=== PATIENT | female | born 1980 | race Caucasian/White ===

== ENCOUNTER 2023-05-05 08:56 | Outpatient (OUT) | payer OTHER, SELFPAY ==
[2023-05-05 09:53] LABS: Basophils Percent Auto 0.3 % (0.2-2.0); Eosinophils Absolute Auto 0.1 10^3/uL (0.0-0.7); Eosinophils Percent Auto 1.2 % (0.9-7.0); Hematocrit 36.1 % (36.0-48.0); Hemoglobin 11.2 g/dL (12.0-16.0); Immature Granulocytes Pct Auto 0.8 % (0.0-0.5); Lymphocytes Absolute Auto 2.1 10^3/uL (1.2-3.8); Lymphocytes Percent Auto 17.1 % (20.5-60.0); Mean Corpuscular Hemoglobin 26.3 pg (26.7-34.0); Mean Corpuscular Volume 84.7 fL (81.0-99.0); Mean Platelet Volume 9.4 fL (9.5-13.5); Monocytes Absolute Auto 0.9 10^3/uL (0.3-0.8); Monocytes Percent Auto 7.5 % (1.7-12.0); Neutrophils Absolute Auto 8.9 10^3/uL (1.4-6.5); Neutrophils Percent Auto 73.1 % (43.0-75.0); Platelet Count 412 10^3/uL (150-450); Red Blood Count 4.26 10^6/uL (4.20-5.40); Red Cell Distribution Width 14.3 % (11.0-15.0); White Blood Count 12.1 10^3/uL (4.0-11.0)
[2023-05-05 10:12] LABS: Alanine Aminotransferase 42 U/L (14-59); Albumin Globulin Ratio 0.8; Albumin Level 3.6 g/dL (3.4-5.0); Alkaline Phosphatase 134 U/L (46-116); Anion Gap 14.6; Aspartate Amino Transferase 26 U/L (15-37); BUN Creatinine Ratio 11.2; Bilirubin Total 0.2 mg/dL (0.2-1.0); Calcium 9.1 mg/dL (8.5-10.1); Carbon Dioxide 27.7 mmol/L (21.0-32.0); Chloride 99 mmol/L (98-107); Estimated GFR (African America >60 (>=60); Estimated GFR (Non-African Ame >60 (>=60); Globulin 4.6 g/dL; Glucose 123 mg/dL (74-106); Potassium 4.3 mmol/L (3.5-5.1); Sodium 137 mmol/L (136-145); Total Protein 8.2 g/dL (6.4-8.2)
[2023-05-05 10:14] LABS: Bilirubin Urine NEGATIVE (NEGATIVE); Blood Urine NEGATIVE (NEGATIVE); Clarity Urine CLEAR (CLEAR); Color Urine LT. YELLOW (YELLOW); Glucose Urine UA NEGATIVE (NEGATIVE); Ketones Urine NEGATIVE (NEGATIVE); Leukocyte Esterase Urine NEGATIVE (NEGATIVE); Nitrite Urine NEGATIVE (NEGATIVE); Protein Urine NEGATIVE (NEG/TRACE); Specific Gravity Urine >=1.030 (1.005-1.025); Urobilinogen Urine 0.2 EU/dL (0.2-1.0); pH Urine 5.5 (5.0-9.0)
[2023-05-05 10:22] LABS: Bacteria Urine SMALL #/HPF (NONE SEEN); Crystals Seen? None Seen #/HPF (None Seen); Free T3 2.71 pg/mL (2.18-3.98); Mucus Urine NONE SEEN (NONE SEEN); RBC Urine 0-2 #/HPF (0-2); Squamous Epithelial Cell Urine RARE #/LPF (NONE/RARE); Thyroid Stimulating Hormone 2.679 uIU/mL (0.358-3.740); WBC Urine NONE SEEN #/HPF (NONE SEEN)
[2023-05-05 10:23] LABS: Cast Seen? NONE SEEN #/LPF (NONE SEEN)
[2023-05-05 10:53] LABS: Estimated Average Glucose 131 mg/dL; Glycohemoglobin A1C 6.2 % (4.5-6.2)
[2023-05-06 04:08] LABS: Homocyst(e)ine 6.9 umol/L (0.0-14.5); Progesterone 7.9 ng/mL (.); Prolactin 21.4 ng/mL (4.8-23.3)
[2023-05-06 06:08] LABS: FSH 2.3 mIU/mL (.)
[2023-05-07 07:08] LABS: Mercury, Whole Blood 1.2 ug/L (0.0-14.9)
[2023-05-07 11:09] LABS: Lead, Blood (Adult) <1.0 ug/dL (0.0-3.4)
== END 2023-05-05 08:57 ==
LOC: LAB 09:01
PROVIDERS: PCP Family Medicine; Visit Provider Family Medicine
DX: R73.09 Other abnormal glucose (principal); I10 Essential (primary) hypertension; R31.9 Hematuria, unspecified
CPT/HCPCS: 36415; 80053; 81001; 82670; 83001; 83036; 83090; 83655; 83825; 84144; 84146; 84436; 84443; 84481; 85025; 87086

== ENCOUNTER 2023-10-29 16:45 | Outpatient (OUT) | payer OTHER, SELFPAY ==
[2023-10-29 17:07] LABS: Basophils Absolute Auto 0.1 10^3/uL (0.0-0.1); Basophils Percent Auto 0.3 % (0.2-2.0); Eosinophils Absolute Auto 0.1 10^3/uL (0.0-0.7); Eosinophils Percent Auto 0.7 % (0.9-7.0); Hematocrit 34.8 % (36.0-48.0); Hemoglobin 11.1 g/dL (12.0-16.0); Immature Granulocytes Abs Auto 0.07 10^3/uL (0.00-0.03); Immature Granulocytes Pct Auto 0.5 % (0.0-0.5); Lymphocytes Absolute Auto 2.7 10^3/uL (1.2-3.8); Lymphocytes Percent Auto 18.2 % (20.5-60.0); Mean Corpuscular HGB Conc 31.9 g/dL (29.9-35.2); Mean Corpuscular Hemoglobin 27.3 pg (26.7-34.0); Mean Corpuscular Volume 85.7 fL (81.0-99.0); Mean Platelet Volume 9.4 fL (9.5-13.5); Monocytes Absolute Auto 0.9 10^3/uL (0.3-0.8); Monocytes Percent Auto 6.3 % (1.7-12.0); Neutrophils Absolute Auto 10.9 10^3/uL (1.4-6.5); Platelet Count 463 10^3/uL (150-450); Red Blood Count 4.06 10^6/uL (4.20-5.40); Red Cell Distribution Width 13.8 % (11.0-15.0); White Blood Count 14.8 10^3/uL (4.0-11.0)
== END 2023-10-29 16:46 | disposition home or self-care (01) ==
PROVIDERS: PCP Family Medicine; Visit Provider Obstetrics & Gynecology
DX: N92.0 Excessive and frequent menstruation with regular cycle (principal)
CPT/HCPCS: 36415; 85025

== ENCOUNTER 2023-10-30 16:53 | Outpatient (OUT) | payer OTHER, SELFPAY ==
--- NOTE | 2023-10-30 | US_ITS ---
The [address] [address] Patient Name: LAURA TRUJILLO MRN: [id number] date: 1980 Sex: F Assigned Patient Location: Current Patient Location: Accession/Order Number: [id number] Exam Date: 10/30/2023 17:00 Report Date: 10/31/2023 06:48 At the request of: RENEE HA Procedure: US pelvis w/ transvaginal EXAMINATION: US pelvis w/ transvaginal HISTORY: Menorrhagia with regular cycle, N92.0 COMPARISON: No relevant comparison available. TECHNIQUE: Transabdominal and/or transvaginal sonographic examination was performed as indicated by examination type. FINDINGS: UTERUS: Numerous nabothian cysts within shelley of cervix, largest is 1.7 cm. Normal size, contour, and echotexture of the uterus. Uterus size: 10.2 x 5.5 x 5.2 cm ENDOMETRIUM: Heterogeneous echotexture and approaching upper limits of normal in thickness. Endometrial thickness: 13 mm RIGHT OVARY: Normal size and appearance. Blood flow present within ovary on color Doppler. Ovary size: 3.1 x 1.6 x 3.2 cm LEFT OVARY: Not seen. CUL-DE-SAC: Unremarkable. No significant free fluid. BLADDER: Unremarkable. OTHER: None. US/US pelvis w/ transvaginal IMPRESSION: 1. Heterogeneous endometrium, but no specific findings to account for patient's symptoms. Thickness approaches upper limits of normal; correlate with patient's stage in her menstrual cycle. Electronically authenticated by: BRIDGETTE PICKERING Date: 10/31/2023 06:48
== END 2023-10-30 16:54 | disposition home or self-care (01) ==
LOC: US 16:53
PROVIDERS: Visit Provider Obstetrics & Gynecology
DX: N92.0 Excessive and frequent menstruation with regular cycle (principal)
CPT/HCPCS: 76830; 76856

== ENCOUNTER 2024-01-27 08:49 | Outpatient (OUT) | payer SELFPAY ==
--- OUTSIDE RECORDS SUMMARY | 2024-01-27 08:55 | XMS_ITS | CCD ---
Author Name Unknown Address [address] [facility] [address] [place] [address] Organization [facility] Care Team Providers Care Straight Line Press Setter Name Role Phone Nill, Kyle R Unavailable Unavailable Nill, Kyle R Unavailable Unavailable Nill, Kyle R Unavailable Unavailable Joey, [phone] UNKNOWN Unavailable Unavailable JOEY, DR BRYAN Admitting Unavailable HOY, DR BRYAN Attending Unavailable HOY, DR BRYAN Primary Care Unavailable HOY, DR BRYAN Consulting Unavailable HOY, DR BRYAN Admitting Unavailable HOY, DR BRYAN Attending Unavailable HOY, DR BRYAN Primary Care Unavailable HOY, DR BRYAN Consulting Unavailable WEST, DR RALF Castillo Consulting Unavailable HOY, DR BRYAN Admitting Unavailable HOY, DR BRYAN Attending Unavailable HOY, DR BRYAN Primary Care Unavailable HOY, DR BRYAN Consulting Unavailable HOY, DR BRYAN Admitting Unavailable HOY, DR BRYAN Attending Unavailable HOY, DR BRYAN Primary Care Unavailable MISBAHY, DR BRYAN Consulting Unavailable Allergies Allergy Classification Reported Allergen(s) Allergy Type Date of Onset Reaction(s) Facility (1 source) Latex; Translations: [Latex] Propensity to adverse reactions (disorder) [facility] Active Problems Problem Classification Problem Date Documented Da te Episodic/Chronic Cardiac dysrhythmias (4 sources) Palpitations; Translations: [PALPITATIONS] Onset: 07-17-2022 Episodic Unclassified (3 sources) CONTACT W/AND (SUSP) EXPOS COVID-19; Translations: [CONTACT W/AND (SUSP) EXPOS COVID-19] Onset: 11-15-2021 Viral infection (1 source) COVID-19; Translations: [COVID-19] Onset: 08-11-2022 Past or Other Problems Problem Classification Problem Date Documented Da te Episodic/Chronic Acute bronchitis (1 source) Acute bronchitis, unspecified; Translations: [ACUTE BRONCHITIS UNSPECIFIED] Onset: 11-15-2021 Episodic Other diseases of veins and lymphatics (4 sources) Compression of vein; Translations: [COMPRESSION OF VEIN] Onset: 08-27-2021 Episodic Unclassified (1 source) CONTACT W/AND (SUSP) EXPOS COVID-19; Translations: [CONTACT W/AND (SUSP) EXPOS COVID-19] Onset: 08-08-2022 Results Test Name Value Interpretation Reference Range Facility Covid-19 PCR (CVDTB)on SARS-CoV-2 (COVID-19) RNA ANKITA+probe Ql (Unsp spec) Detected Critically abnormal NOT DETECTED [facility] Comment on above: Result Comment: This test is not yet zoe roved or cleared by the [place] FDA. When there are no FDA-approved or cleared tests available, and other criteria are met, FDA can make tests available under an emergency access mechanism called an Emergency Use Authorization (EUA). The EUA for this test is supported by the [place] of Health and Human Service's declaration that circumstances exist to justify the emergency use of in vitro diagnostics for the detection and/or diagnosis of the virus that causes COVID-19. This EUA will remain in effect for the duration of the COVID-19 declaration justifying emergency of IVDs, unless it is terminated or revoked by the FDA (after which the test may no longer be used). Performed By: #### [facility] #### [facility] [address] [place] [address] Dr. Bessie Pro Covid-19 PCR (CVDTB)on 10-31 SARS-CoV-2 (COVID-19) RNA ANKITA+probe Ql (Unsp spec) Not detected Normal NOT DETECTED [facility] Comment on above: Result Comment: This test is not yet zoe roved or cleared by the [place] FDA. When there are no FDA-approved or cleared tests available, and other criteria are met, FDA can make tests available under an emergency access mechanism called an Emergency Use Authorization (EUA). The EUA for this test is supported by the [place] Worker of Health and Human Service's (HHS's) declaration that circumstances exist to justify the emergency use of in vitro diagnostics for the detection and/or diagnosis of the virus that causes COVID-19. This EUA will remain in effect (meaning this test can be used) for the duration of the COVID-19 declaration justifying emergency of IVDs, unless it is terminated or revoked by FDA (after which the test may no longer be used). When diagnostic testing is negative, the possibility of a false negative should be considered in the context of a patient's recent exposures and the presence of clinical signs and symptoms consistent with SARS-CoV-2. Performed By: #### [facility] #### [facility] [address] ABD/PELVIS WO CONon 08-27 CT ABD/PELVIS WO CON EXAMINATION: CT ABD/PELVIS WO CON, 08/27/2021 8:31 AM EDT HISTORY: Obstruction of vein COMPARISON: None. TECHNIQUE: CT scan of the abdomen and pelvis was performed without IV contrast. CT dose reduction technique was used, including Automated Exposure Control. FINDINGS: LUNG BASES: 3 mm left lower lobe soft tissue density punctate nodule LIVER: No enlargement, atrophy, abnormal density, or significant focal lesion. BILIARY: No dilatation or calcification. PANCREAS: No lesion, fluid collection, ductal dilatation, or atrophy. SPLEEN: No enlargement or focal lesion. ADRENALS: No mass or enlargement. KIDNEYS: No mass, obstruction, or calcification. BOWEL/MESENTERY: No visible mass, obstruction, or bowel wall thickening. AORTA/VASCULAR: No aneurysm or dissection. RETROPERITONEUM: No mass or adenopathy. LYMPH NODES: No adenopathy. URINARY BLADDER: No visible focal wall thickening, lesion, or calculus. PELVIC ORGANS: Heterogeneous appearance of the lower uterine segment and cervix. Tubal ligation clips ABDOMINAL WALL: No mass or hernia. BONES: No bony lesion or fracture. OTHER: Negative. IMPRESSION: No central venous obstruction observed on this noncontrast exam Heterogeneous appearance of the lower uterine segment and cervix. Consider ultrasound for further evaluation Electronically authenticated by: RALF BENNETT Date: 2021-08-27 09:54 Normal [facility] Coding Summary.on 05-28-2018 Coding Summary. 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: Commercial Insurance APC DESCRIPTION 5301 Level 1 Upper GI Procedures 5311 Level 1 Lower GI Procedures ADMIT DX: REASON FOR VISIT DX: R10.10 Upper abdominal pain, unspecified FINAL DX: PRINCIPAL: K29.50 Unspecified chronic gastritis without bleeding SECONDARY: K44.9 Diaphragmatic hernia without obstruction or gangrene R19.4 Change in bowel habit K62.5 Hemorrhage of anus and rectum K21.9 Gastro-esophageal reflux disease without esophagitis I10 Essential (primary) hypertension F41.9 Anxiety disorder, unspecified F17.210 Nicotine dependence, cigarettes, uncomplicated E66.9 Obesity, unspecified Z68.39 Body mass index (BMI) 39.0-39.9, adult PYMT PROC APC STAT DESCRIPTION DOCTOR NAME DATE [id number] Kyle Churchill MD 05/25/2018 phagogastroduodenoscopy, flexible, transoral; with biopsy, single or multiple [id number] T Colonoscopy, flexible; Kyle Churchill MD 05/25/2018 diagnostic, including collection of specimen(s) by brushing or washing, when performed (separate procedure) 75951 Anesthesia for combined Kyle Churchill MD 05/25/2018 upper and lower gastrointestinal endoscopic procedures, endoscope introduced both proximal to and distal to the duodenum NOTE: The code number assigned matches the documented diagnosis and / or procedure in the patient's chart. However, the narrative phrase printed from the coding software may appear abbreviated, or result in slightly different terminology. Coded By: Deisy Robles Date Saved: 05/28/2018 02:11 pm [facility] Main OR Intraoperative Recor sabra 05-26-2018 Main OR Intraoperative Record IntraOp Document Type FT Summary Primary Physician: Kyle Churchill MD Finalized Date/Time: 05/26/18 12:57:13 Pt. Name: LAURA TRUJILLO/Sex: 1980 Female Med Rec #: [id number] Physician: Kyle Churchill MD Financial #: [id number] Pt. Type: O Room/Bed: / Admit/Disch: 05/25/18 06:36:31 - 05/25/18 23:59:59 Institution: Case Times FT Entry 1 Patient Times In Room 05/25/18 08:02:00 Out Room 05/25/18 08:28:00 Procedure Times Start 05/25/18 08:09:00 Stop 05/25/18 08:26:00 Anesthesia Times Start 05/25/18 08:02:00 Stop 05/25/18 08:28:00 Time at [place] 05/25/18 08:20:00 Last Modified By: Petra Cohen CST 05/25/18 08:28:32 General Comments: 0815 Colonoscopy started 05/26/2018 Chart opened to review and send charges [facility] PICKING TECH Case Attendance FT Entry 1 Entry 2 Entry 3 Case Attendee Herbert LOCK, Amira Churchill MD, Kyle Woods RN, Venessa Shabazz Role Performed Anesthesiologist Surgeon - Primary Fleet Dispatch Manager - Primary Seismograph Shooter Time In 05/25/18 08:02:00 05/25/18 08:02:00 05/25/18 08:02:00 Time Out 05/25/18 08:28:00 05/25/18 08:28:00 05/25/18 08:28:00 Procedure EGD AND COLONOSCOPY(.) EGD AND COLONOSCOPY(.) EGD AND COLONOSCOPY(.) Comments Dr. Bae supervising Last Modified By: Peggy RN, Venessa Woods RN, Venessa Woods RN, Venessa Shabazz 05/25/18 10:06:46 05/25/18 08:28:33 05/25/18 08:28:33 Entry 4 Entry 5 Case Attendee Gael PATTERSON, Richa Gonzales CST, Conner Braxton Role Performed Fleet Dispatch Manager - Primary Scrub - Primary Time In 05/25/18 08:02:00 05/25/18 08:02:00 Time Out 05/25/18 08:28:00 05/25/18 08:28:00 Procedure EGD AND COLONOSCOPY(.) EGD AND COLONOSCOPY(.) Comments Last Modified By: Peggy PATTERSON, Venessa Woods RN, Venessa N 05/25/18 08:28:33 05/25/18 08:28:33 General Comments: Dr. Bae supervising Perioperative Protocols FT Pre-Care Text: Implements protective measures prior to operative or invasive procedure, confirms identity before the operative or invasive procedure, verifies operative procedure, surgical site, and laterality Entry 1 Procedure(s) EGD AND COLONOSCOPY(.) Patient Identity Birthday, Blood Band, Verified (select at ID Band Check, Patient least 2): Participation Consents / H and P Anesthesia Consent, Operative Site N/A Verified HandP, Surgery/Procedure Marking Verified Consent Surgical Site Yes Laterality Verified Yes Verified Procedure Verified Yes Correct Patient Yes Position Verified Availability Equipment, Medication Prep Dry Yes Verified (If Applicable) PreOp Antibiotic No Time Out Herbert LOCK, Amira M, Given Participants Zhao ARGUELLO, Kyle Larry, Peggy PATTERSON, Venessa Shabazz, Gael RN, Richa Braxton, Christian HERNÁNDEZ, Conner Braxton Time Out Complete 05/25/18 08:05:00 Outcomes Met? Yes Last Modified By: Venessa Woods RN 05/25/18 08:29:08 Post-Care Text: The patient is free from signs and symptoms of injury caused by extraneous objects Allergy Information FT Pre-Care Text: Verifies allergies Entry 1 Allergies Reviewed? Yes Allergies Reviewed Self/Patient With Outcomes Met? Yes Last Modified By: Venessa Woods RN 05/25/18 07:02:29 Post-Care Text: The patient received appropriate medication(s) safely administered during the perioperative period Surgical Procedures FT Entry 1 Procedure Description Procedure EGD AND COLONOSCOPY Modifiers . Surgeon Description Small hiatia hernia, mild antral gastritis, normal colon Primary Procedure Yes Primary Surgeon Zhao ARGUELLO, Kyle Larry Start 05/25/18 08:09:00 Stop 05/25/18 08:26:00 Anesthesia Type General Surgical Service General Wound Class 2 - Clean-Contaminated Last Modified By: Venessa Woods RN 05/26/18 12:57:11 General Case Data FT Pre-Care Text: Classifies surgical wound, implements aseptic technique, initiates traffic control Entry 1 Case Information OR ENDO 2 FT Case Level Level 2 Wound Class 2 - Clean-Contaminated Specialty General ASA Class 2 Preop Diagnosis BLOOD IN STOOL, Postop Same As Preop No EPIGASTRIC PAIN, GERD Postop Diagnosis small hiatia hernia, Outcomes Met? Yes mild antral gastritis, normal colon Last Modified By: Venessa Woods RN 05/25/18 08:31:18 Post-Care Text: The patient is free from signs and symptoms of infection Skin Assessment (Pre Procedure) FT Pre-Care Text: Implements protective measures to prevent skin/ tissue injury due to thermal or mechanical sources Evaluates for signs and symptoms of physical injury to skin and tissue Entry 1 Skin Integrity Intact, [place], Warm, and Skin Abnormality No Dry Outcomes Met? Yes Last Modified By: Venessa Woods RN 05/25/18 07:03:36 Post-Care Text: The patient is free from signs and symptoms of injury caused by extraneous objects Patient Positioning FT Pre-Care Text: Identifies physical alterations that require additional precautions for procedure-specific positioning, verifies presence of prosthetics or corrective devices, positions the patient, evaluates the patient for signs and symptoms of injury as a result of positioning Entry 1 Procedure EGD AND COLONOSCOPY(.) Body Position Lateral, right side up Feet Uncrossed? Yes Left Arm Position Resting at Side Right Arm Position Resting at Side Left Leg Position Extended Right Leg Position Extended Positioning Device Pillow Under Head Large Press Points Checked Yes By Venessa Woods RN, Amira Bermudez Nill MD, Kyle Larry Outcomes Met? Yes Last Modified By: Venessa Woods RN 05/25/18 07:05:10 Post-Care Text: The patient is free from signs and symptoms of injury related to positioning Patient Care Devices FT Pre-Care Text: Implements protective measures to prevent skin/ tissue injury due to thermal or mechanical sources Entry 1 Entry 2 Equipment Type ENDOSCOPY VIDEO MONITOR CHARGE SURGERY SYSTEM[F] [F] Equipment Number Equipment Setting Outcomes Met? Yes Yes Last Modified By: Venessa Woods RN, RN, Tara N 05/26/18 12:56:47 05/26/18 12:56:47 Post-Care Text: The patient is free from signs and symptoms of injury caused by extraneous objects Transport To OR Pre-Care Text: Transports according to individual needs. Evaluates for signs and symptoms of skin and tissue injury as a result of transfer or transport Entry 1 Via Cart By Venessa Woods RN Safety Precautions Side Rails Up Outcomes Met? Yes Last Modified By: Venessa Woods RN 05/25/18 07:06:00 Post-Care Text: The patient is free from signs and symptoms of injury related to transfer/transport Departure From OR Pre-Care Text: Transports according to individual needs. Evaluates for signs and symptoms of skin and tissue injury as a result of transfer or transport. Entry 1 Via Cart Safety Precautions Side Rails Up PostOp Destination PACU Transported By Venessa Woods RN Patient Status Stable Skin. Condition Intact, [place], Warm, and Dry Airway Maintenance Oxygen in Use? No Outcomes Met? Yes Last Modified By: Venessa Woods RN 05/25/18 07:06:29 Post-Care Text: The patient is free from signs and symptoms of injury related to transfer/transport General Comments: Report given to LAUNDERER HAND - MARGE PATTERSONcutter operator Administration FT Pre-Care Text: Verifies allergies, administers prescribed medications and solutions, administers prescribed antibiotic therapy and immunizing agents as ordered, evaluates response to medications Administers prescribed medications and solutions Entry 1 Route of Admin Field Expiration Date Yes Verified Outcomes Met? Yes Last Modified By: Venessa Woods RN 05/25/18 07:06:41 Post-Care Text: The patient received appropriate medication(s) safely administered during the perioperative period For [facility] please see scanned medication reconcilliation form for medications used at the field during the procedure. Cultures and Specimens FT Pre-Care Text: Manages specimen handling and disposition Manages culture specimen collection Entry 1 Specimens Ordered Yes Specimen Disposition Designated OR Area Frozen Section Times Outcomes Met? Yes Last Modified By: Venessa Woods RN 05/25/18 07:07:22 Post-Care Text: The patient is free from signs and symptoms of injury caused by extraneous objects The patient is free from signs and symptoms of infection Case Comments Finalized By: Venessa Woods RN Document Signatures Signed By: Venessa Woods RN 05/25/18 08:31 Petra Cohen CST 05/26/18 12:15 Venessa Woods RN 05/26/18 12:57 [facility] History and Physicalon 05-25 History and Physical Patient: LAURA TRUJILLO Age: 38 years Sex: Female : 1980 Associated Diagnoses: None Author: Kyle Churchill MD Subjective no changes to H & P [facility] Comment on above: Result Comment: Electronically Signed By : Kyle Churchill MD\.br\Date and Time Signed: 05/25/18 08:33 EDT Inpatient Patient Summaryon 05-25-2018 In[facility] Dis[facility] InstructionsPERSON INFORMATION Name: LAURA TRUJILLO PHYSICIANS Admitting Physician: Kyle Churchill MD Physician: Kyle Churchill MD PCP: Alber Cook MD Diagnosis: Antral gastritis Comment: PATIENT EDUCATION INFORMATIONInstructions:Medicati on Leaflets:Follow up:With: Address: When: Kyle Churchill [address] [place] [phone] Business (1) Within 2 weeks MEDICATION LISTComment: [facility] Main OR PACU I Recordon 05-02 Main OR PACU I Record PACU Phase I Document Type FT Summary Primary Physician: Kyle Churchill MD Finalized Date/Time: 05/25/18 09:10:36 Pt. Name: LAURA TRUJILLO Clay UgaldeB./Sex: 1980 Female Med Rec #: [id number] Physician: Kyle Churchill MD Financial #: [id number] Pt. Type: O Room/Bed: / Admit/Disch: 05/25/18 06:36:31 - Institution: Case Times PACU I FT Pre-Care Text: Identifies barriers to communication and implements measures to provide psychological support Develops individualized plan of care, and ensures continuity of care Maintains patient's dignity and privacy, and maintains patient confidentiality Identifies and reports philosophical, cultural, and spiritual beliefs and values Identifies individual values and wishes concerning care Implements aseptic technique, and administers prescribed antibiotic therapy and immunizing agents as ordered Evaluates postoperative tissue perfusion Implements thermoregulation measures, and monitors body temperature Evaluates postoperative respiratory status Evaluates postoperative cardiac status Evaluates postoperative neurological status Assesses pain control, collaborated in initiating patient-controlled analgesia and implements alternative methods of pain control Verifies allergies, administers prescribed medications and solutions, evaluates response to medications Entry 1 In PACU I 05/25/18 08:29:00 Discharge from PACU 05/25/18 08:59:00 I Outcomes Met? Yes Last Modified By: Mary Rodriguez RN 05/25/18 09:10:26 Post-Care Text: The patient demonstrates knowledge of the expected response to the operative or invasive procedure The patient's care is consistent with the individualized perioperative plan of care The patient's right to privacy is maintained The patient's value system, lifestyle, ethnicity, and culture are considered, respected, and incorporated into the perioperative plan of care The patient participates in decisions affecting his or her perioperative plan of care The patient is free from signs and symptoms of infection The patient has wound/tissue perfusion consistent with or improved from baseline levels established preoperatively The patient is at or returning to normothermia at the conclusion of the immediate postoperative period The patient's respiratory function is consistent with or improved from baseline levels established preoperatively The patient's cardiovascular status is consistent with or improved from baseline levels established preoperatively The patient's cardiovascular status is consistent with or improved from baseline levels established preoperatively The patient demonstrates and/or reports adequate pain control throughout the perioperative period The patient received appropriate medication(s), safely administered during the perioperative period Acuity Level PACU I FT Entry 1 Start Time 05/25/18 08:29:00 Stop Time 05/25/18 08:59:00 Acuity Level Acuity Level I Last Modified By: Mary Rodriguez RN 05/25/18 09:10:35 Finalized By: Mary Rodriguez RN Document Signatures Signed By: Mary Rodriguez RN 05/25/18 09:10 [facility] Main OR Preoperative Recordo n 05-25-2018 Main OR Preoperative Record Holding Area Document Type FT Summary Primary Physician: Kyle Churchill MD Finalized Date/Time: 05/25/18 07:18:47 Pt. Name: CASSANDRALAURA/Sex: 1980 Female Med Rec #: [id number] Physician: Kyle Churchill MD Financial #: [id number] Pt. Type: O Room/Bed: / Admit/Disch: 05/25/18 06:36:31 - Institution: Case Times Holding FT Pre-Care Text: Verifies consent for planned procedure, identifies individual values and wishes concerning care, includes family members in perioperative teaching Secures patient's records' belongings, and valuables, maintains patient's dignity and privacy, and maintains patient confidentiality Entry 1 In Holding 05/25/18 06:46:00 Outcomes Met? Yes Last Modified By: Carla Curyr RN 05/25/18 07:01:53 Post-Care Text: The patient participates in decisions affecting his or her perioperative plan of care The patient's right to privacy is maintained Surgery Checklist FT Entry 1 Patient Birthday, ID Band Procedure History and Physical, Identification: Check, Patient Verification: Surgical Consent, With Participation Patient NPO after Midnight: Yes Results Reviewed None Comments: Personal Items: Jewelry Personal Items Ring Comment: Complaints of Pain: No Pain Comment: Denies Operative Site n/a Availability Equipment Marking: Verified: Does Patient Smoke Yes If Yes to Smoking. 1/2 ppd / vapor Cigars or Cigarettes. How much per day? Patient states Yes Comment - Adult Spouse/daughter postop adult Supervision supervision available Case Cancelled in No Holding Area see comments below for reason Last Modified By: Carla Curry RN 05/25/18 07:18:39 Finalized By: Carla Curry RN Document Signatures Signed By: Carla Curry RN 05/25/18 07:18 [facility] Operative Reporton Operative Report Date of Surgery: 05/25/2018SURGEON: Kyle Churchill M.D.PREOPERATIVE DIAGNOSIS: Upper abdominal pain, bowel changes, globussensation, gastroesophageal reflux diseasePOSTOPERATIVE DIAGNOSIS: Small sliding type hiatal hernia as well as mildantral gastritis, normal colonoscopy to cecumOPERATION: Esophagogastroduodenoscopy with antral biopsy, cold biopsyforceps and colonoscopy to cecumANESTHESIA: GeneralINDICATIONS AND CONSENT: The patient is a 38 year old female with longhistory of abdominal complaints with a globus sensation as well as somereflux symptoms and nonspecific abdominal pain as well as bowel changes.Indications, risks, benefits, alternatives of proceeding withesophagogastroduodenoscopy and colonoscopy were explained extensively tothe patient including risk of bleeding, aspiration, esophagogastric,colonic perforation or anesthetic complications. All of her questions wereanswered. Informed consent was obtained.PROCEDURE: The patient brought to the Operating Room and placed in theleft lateral decubitus position. Monitored anesthesia care was provided.Bite block was placed in the patient's mouth. Scope was inserted into theoropharynx. Under direct visualization it was advanced into the esophagus,past the cricopharyngeus down to the stomach. The stomach was insufflatedwith air. The pylorus was traversed down the descending portion of theduodenum. There was no evidence of duodenitis or ulcerations. No scarringwithin the pyloric channel. The scope was pulled back into the stomach.There was noted to be some mild antral gastritis without ulceration. Biopsywas obtained with cold biopsy forceps with good hemostasis. The scope wasretroflexed. There was noted to be a small sliding type hiatal hernia. Thegastroesophageal junction was noted at 38 cm. There was no distalesophagitis of Tan's changes. The remained of the esophagus wasunremarkable. The scope was then withdrawn. The patient was thenpositioned for colonoscopy. Rectal examination was performed whichrevealed no masses or blood. The scope was then inserted at the anal canal.Under direct visualization it was advanced. It was advanced to the cecumwhere cecal markings were clearly identified. Upon withdrawal of the scopethe mucosal surfaces were carefully examined. There were no mass, lesionsor polyps. No inflammatory changes or ulcerations. No significantdiverticulosis. The scope was retroflexed in the anal canal. There wasnoted to be some prominent rectal veins. No significant hemorrhoidaldisease. The scope was then withdrawn. The patient tolerated the procedurewell and was sent to Recovery Room in good condition.Kyle Churchill M.D.lkrDictated: 05/25/2018 #[id number]: 05/25/2018 #[id number]: Tai Courtney M.D. [facility] Comment on above: Result Comment: Electronically Signed By : Kyle Churchill MD\Date and Time Signed: 05/25/18 09:18 EDT Patient Education - Texton 0 05-25-2018 Patient Education - Text [facility] Progress Note-Physicianon Progress Note-Physician Patient: LAURA TRUJILLO Age: 38 years Sex: Female : 1980 Associated Diagnoses: None Author: Petr Bae JR, DO Postoperative Information Post Operative Note: Post Anesthesia Care Unit. Anesthetic utilized: General, Monitored anesthesia care. Health Status Allergies: Allergic Reactions (Selected)Severity Not DocumentedLatex- Unknown. Current medications: (Selected) Inpatient MedicationsOrderedSodium Chloride 0.9% IV Evelin 1000 mL 1,000 mL: 1,000 mL, IV, 20 mL/hr, Routine, Start date 05/25/18 7:03:00 EDT, 50 hour(s), Total volume (mL): 1,000Documented MedicationsDocumentedCardizem: 240 mg, Oral, Daily, Refills(s) 0, Irregular heartbeatCelexa: 40 mg, Oral, Daily, Refills(s) 0, DepressionProtonix: 40 mg, Oral, Daily, Refills(s) 0, Control of stomach acidlisinopril: 10 mg, Oral, Daily, Refills(s) 0, High blood pressure Problem list: No problem items selected or recorded. Physical Examination Intake and Output Denies significant n/v and is tolerating p.o. Vitals Signs (last 24 hrs) Last Charted Minimum MaximumTemp 36.7 (MAY 25 08:29) 36.7 (MAY 25 07:01) 36.7 (MAY 25 07:01)Heart Rate L 58 (MAY 25 08:50) L 58 (MAY 25 07:01) 92 (MAY 25 08:05)Resp Rate 17 (MAY 25 08:50) 13 (MAY 25 08:35) 17 (MAY 25 08:40)SBP 122 (MAY 25 08:50) 94 (MAY 25 08:25) 148 (MAY 25 08:10)DBP 77 (MAY 25 08:50) 48 (MAY 25 08:20) 115 (MAY 25 08:08)SpO2 99 (MAY 25 08:50) 97 (MAY 25 07:01) 100 (MAY 25 08:05) Pain assessment: Pain Assessment 05/25/2018 08:50 EDT Pain Symptoms Self Report No, able to self report 05/25/2018 08:40 EDT Pain Symptoms Self Report No, able to self report 05/25/2018 08:29 EDT Pain Symptoms Self Report No, able to self report . Respiratory: Adequate air exchange with temple of preoperative function.. Cardiovascular: Cardiovascular function is stable and has returned to preoperative levels.. Neurologic: Pt has returned to preoperative baseline.. Review / Management Condition: Stable. Assessment Anesthetic outcome No anesthetic complications noted. Plan Transfer/ Discharge: Patient can be discharged from PACU when criteria met. Condition good. [facility] Comment on above: Result Comment: Electronically Signed By : Petr Bae JR, DO\.br\Date and Time Signed: 05/25/18 10:34 EDT Progress Note-Physicianon Progress Note-Physician Patient: LAURA TRUJILLO Age: 38 years Sex: Female : 1980 Associated Diagnoses: None Author: Petr Bae JR, DO Preoperative Information Anesthesia history: Patient History: Pt./ family denies any personal or family hx of problems/difficulties with anesthesia.. Re-eval prior to induction: Inital eval reviewed: No significant interval change, NPO 10 hours, except for GI. prep which ( when administered ), was completed at least 4 hours prior to the procedure.. Anesthesia results Review of Systems Constitutional: See nursing assessment.. Cardiovascular: Cardiac risk assessment performed. Pt. denies any significant change in their cv hx.. Respiratory: Pt. denies any signicant change in their respiratory status.. Neurologic: Pt. denies any acute neurological changes.. Health Status Allergies: No active allergies have been recorded., No qualifying data available Current medications: (Selected) Documented MedicationsDocumentedCardizem: 240 mg, Oral, Daily, Refills(s) 0, Irregular heartbeatCelexa: 40 mg, Oral, Daily, Refills(s) 0, DepressionProtonix: 40 mg, Oral, Daily, Refills(s) 0, Control of stomach acidlisinopril: 10 mg, Oral, Daily, Refills(s) 0, High blood pressure, No qualifying data available Problem list: No problem items selected or recorded., No qualifying data available Histories Past Medical History: No active or resolved past medical history items have been selected or recorded. Family History: No family history items have been selected or recorded. Procedure history: No active procedure history items have been selected or recorded. Social History Social & Psychosocial HabitsNo Data Available. Physical Examination No qualifying data available Airway: Normal oral/pharyngeal anatomy.. Respiratory: Adequate air exchange.. Cardiovascular: Adequate perfusion and function. Review / Management Results review: No qualifying data available. Plan [place] Society of Anesthesiologists (ASA) physical status classification: Class II. Anesthetic Preoperative Plan Anesthesia: Monitored anesthesia care and general anesthesia if required.. Anesthetic plan, risks, benefits, and alternatives discussed with the patient and/or family. Pt. and/or family present and agree to proceed as planned.. Discussed the importance of abstaining from tobacco products, and offered counseling if desired.. [facility] Comment on above: Result Comment: Electronically Signed By : Petr Bae JR, DO.joie\Date and Time Signed: 05/24/18 19:59 EDT Encounters Encounter Date Encounter Type Care Provider Facility Start: 08-08-2022 End: 08-08-[address] IRVIN COOK Facility:[facility] Start: 07-17-2022 End: 07-18-[address] IRVIN COOK Facility:[facility] Start: 11-09-2021 End: 11-09-[address] IRVIN COOK Facility:[facility] Start: 08-27-2021 End: 08-28-[address] IRVIN COOK Facility:[facility] Start: 05-25-2018 End: 05-26-2018 Ambulatory Kyle Churchill Facility:[facility] Payers Date Payer Category Payer Private Health Insurance 1980 Unknown [id number] [id number] [id number] 1980 Unknown [id number] [id number] [id number] 1980 Unknown [id number] 2.16.84 [id number] 1980 Unknown [id number] 2.16.84 [id number] 1958 Private Health Insurance [id number] 1958 Private Health Insurance [id number] Summary Purpose Family History No Family History Records FoundNo Family History Records Found Advance Directives No Advanced Directives Records FoundNo Advanced Directives Records Found Additional Source Comments INFORMATION SOURCE (unrecogn ized section and content) DATE CREATED AUTHOR 05/28/2018 [facility] DATE CREATED AUTHOR AUTHOR'S KRISHNA ATIKE 08/11/2022 The [facility] FOR RECORDS PERTAINING TO PATIENTS WHO ARE OR HAVE BEEN ENROLLED IN A CHEMICAL DEPENDENCY/SUBSTANCEABUSE PROGRAM, SOME INFORMATION MAY BE OMITTED. This clinical summary was aggregated from multiple sources. Caution should be exercised in using it in the provision of clinical care. This summary normalizes information from multiple sources, and as a consequence, information in this document may materially change the coding, format and clinical context of patient data. In addition, data may be omitted in some cases. CLINICAL DECISIONS SHOULD BE BASED ON THE PRIMARY CLINICAL RECORDS. [employer] [facility]. provides no warranty or guarantee of the accuracy or completeness of information in this document.
--- NOTE | 2024-01-27 09:02 | ECG_ITS ---
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
--- NOTE | 2024-01-27 09:52 | XR_ITS ---
The [address] [address] Patient Name: LAURA TRUJILLO MRN: [id number] date: 1980 Sex: F Assigned Patient Location: SURGOUT Current Patient Location: [facility] Accession/Order Number: [id number] Exam Date: 01/27/2024 09:45 Report Date: 01/27/2024 10:03 At the request of: RICK KING Procedure: XR chest 2V EXAM: XR chest 2V HISTORY: Preop exam COMPARISON: None. TECHNIQUE: PA and lateral views of the chest. FINDINGS: The cardiomediastinal silhouette is normal. No focal consolidation is identified. There is no pneumothorax. No pleural effusion is noted. The osseous structures are intact. XR/XR chest 2V IMPRESSION: No acute cardiopulmonary process. Electronically authenticated by: SORAYA SANTOS Date: 01/27/2024 10:03
== END 2024-01-27 08:50 | disposition home or self-care (01) ==
LOC: PST 08:52
PROVIDERS: Visit Provider Obstetrics & Gynecology
DX: Z01.810 Encounter for preprocedural cardiovascular examination (principal); R10.2 Pelvic and perineal pain; N92.6 Irregular menstruation, unspecified
CPT/HCPCS: 71046; 93005

== ENCOUNTER 2024-02-16 14:21 | Outpatient (OUT) | payer OTHER, SELFPAY | END 2024-02-16 14:22 | disposition home or self-care (01) | LOC: PST 14:22 | PROVIDERS: Visit Provider Obstetrics & Gynecology | DX: Z01.818 Encounter for other preprocedural examination (principal); Z30.2 Encounter for sterilization; R10.2 Pelvic and perineal pain; N92.6 Irregular menstruation, unspecified ==

== ENCOUNTER 2024-02-19 10:57 | Day surgery (SDC) | payer OTHER, SELFPAY ==
[2024-01-27 09:39] VITALS: BP 129/84; PULSE 74; RESP 16; TEMP 36.3; O2SAT 99; BMI 45.4
[2024-02-19] VITALS (13 sets, daily range): BP systolic 120–177; BP diastolic 64–88; PULSE 75–88; RESP 13–29; TEMP 36.1; O2SAT 89–98; BMI 45.0
--- OUTSIDE RECORDS SUMMARY | 2024-02-19 11:16 | XMS_ITS | CCD ---
Author Organization [facility] Care Team Providers Care Newsroom Intern Name Role Phone Nill, Kyle R Unavailable Unavailable Nill, Kyle R Unavailable Unavailable Nill, Kyle R Unavailable Unavailable Jeoy, Irvin~[phone] UNKNOWN Unavailable Unavailable JOEY, DR BRYAN Admitting Unavailable IMSBAHY, DR BRYAN Attending Unavailable MISBAHY, DR BRYAN Primary Care Unavailable JOEY, DR BRYAN Consulting Unavailable JOEY, DR BRYAN Admitting Unavailable HOY, DR BRYAN Attending Unavailable MISBAHY, DR BRYAN Primary Care Unavailable MISBAHY, DR BRYAN Consulting Unavailable WEST, DR RALF Castillo Consulting Unavailable JOEY, DR BRYAN Admitting Unavailable JOEY, DR BRYAN Attending Unavailable JOEY, DR BRYAN Primary Care Unavailable HOY, DR BRYAN Consulting Unavailable MISBAHY, DR BRYAN Admitting Unavailable HOY, DR BRYAN Attending Unavailable JOEY, DR BRYAN Primary Care Unavailable JOEY, DR BRYAN Consulting Unavailable Allergies Allergy Classification Reported Allergen(s) Allergy Type Date of Onset Reaction(s) Facility (1 source) Latex; Translations: [Latex] Propensity to adverse reactions (disorder) [facility] Repository Problems Active Problems Problem Classification Problem [...] spec) Detected Critically abnormal NOT DETECTED The [facility] Comment on above: Result Comment: This test is not yet zoe roved or cleared by the [place] FDA. When there are no FDA-approved or cleared tests available, and other criteria are met, FDA can make tests available under an emergency access mechanism called an Emergency Use Authorization (EUA). The EUA for this test is supported by the [place] of Health and Human Service's declaration that [...] longer be used). Performed By: #### [facility] #### [facility] [address] [place] [address] Dr. Bessie Pro Covid-19 PCR ([facility])on 10-31 SARS-CoV-2 (COVID-19) RNA ANKITA+probe Ql (Unsp spec) Not detected Normal NOT DETECTED [facility] Comment on above: Result Comment: This test is not yet zoe roved or cleared by the [place] FDA. When there are no FDA-approved or cleared tests available, and other criteria are met, FDA can make tests available under an emergency access mechanism called an Emergency Use Authorization (EUA). The EUA for this test is supported by the [place] Consultant of Health and Human Service's (HHS's) declaration [...] consistent with SARS-CoV-2. Performed By: #### C [facility] #### [facility] [address] ABD/PELVIS WO CONon [...] RALF BENNETT Date: 2021-08-27 09:54 Normal [facility] Coding Summary.on 05-28-2018 Coding Summary. CODING DATE: 018 FINAL [facility] STATUS: Home (Routine DC) PAYOR: Commercial [...] PROC APC STAT DESCRIPTION DOCTOR NAME DATE 87817 2 Kyle Churchill MD 05/25/2018 phagogastroduodenoscopy, flexible, transoral; with biopsy, single or multiple [id number] T Colonoscopy, flexible; Kyle Churchill MD 05/25/2018 diagnostic, including collection of specimen(s) by brushing or washing, when performed (separate procedure) 37818 Anesthesia for combined Kyle Churchill MD 05/25/2018 [...] Deisy Robles Date Saved: 05/28/2018 02:11 pm [facility] Main OR Intraoperative Recor don 05-26-2018 Main OR Intraoperative Record IntraOp Document Type FT Summary Primary Physician: Kyle Churchill MD Finalized Date/Time: 05/26/18 12:57:13 Pt. Name: LAURA TRUJILLO/Sex: 1980 Female Med Rec #: [id number] Physician: Kyle Churchill MD Financial #: [id number] Pt. Type: O Room/Bed: / Admit/Disch: 05/25/18 [...] to review and send charges Edin Lacey STAFF CYTOTECHNOLOGIST Case Attendance FT Entry 1 Entry 2 Entry 3 Case Attendee Herbert LOCK, Amira Churchill MD, Kyle Woods RN, Venessa Shabazz Role Performed Anesthesiologist Surgeon - Primary Melter Helper - Primary Silicator Time In 05/25/18 08:02:00 05/25/18 08:02:00 05/25/18 08:02:00 Time Out 05/25/18 08:28:00 05/25/18 08:28:00 05/25/18 08:28:00 Procedure EGD AND COLONOSCOPY(.) EGD AND COLONOSCOPY(.) EGD AND COLONOSCOPY(.) Comments Dr. Bae supervising Last Modified By: Peggy PATTERSON, Venessa Woods RN, Venessa Woods RN, Venessa Shabazz 05/25/18 10:06:46 05/25/18 08:28:33 05/25/18 08:28:33 Entry 4 Entry 5 Case Attendee Gael PATTERSON, Richa Gonzales CST, Conner Braxton Role Performed Melter Helper - Primary Scrub - Primary Time In [...] Applicable) PreOp Antibiotic No Time Out Herbert CAA, Amira M, Given Participants Zhao ARGUELLO, Kyle Larry, Peggy PATTERSON, Venessa Shabazz, Gael PATTERSON, Richa Braxton, Christian HERNÁNDEZ, Conner Braxton Time [...] and tissue Entry 1 Skin Integrity Intact, [place], Warm, and Skin Abnormality No Dry Outcomes [...] Woods RN, Amira Bermudez Nill MD, Kyle aLrry Outcomes Met? Yes Last Modified By: Venessa oWods RN 05/25/18 07:05:10 Post-Care Text: The patient [...] Outcomes Met? Yes Last Modified By: Venessa Woosd RN 05/25/18 07:06:00 Post-Care Text: The patient [...] RN Patient Status Stable Skin. Condition Intact, [place], Warm, and Dry Airway Maintenance Oxygen in Use? No Outcomes Met? Yes Last Modified By: Venessa Woods RN 05/25/18 07:06:29 Post-Care Text: The patient is free from signs and symptoms of injury related to transfer/transport General Comments: Report given to INSIDE STEWARD/STEWARDESS - MARGE PATTERSONauto phone installer Administration FT Pre-Care Text: Verifies allergies, administers [...] safely administered during the perioperative period For [facility] please see scanned medication reconcilliation form [...] 05/26/18 12:15 Venessa Woods RN 05/26/18 12:57 [facility] History and Physicalon 05-25 History and Physical Patient: LAURA TRUJILLO Age: 38 years Sex: Female : 1980 Associated Diagnoses: None Author: Kyle Churchill MD Subjective no changes to H & P Normal [facility] Comment on above: Result Comment: Electronically Signed By : Kyle Churchill MD\.br\Date and Time Signed: 05/25/18 08:33 EDT Inpatient Patient Summaryon 05-25-2018 In[facility] InstructionsPERSON INFORMATION Name: LAURA TRUJILLO PHYSICIANS Admitting Physician: Kyle Churchill MD Physician: Kyle Churchill MD PCP: Hoy MD, DouglasDischarge Diagnosis: Antral gastritis Comment: PATIENT EDUCATION INFORMATIONInstructions:Medicati on Leaflets:Follow up:With: Address: When: Kyle Churchill [address] [place] [address] Business (1) Within 2 weeks MEDICATION LISTComment: [facility] Main OR PACU I Recordon 05-02 Main OR PACU I Record PACU Phase I Document Type FT Summary Primary Physician: Kyle Churchill MD Finalized Date/Time: 05/25/18 09:10:36 Pt. Name: LAURA TRUJILLO Clay Lambert/Sex: 1980 Female Med Rec #: [id number] Physician: Kyle Churchill MD Financial #: [id number] Pt. Type: O Room/Bed: / Admit/Disch: 05/25/18 [...] I Outcomes Met? Yes Last Modified By: Michael PATTERSON, Mary Alcaraz 05/25/18 09:10:26 Post-Care Text: The patient demonstrates [...] By: Mary Rodriguez RN 05/25/18 09:10 [facility] Main OR Preoperative Recordo n 05-25-2018 Main OR Preoperative Record Holding Area Document Type FT Summary Primary Physician: Kyle Churchill MD Finalized Date/Time: 05/25/18 07:18:47 Pt. Name: LAURA TRUJILLO Clay UgaldeB./Sex: 1980 Female Med Rec #: [id number] Physician: Kyle Churchill MD Financial #: [id number] Pt. Type: O Room/Bed: / Admit/Disch: 05/25/18 06:36:31 - Institution: Case Times Holding FT Pre-Care Text: Verifies consent for planned procedure, identifies individual values and wishes concerning care, includes family members in perioperative teaching Secures patient's records' belongings, and valuables, maintains patient's dignity and privacy, and maintains patient confidentiality Entry 1 In Holding 05/25/18 06:46:00 Outcomes Met? Yes Last Modified By: Carla Curry RN 05/25/18 07:01:53 Post-Care Text: The patient [...] By: Carla Curry RN 05/25/18 07:18 [facility] Operative Reporton 8 Operative Report Date of Surgery: 05/25/2018SURGEON: Kyle [...] Room in good condition.Kyle Churchill M.D.lkrDictated: 05/25/2018 #[id number]: 05/25/2018 #[id number]: Tai Courtney M.D. [facility] Comment on above: Result Comment: Electronically Signed By : Zhao ARGUELLO, Kyle Sandrabr\Date and Time Signed: 05/25/18 09:18 EDT Patient Education - Texton 0 05-25-2018 Patient Education - Text [facility] Progress Note-Physicianon Progress Note-Physician Patient: LAURA TRUJILLO [...] report . Respiratory: Adequate air exchange with zoroastrianism of preoperative function.. Cardiovascular: Cardiovascular function is stable and has returned to preoperative levels.. Neurologic: Pt has returned to preoperative baseline.. Review / Management Condition: Stable. Assessment Anesthetic outcome No anesthetic complications noted. Plan Transfer/ Discharge: Patient can be discharged from PACU when criteria met. Condition good. [facility] Comment on above: Result Comment: Electronically Signed By : Petr Bae JR, DO.joie\Date and Time Signed: 05/25/18 10:34 EDT Progress [...] Results review: No qualifying data available. Plan [place] Society of Anesthesiologists (ASA) physical status classification: Class II. Anesthetic Preoperative Plan Anesthesia: Monitored anesthesia care and general anesthesia if required.. Anesthetic plan, risks, benefits, and alternatives discussed with the patient and/or family. Pt. and/or family present and agree to proceed as planned.. Discussed the importance of abstaining from tobacco products, and offered counseling if desired.. [facility] Comment on above: Result Comment: Electronically Signed By : Petr Bae JR, DO.joie\Date and Time Signed: 05/24/18 19:59 EDT Encounters Encounter Date Encounter Type Care Provider Facility Start: 08-08-2022 End: 08-08-[address] IRVIN MARTINEZ Facility:[facility] Start: 07-17-2022 End: 07-18-[address] IRVIN MARTINEZ Facility:[facility] Start: 11-09-2021 End: 11-09-[address] IRVIN MARTINEZ Facility:[facility] Start: 08-27-2021 End: 08-28-[address] IRVIN MARTINEZ Facility:[facility] Start: 05-25-2018 End: 05-26-2018 Ambulatory Kyle Larry Zhao Facility:[facility] Payers Date Payer Category Payer Private Health Insurance 1980 Unknown [id number] [id number] [id number] 1980 Unknown [id number] 2.16.84 [id number] 1980 Unknown [id number] 2.16.84 [id number] 1980 Unknown [id number] 2.16.84 [id number] 1958 Private Health Insurance [id number] 1958 Private Health Insurance [id number] Summary Purpose Family History No Family History Records FoundNo Family History Records Found Advance Directives No Advanced Directives Records FoundNo Advanced Directives Records Found Additional Source Comments INFORMATION SOURCE (unrecogn ized section and content) DATE CREATED AUTHOR 05/28/2018 [facility] DATE CREATED AUTHOR AUTHOR'S KRISHNA ATIKE 08/11/2022 [facility]ORDS PERTAINING TO PATIENTS WHO ARE [...] BE BASED ON THE PRIMARY CLINICAL RECORDS. [facility]. provides no warranty or guarantee of the accuracy or completeness of information in this document.
[2024-02-19 11:23] LABS: Basophils Absolute Auto 0.1 10^3/uL (0.0-0.1); Basophils Percent Auto 0.5 % (0.2-2.0); Eosinophils Absolute Auto 0.2 10^3/uL (0.0-0.7); Eosinophils Percent Auto 1.3 % (0.9-7.0); Hematocrit 36.3 % (36.0-48.0); Hemoglobin 11.3 g/dL (12.0-16.0); Immature Granulocytes Abs Auto 0.09 10^3/uL (0.00-0.03); Immature Granulocytes Pct Auto 0.7 % (0.0-0.5); Lymphocytes Absolute Auto 2.4 10^3/uL (1.2-3.8); Lymphocytes Percent Auto 19.9 % (20.5-60.0); Mean Corpuscular HGB Conc 31.1 g/dL (29.9-35.2); Mean Corpuscular Hemoglobin 26.9 pg (26.7-34.0); Mean Corpuscular Volume 86.4 fL (81.0-99.0); Mean Platelet Volume 9.3 fL (9.5-13.5); Monocytes Percent Auto 8.2 % (1.7-12.0); Neutrophils Absolute Auto 8.4 10^3/uL (1.4-6.5); Neutrophils Percent Auto 69.4 % (43.0-75.0); Platelet Count 430 10^3/uL (150-450); Red Cell Distribution Width 13.9 % (11.0-15.0); White Blood Count 12.1 10^3/uL (4.0-11.0)
[2024-02-19 11:33] LABS: Glucometer 107 mg/dL (74-106)
[2024-02-19 11:39] LABS: HCG Quantitative <1 mIU/mL
[2024-02-19] MEDS: LACTATED RINGER'S SOLUTION 1,000 ML 50 ML IV ×2 (11:44→13:40)
[2024-02-19] MEDS: METOCLOPRAMIDE HCL 10 MG/2 ML VIAL IVP (12:06)
--- NOTE | 2024-02-19 14:13 | P.ON_ITS ---
Brief Operative Note Date of procedure: 02/19/24 Pre-op diagnosis: pelvic pain, menorrhagia Post-op diagnosis: other (significant abdominal adhesions of uterus to anterior abdominal wall) Procedure: NAME OF PROCEDURE: [ D&c hysteroscopy with myosure, diagnostic laparoscopy due to significant adhesions unable to perform removal of tubes] PROCEDURE: The patient was taken back to the Operating Room where she was prepped and d raped in normal sterile fashion after being placed under general anesthesia without difficulty. She was also placed in the dorsal lithotomy position. A weighted speculum was placed in the patient?s vagina. The anterior lip of the cervix was identified and grasped with a single tooth tenaculum. The patient?s uterus was then sounded roughly to [? 8] cm. The patient was then gently dilated using Hegar dilators. The hysteroscope was passed through the patient?s cervix into the uterus. Both ostia were identified. fluffy appearing endometrium. No gross evidence of malignancy, no gross evidence of polyps or fibroids. The myosure apparatus was placed through the scope, The myosure was engaged and endometrial curretting were removed along with endometrial polyp, The hyster oscope was then removed from the uterus. The endometrial curettings were sent out to pathology. The single tooth tenaculum was then removed from the patient's anterior lip of the cervix where excellent hemostasis was noted. All instruments were removed from the patient?s vagina.. A sponge stick was placed into the patient's vagina. Attention was turned to the patient's abdomen, where a small umbilical incision was made. The fascia was tented using Bhavik clamps and the fascia was entered sharply. Confirmation of intraabdominal placement of the 10 mm port was confirmed under direct visualization using a laparoscope. The patient's abdomen was then insufflated using CO2 gas with approximately 4 liters. A second port was placed left laterally, this was done under direct visualization with a 5 mm port. Survey of the patient's abdomen demonstrated normal liver and gallbladder. Survey of the patient's pelvic anatomy demonstrated normal appearing rt and lt ovary and tubes as well as normal appearing uterus. No endometrial implants could be noted, no evidence of any pelvic disease was seen, normal appearing pelvic cavity. All instruments were removed from the patient's abdomen. The patient's abdomen was deinsufflated of CO2 gas. The patient tolerated the procedure well. Sponge stick was removed from the patient's vagina. The patient's infraumbilical fascia was closed using #0 Vicryl on a GI needle. The patient's skin was closed laterally and infraumbilically using 4-0 Vicryl. The patient tolerated the procedure well. Sponge, lap and needle counts were correct x 2. The patient was taken to Recovery Room in stable condition. Anesthesia: SONIDO Surgeon: Esa Everett Prisoner Classification Interviewer: Charlene Weston Estimated blood loss (mL): 5 Pathology: other (endometrial currettings) Condition: stable Disposition: PACU Urinary Catheter Management Urinary Catheter Management Urethral: Cath placed during this visit: no
[2024-02-19] MEDS: HYDROMORPHONE HCL 0.5 MG/0.5 ML SYRINGE IV (14:38)
[2024-02-19] MEDS: HYDROCODONE/ACET 5-325 MG TABLET 1 TAB PO (15:15)
== END 2024-02-19 15:50 | disposition home or self-care (01) ==
PROVIDERS: Visit Provider Obstetrics & Gynecology
PROC: (CPT 840; 2024-02-19 12:30)
DX: N73.6 Female pelvic peritoneal adhesions (postinfective) (principal); R10.2 Pelvic and perineal pain; N92.6 Irregular menstruation, unspecified; I10 Essential (primary) hypertension; E66.01 Morbid (severe) obesity due to excess calories; Z68.42 Body mass index [BMI] 45.0-49.9, adult; F17.290 Nicotine dependence, other tobacco product, uncomplicated
CPT/HCPCS: 49320; 58558; 36415; 82948; 84702; 85025; 88305; 99999; J1094; J1170; J2704

== ENCOUNTER 2024-02-23 17:21 | Emergency (ER) | payer OTHER, SELFPAY ==
[2024-02-23 17:35] VITALS: BP 139/74; PULSE 77; RESP 16; TEMP 36.7; O2SAT 98; BMI 99.6
--- OUTSIDE RECORDS SUMMARY | 2024-02-23 17:35 | XMS_ITS | CCD ---
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 Name Role Phone Nill, Kyle R Unavailable Unavailable Nill, Kyle R Unavailable Unavailable Nill, Kyle R Unavailable Unavailable Irvin Cook~[phone] UNKNOWN Unavailable Unavailable MICHELLE, DR BRYAN Admitting Unavailable MICHELLE, DR BRYAN Attending Unavailable MICHELLE, DR BRYAN Primary Care Unavailable MICHELLE, DR BRYAN Consulting Unavailable MICHELLE, DR BRYAN Admitting Unavailable MICHELLE, DR BRYAN Attending Unavailable MICHELLE, DR BRYAN Primary Care Unavailable MICHELLE, DR BRYAN Consulting Unavailable WEST, DR RALF Castillo Consulting Unavailable MICHELLE, DR BRYAN Admitting Unavailable MICHELLE, DR BRYAN Attending Unavailable MICHELLE, DR BRYAN Primary Care Unavailable HOAdri, DR BRYAN Consulting Unavailable MICHELLE, DR BRYAN Admitting Unavailable MICHELLE, DR BRYAN Attending Unavailable MICHELLE, DR BRYAN Primary Care Unavailable MICHELLE, DR BRYAN Consulting Unavailable Esa Everett Attending Provider [phone] Esa Everett Admitting Unavailable Esa Everett Attending Unavailable Allergies Allergy Classification Reported Allergen(s) Allergy Type Date of Onset Reaction(s) Facility (1 source) Latex; Translations: [Latex] Propensity to adverse reactions (disorder) [facility] Active Problems Problem Classification [...] spec) Detected Critically abnormal NOT DETECTED [facility] Comment on above: Result Comment: This test is not yet zoe roved or cleared by the [place] FDA. When there are no FDA-approved or cleared tests available, and other criteria are met, FDA can make tests available under an emergency access mechanism called an Emergency Use Authorization (EUA). The EUA for this test is supported by the Wired Sweatband Cutter of Health and Human Service's declaration that [...] longer be used). Performed By: #### [facility] #### [facility] [address] [place] [address] Dr. Bessie Pro Covid-19 PCR (CVDTB)on 10-31 SARS-CoV-2 (COVID-19) RNA ANKITA+probe Ql (Unsp spec) Not detected Normal NOT DETECTED [facility] Comment on above: Result Comment: This test is not yet zoe roved or cleared by the [place] FDA. When there are no FDA-approved or cleared tests available, and other criteria are met, FDA can make tests available under an emergency access mechanism called an Emergency Use Authorization (EUA). The EUA for this test is supported by the Wired Sweatband Cutter of Health and Human Service's (HHS's) declaration [...] consistent with SARS-CoV-2. Performed By: #### [facility] #### [facility] [address] [place] [address] ABD/PELVIS WO CONon [...] RALF BENNETT Date: 2021-08-27 09:54 Normal [facility] Coding Summary.on 05-28-2018 Coding Summary. CODING DATE: 018 FINAL [facility] [place] STATUS: Home (Routine DC) PAYOR: Commercial Insurance [...] PROC APC STAT DESCRIPTION DOCTOR NAME DATE [id number] Kyle Churchill MD 05/25/2018 phagogastroduodenoscopy, flexible, transoral; with biopsy, single or multiple [id number] T Colonoscopy, flexible; Kyle Churchill MD 05/25/2018 diagnostic, including collection of specimen(s) by brushing or washing, when performed (separate procedure) [id number] Anesthesia for combined Kyle Churchill MD 05/25/2018 [...] Deisy Robles Date Saved: 05/28/2018 02:11 pm [facility] Main OR Intraoperative Recor don 05-26-2018 Main OR Intraoperative Record IntraOp Document Type FT Summary Primary Physician: Kyle Churchill MD Finalized Date/Time: 05/26/18 12:57:13 Pt. Name: LAURA TRUJILLO/Sex: 1980 Female Med Rec #: [id number] Physician: Kyle Churchill MD Financial #: [id number] Pt. Type: O Room/Bed: / Admit/Disch: 05/25/18 [...] to review and send charges Edin Lacey CST Case Attendance FT Entry 1 Entry 2 Entry 3 Case Attendee Herbert LOCK, Amira Churchill MD, Kyle Woods RN, Venessa Shabazz Role Performed Anesthesiologist Surgeon - Primary Licensed Esthetician - Primary Senior Java Software Developer Time In 05/25/18 08:02:00 05/25/18 08:02:00 05/25/18 [...] Richa Gonzales CST, Conner Braxton Role Performed Licensed Esthetician - Primary Scrub - Primary Time In 05/25/18 08:02:00 05/25/18 08:02:00 Time Out 05/25/18 08:28:00 05/25/18 08:28:00 Procedure EGD AND COLONOSCOPY(.) EGD AND COLONOSCOPY(.) Comments Last Modified By: Peggy RN, Venessa Woods RN, Venessa Shabazz 05/25/18 08:28:33 05/25/18 08:28:33 General Comments: Dr. [...] Peggy PATTERSON, Venessa Shabazz, Gael RN, Richa M, Christian INSEAM LEVELER, Conner M Time Out Complete 05/25/18 08:05:00 Outcomes Met? [...] and tissue Entry 1 Skin Integrity Intact, [place], Warm, and Skin Abnormality No Dry Outcomes [...] Points Checked Yes By Venessa Woods RN, Herbert LOCK, Zhao Harris MD, Kyle Larry Outcomes Met? Yes Last [...] RN Patient Status Stable Skin. Condition Intact, [place], Warm, and Dry Airway Maintenance Oxygen in Use? No Outcomes Met? Yes Last Modified By: Venessa Woods RN 05/25/18 07:06:29 Post-Care Text: The patient is free from signs and symptoms of injury related to transfer/transport General Comments: Report given to BIOMASS POWER PLANT SUPERINTENDENT - MARGE PATTERSONemail production consultant Administration FT Pre-Care Text: Verifies allergies, administers [...] safely administered during the perioperative period For [facility] please see scanned medication reconcilliation form [...] 05/26/18 12:15 Venessa Woods RN 05/26/18 12:57 Normal [facility] History and Physicalon 05-25 History and Physical Patient: LAURA TRUJILLO MRN: [id number] Age: 38 years Sex: Female : 1980 Associated Diagnoses: None Author: Kyle Churchill MD Subjective no changes to H & P Normal [facility] Comment on above: Result Comment: Electronically Signed By : Kyle Churchill MD\.br\Date and Time Signed: 05/25/18 08:33 EDT Inpatient Patient Summaryon 05-25-2018 [facility] Inst[facility] INFORMATION Name: LAURA TRUJILLO PHYSICIANS Admitting Physician: Kyle Churchill MD Physician: Kyle Churchill MD PCP: Alber Coko MD Diagnosis: Antral gastritis Comment: PATIENT EDUCATION INFORMATIONInstructions:Medicati on Leaflets:Follow up:With: Address: When: Kyle Churchill [address] [place] [id number] Business (1) Within 2 weeks MEDICATION LISTComment: [facility] Main OR PACU I Recordon 05-02 Main OR PACU I Record PACU Phase I Document Type FT Summary Primary Physician: Kyle Churchill MD Finalized Date/Time: 05/25/18 09:10:36 Pt. Name: HUGO Lex Lambert/Sex: 1980 Female Med Rec #: [id number] Physician: Kyle Churchill MD Financial #: [id number] Pt. Type: O Room/Bed: / Admit/Disch: 05/25/18 [...] By: Mary Rodriguez RN 05/25/18 09:10 Normal [facility] Main OR Preoperative Recordo n 05-25-2018 Main OR Preoperative Record Holding Area Document Type FT Summary Primary Physician: Kyle Churchill MD Finalized Date/Time: 05/25/18 07:18:47 Pt. Name: LAURA TRUJILLO Clay Lambert/Sex: 1980 Female Med Rec #: [id number] Physician: Kyle Churchill MD Financial #: [id number] Pt. Type: O Room/Bed: / Admit/Disch: 05/25/18 [...] By: Carla Curry RN 05/25/18 07:18 Normal [facility] Operative Reporton 8 Operative Report [...] Room in good condition.Kyle Churchill M.D.lkrDictated: 05/25/2018 #[id number]: 05/25/2018 #[id number]: Tai Courtney M.D. [facility] Comment on above: Result Comment: Electronically Signed By : Zhao ARGUELLO, Kyle Rice.br\Date and Time Signed: 05/25/18 09:18 EDT Patient Education - Texton 0 05-25-2018 Patient Education - Text [facility] Progress Note-Physicianon Progress Note-Physician Patient: LAURA [...] report . Respiratory: Adequate air exchange with sikh of preoperative function.. Cardiovascular: Cardiovascular function is stable and has returned to preoperative levels.. Neurologic: Pt has returned to preoperative baseline.. Review / Management Condition: Stable. Assessment Anesthetic outcome No anesthetic complications noted. Plan Transfer/ Discharge: Patient can be discharged from PACU when criteria met. Condition good. Normal [facility] Comment on above: Result Comment: [...] Results review: No qualifying data available. Plan [place] [employer] of Anesthesiologists (ASA) physical status classification: Class II. Anesthetic Preoperative Plan Anesthesia: Monitored anesthesia care and general anesthesia if required.. Anesthetic plan, risks, benefits, and alternatives discussed with the patient and/or family. Pt. and/or family present and agree to proceed as planned.. Discussed the importance of abstaining from tobacco products, and offered counseling if desired.. Normal [facility] Comment on above: Result Comment: Electronically Signed By : Petr Bae JR, DO.br\Date and Time Signed: 05/24/18 19:59 EDT Encounters Encounter Date Encounter Type Care Provider Facility Start: 02-20-2024 End: 02-20-2024 ambulatory Esa Everett Facility:[facility] Start: 02-20-2024 End: 02-20-2024 ambulatory Esa Javiero Work Phone: [facility] Work Phone: Start: 02-20-2024 End: 02-20-2024 Departed Referred Esa Everett Work Phone: [facility] Start: 08-08-2022 End: 08-08-[address] IRVIN COOK Facility:[facility] Start: 07-17-2022 End: 07-18-[address] IRVIN COOK Facility:[facility] Start: 11-09-2021 End: 11-09-[address] IRVIN COOK Facility:[facility] Start: 08-27-2021 End: 08-28-[address] IRVIN COOK Facility:[facility] Start: 05-25-2018 End: 05-26-2018 Ambulatory Kyle Churchill Facility:[facility] Payers Date Payer Category Payer Self-pay 2018 Private Health Insurance 1980 Unknown [id number] [id number] [id number] 1980 Unknown [id number] [id number] 1980 Unknown [id number] [id number] [id number] 1980 Unknown [id number] [id number] [id number] 1958 Private Health Insurance [id number] 1958 Private Health Insurance [id number] Unknown [id number] 2.16.8 [id number] Social History Date Type Detail [facility] Work Phone: Start: 1980 Sex Assigned At Female [facility] Evaluation note Note Date & Type Note Facility Evaluation note No assessment information availa ble [facility] Work Phone: Summary Purpose Family History No Family History Records FoundNo Family History Records FoundNo Family History Records Found Advance Directives No Advanced Directives Records Found Advance Directive Response Recorded Date/ Time Advance Directives No February 19 1:14pm Additional Source Comments INFORMATION SOURCE (unrecogn ized section and content) DATE CREATED AUTHOR 05/28/2018 [place] DATE CREATED AUTHOR AUTHOR'S ORGANIZ ATION 08/11/2022 [facility] DATE CREATED AUTHOR AUTHOR'S ORGANIZ ATION 02/22/2024 [facility] Care Teams (unrecognized sec tion and content) Team Status: Inactive Member Role Status Dates Esa Everett Attending Provider Active Start: [facility] 2023 End: February 20, 2024 Goals (unrecognized section and content) Goals may be documented in a n alternate section FOR RECORDS PERTAINING TO PATIENTS WHO ARE [...] BE BASED ON THE PRIMARY CLINICAL RECORDS. [facility] [employer] provides no warranty or guarantee of the accuracy or completeness of information in this document.
--- NOTE | 2024-02-23 17:57 | ED_ITS ---
HPI - General Adult General Chief complaint: Urogenital-Female Stated complaint: Flu Like Symptoms Time Seen by Provider: 02/23/24 17:48 Source: patient Mode of arrival: walk-in Limitations: no limitations History of Present Illness HPI narrative: 43-year-old female presents for nasal congestion and bodyaches. She has not had a cough. The symptoms began yesterday. No vomiting or diarrhea. She is postop day #4 from the laparoscopy. She states her temperature was 100.5 degrees at home. Related Data Home Medications ?Medication ?Instructions ?Recorded ?Confirmed diltiazem HCl 180 mg capsule,24 180 mg PO QPM 01/27/24 02/23/24 hr,extended release lisinopril 20 mg tablet 20 mg PO QPM 01/27/24 02/23/24 metformin 500 mg tablet,extended 500 mg PO DAILY 01/27/24 02/23/24 release 24 hr Previous Rx's ?Medication ?Instructions ?Recorded hydrocodone 5 mg-acetaminophen 325 1 tab PO Q4H PRN pain 4 days #16 02/19/24 mg tablet tabs ibuprofen 800 mg tablet 800 mg PO Q8H PRN pain 14 days #40 02/19/24 tabs Allergies Allergy/AdvReac Type Severity Reaction Status Date / Time adhesive tape Allergy blistering Verified 02/23/24 17:33 latex Allergy Rash Verified 02/23/24 17:33 simvastatin Allergy body aches Verified 02/23/24 17:33 Review of Systems ROS Narrative A ten point review of systems is negative except as noted above. [facility] Medical History (Updated 02/23/24 @ 18:41 by Khris Womack MD) Methylenetetrahydrofolate reductase (MTHFR) deficiency ?E72.12 - Methylenetetrahydrofolate reductase deficiency (ICD-10) Thrombophilia ?D68.59 - Other primary thrombophilia (ICD-10) Hernia ?K46.9 - Unspecified abdominal hernia without obstruction or gangrene (ICD- 10) Irregular periods/menstrual cycles ?N92.6 - Irregular menstruation, unspecified (ICD-10) Request for sterilization ?Z30.2 - Encounter for sterilization (ICD-10) Pelvic pain ?R10.2 - Pelvic and perineal pain (ICD-10) MTHFR gene mutation ?Z15.89 - Genetic susceptibility to other disease (ICD-10) Panic attacks ?F41.0 - Panic disorder [episodic paroxysmal anxiety] (ICD-10) Depression ?F32.A - Depression, unspecified (ICD-10) Anxiety ?F41.9 - Anxiety disorder, unspecified (ICD-10) COVID-19 (11/09/23) ?U07.1 - COVID-19 (ICD-10) Electronic cigarette use ?Z78.9 - Other specified health status (ICD-10) Pneumonia ?J18.9 - Pneumonia, unspecified organism (ICD-10) Migraine ?G43.909 - Migraine, unspecified, not intractable, without status migrainosus (ICD-10) IBS (irritable bowel syndrome) ?K58.9 - Irritable bowel syndrome without diarrhea (ICD-10) Heartburn ?R12 - Heartburn (ICD-10) GERD (gastroesophageal reflux disease) ?K21.9 - Gastro-esophageal reflux disease without esophagitis (ICD-10) Anemia ?D64.9 - Anemia, unspecified (ICD-10) PVC's (premature ventricular contractions) ?I49.3 - Ventricular premature depolarization (ICD-10) High cholesterol ?E78.00 - Pure hypercholesterolemia, unspecified (ICD-10) Hypertension ?I10 - Essential (primary) hypertension (ICD-10) Metabolic syndrome ?E88.810 - Metabolic syndrome (ICD-10) PCOS (polycystic ovarian syndrome) ?E28.2 - Polycystic ovarian syndrome (ICD-10) Elevated hemoglobin A1c ?R73.09 - Other abnormal glucose (ICD-10) Ovarian cyst ?N83.209 - Unspecified ovarian cyst, unspecified side (ICD-10) Surgical History (Updated 02/16/24 @ 11:07 by Dina Guevara) History of esophagogastroduodenoscopy (EGD) ?Z98.890 - Other specified postprocedural states (ICD-10) History of colonoscopy ?Z98.890 - Other specified postprocedural states (ICD-10) History of wisdom tooth extraction ?K08.409 - Partial loss of teeth, unspecified cause, unspecified class (ICD- 10) History of arthroscopy of knee ?Z98.890 - Other specified postprocedural states (ICD-10) History of laparoscopy ?Z98.890 - Other specified postprocedural states (ICD-10) History of dilation and curettage ?Z98.890 - Other specified postprocedural states (ICD-10) History of section ?Z98.891 - History of uterine scar from previous surgery (ICD-10) History of tubal ligation ?Z98.51 - Tubal ligation status (ICD-10) Family History (Updated 01/27/24 @ 09:26 by Josselin Shannon NP) Other Family history of colon cancer Family history of diabetes mellitus Family history of heart disease Family history of hypertension Family history of stroke Heart failure Liver failure Social History (Updated 01/27/24 @ 09:17 by Josselin Shannon NP) Within the past year, how often did you have a drink containing alcohol: monthly or less Do you use any of these nicotine containing products: vaping products Non-prescribed substance use: denies use Previous occupational history: [employer] Highest level of school completed/degree received: high school graduate Exam Narrative Exam Narrative: Nurses note and vital signs reviewed and patient is not hypoxic. General: The patient appears well and in no apparent distress. Patient is resting comfortably on cart. Skin: Warm, dry, no pallor noted. There is no rash noted. Head: Normocephalic, atraumatic Eye: Normal conjunctiva, no drainage Ears, Nose, Mouth, and Throat: oral mucosa is moist. Nasal congestion present Cardiovascular: Regular Rate and Rhythm Respiratory: Patient is in no distress, no accessory muscle use, lungs are clear to auscultation, no wheezing, rales or rhonchi Back: non-tender GI: no tenderness to palpation, no masses appreciated. No rebound, guarding, or rigidity noted. Laparoscopy site healing well. Musculoskeletal: The patient has no evidence of calf tenderness, no pitting edema, symmetrical pulses noted bilaterally Neurological: A&O, normal speech Psychiatric: Cooperative Constitutional Vital Signs, click to edit/add: Last Vital Signs Temp 98.1 F 02/23/24 17:35 Pulse 77 02/23/24 17:35 Resp 16 02/23/24 17:35 BP 139/74 02/23/24 17:35 Pulse Ox 98 02/23/24 17:35 O2 Del Method Room Air 02/23/24 17:35 Course Vital Signs Vital signs: Vital Signs Temperature 98.1 F 02/23/24 17:35 Pulse Rate 77 02/23/24 17:35 Respiratory Rate 16 02/23/24 17:35 Blood Pressure 139/74 02/23/24 17:35 Pulse Oximetry 98 02/23/24 17:35 Oxygen Delivery Method Room Air 02/23/24 17:35 Temperature 98.1 F 02/23/24 17:35 Pulse Rate 77 02/23/24 17:35 Respiratory Rate 16 02/23/24 17:35 Blood Pressure 139/74 02/23/24 17:35 Pulse Oximetry 98 02/23/24 17:35 Oxygen Delivery Method Room Air 02/23/24 17:35 Medical Decision Making MDM Narrative Medical decision making narrative: Test is positive for COVID and she was positive in the middle of January. Other tests are pending and the patient is signed out to Dr. Toussaint at change of shift Differential Diagnosis Differential Diagnosis: COVID, influenza, UTI Lab Data Lab results reviewed: Yes I reviewed the patient's lab results Labs: Lab Results 02/23/24 02/23/24 Range/Units 17:50 18:04 WBC 8.9 (4.0-11.0) 10^3/uL RBC 4.33 (4.20-5.40) 10^6/uL Hgb 11.7 L (12.0-16.0) g/dL Hct 37.1 (36.0-48.0) % MCV 85.7 (81.0-99.0) fL MCH 27.0 (26.7-34.0) pg MCHC 31.5 (29.9-35.2) g/dL RDW 13.9 (11.0-15.0) % Plt Count 400 (150-450) 10^3/uL MPV 9.2 L (9.5-13.5) fL Neut % (Auto) 66.8 (43.0-75.0) % Lymph % (Auto) 16.9 L (20.5-60.0) % Mcculloch % (Auto) 13.0 H (1.7-12.0) % Eos % (Auto) 1.1 (0.9-7.0) % Baso % (Auto) 0.6 (0.2-2.0) % Neut # (Auto) 5.9 (1.4-6.5) 10^3/uL Lymph # (Auto) 1.5 (1.2-3.8) 10^3/uL M[place]ulloch # (Auto) 1.2 H (0.3-0.8) 10^3/uL Eos # (Auto) 0.1 (0.0-0.7) 10^3/uL Baso # (Auto) 0.1 (0.0-0.1) 10^3/uL Abs Immat Gran (auto) 0.14 H (0.00-0.03) 10^3/uL Imm/Tot Granulo (auto) 1.6 H (0.0-0.5) % Sodium 136 (136-145) mmol/L Potassium 3.7 (3.5-5.1) mmol/L Chloride 100 (98-107) mmol/L Carbon Dioxide 27.0 (21.0-32.0) mmol/L Anion Gap 12.7 BUN 11.0 (7.0-18.0) mg/dL Creatinine 0.73 (0.55-1.02) mg/dL Est GFR ( Amer) >60 (>=60) Est GFR (Non-Af Amer) >60 (>=60) BUN/Creatinine Ratio 15.1 Glucose 120 H (74-106) mg/dL Calcium 9.2 (8.5-10.1) mg/dL SARS-CoV-2 Ag (CV2AG) Positive A (NEGATIVE) Discharge Plan Discharge Patient Disposition: Still a Patient
[2024-02-23 18:17] LABS: Basophils Absolute Auto 0.1 10^3/uL (0.0-0.1); Basophils Percent Auto 0.6 % (0.2-2.0); Eosinophils Absolute Auto 0.1 10^3/uL (0.0-0.7); Eosinophils Percent Auto 1.1 % (0.9-7.0); Hematocrit 37.1 % (36.0-48.0); Hemoglobin 11.7 g/dL (12.0-16.0); Immature Granulocytes Abs Auto 0.14 10^3/uL (0.00-0.03); Immature Granulocytes Pct Auto 1.6 % (0.0-0.5); Lymphocytes Absolute Auto 1.5 10^3/uL (1.2-3.8); Lymphocytes Percent Auto 16.9 % (20.5-60.0); Mean Corpuscular HGB Conc 31.5 g/dL (29.9-35.2); Mean Corpuscular Volume 85.7 fL (81.0-99.0); Mean Platelet Volume 9.2 fL (9.5-13.5); Monocytes Absolute Auto 1.2 10^3/uL (0.3-0.8); Neutrophils Absolute Auto 5.9 10^3/uL (1.4-6.5); Neutrophils Percent Auto 66.8 % (43.0-75.0); Platelet Count 400 10^3/uL (150-450); Red Blood Count 4.33 10^6/uL (4.20-5.40); Red Cell Distribution Width 13.9 % (11.0-15.0); White Blood Count 8.9 10^3/uL (4.0-11.0)
[2024-02-23 18:25] LABS: Anion Gap 12.7; BUN Creatinine Ratio 15.1; Calcium 9.2 mg/dL (8.5-10.1); Chloride 100 mmol/L (98-107); Estimated GFR (African America >60 (>=60); Estimated GFR (Non-African Ame >60 (>=60); Glucose 120 mg/dL (74-106); Potassium 3.7 mmol/L (3.5-5.1); Sodium 136 mmol/L (136-145)
[2024-02-23 18:28] LABS: SARS-CoV-2 Ag POSITIVE (NEGATIVE)
[2024-02-23 19:28] LABS: Bilirubin Urine NEGATIVE (NEGATIVE); Blood Urine MODERATE (NEGATIVE); Clarity Urine CLEAR (CLEAR); Color Urine YELLOW (YELLOW); Glucose Urine UA NEGATIVE (NEGATIVE); Ketones Urine NEGATIVE (NEGATIVE); Leukocyte Esterase Urine NEGATIVE (NEGATIVE); Nitrite Urine NEGATIVE (NEGATIVE); Protein Urine NEGATIVE (NEG/TRACE); Specific Gravity Urine 1.025 (1.005-1.025); Urobilinogen Urine 0.2 EU/dL (0.2-1.0)
[2024-02-23 19:34] LABS: Bacteria Urine SMALL #/HPF (NONE SEEN); Mucus Urine TRACE (NONE SEEN); RBC Urine 0-2 #/HPF (0-2)
[2024-02-23 19:35] LABS: Cast Seen? NONE SEEN #/LPF (NONE SEEN); Crystals Seen? None Seen #/HPF (None Seen); Squamous Epithelial Cell Urine MODERATE #/LPF (NONE/RARE); Urine Culture Indicated YES
[2024-02-23 19:36] LABS: Influenza Virus A Antigen Negative; Influenza Virus B Antigen Negative; Internal Control Within Normal Limits
[2024-02-23 20:20] VITALS: BP 138/89; PULSE 88; RESP 20; O2SAT 99
== END 2024-02-23 20:20 | disposition home or self-care (01) ==
PROVIDERS: Emergency Medicine; Emergency Provider Internal Medicine
DX: U07.1 COVID-19 (principal); E72.12 Methylenetetrahydrofolate reductase deficiency; F32.A Depression, unspecified; F41.9 Anxiety disorder, unspecified; D68.59 Other primary thrombophilia; K58.9 Irritable bowel syndrome, unspecified; K21.9 Gastro-esophageal reflux disease without esophagitis; E78.00 Pure hypercholesterolemia, unspecified; I10 Essential (primary) hypertension; E88.810 Metabolic syndrome; E28.2 Polycystic ovarian syndrome; Z98.890 Other specified postprocedural states; Z98.51 Tubal ligation status; F17.290 Nicotine dependence, other tobacco product, uncomplicated; Z87.01 Personal history of pneumonia (recurrent); Z79.899 Other long term (current) drug therapy; Z79.84 Long term (current) use of oral hypoglycemic drugs
CPT/HCPCS: 36415; 80048; 81001; 85025; 87086; 87804; 87811; 99283

== ENCOUNTER 2024-04-08 10:08 | Outpatient (OUT) | payer OTHER, SELFPAY ==
[2024-04-08 10:38] LABS: Basophils Percent Auto 0.5 % (0.2-2.0); Eosinophils Absolute Auto 0.1 10^3/uL (0.0-0.7); Eosinophils Percent Auto 1.3 % (0.9-7.0); Hematocrit 37.8 % (36.0-48.0); Hemoglobin 11.8 g/dL (12.0-16.0); Immature Granulocytes Abs Auto 0.06 10^3/uL (0.00-0.03); Immature Granulocytes Pct Auto 0.7 % (0.0-0.5); Lymphocytes Absolute Auto 2.6 10^3/uL (1.2-3.8); Lymphocytes Percent Auto 31.3 % (20.5-60.0); Mean Corpuscular HGB Conc 31.2 g/dL (29.9-35.2); Mean Corpuscular Hemoglobin 26.5 pg (26.7-34.0); Mean Corpuscular Volume 84.9 fL (81.0-99.0); Mean Platelet Volume 9.3 fL (9.5-13.5); Monocytes Absolute Auto 0.9 10^3/uL (0.3-0.8); Monocytes Percent Auto 10.2 % (1.7-12.0); Neutrophils Absolute Auto 4.7 10^3/uL (1.4-6.5); Platelet Count 418 10^3/uL (150-450); Red Blood Count 4.45 10^6/uL (4.20-5.40); Red Cell Distribution Width 13.6 % (11.0-15.0); White Blood Count 8.4 10^3/uL (4.0-11.0)
[2024-04-08 11:42] LABS: Estimated Average Glucose 131 mg/dL; Glycohemoglobin A1C 6.2 % (4.5-6.2)
[2024-04-08 11:48] LABS: Free T4 1.09 ng/dL (0.76-1.46)
[2024-04-08 11:50] LABS: Alanine Aminotransferase 69 U/L (14-59); Albumin Globulin Ratio 0.8; Albumin Level 3.6 g/dL (3.4-5.0); Alkaline Phosphatase 119 U/L (46-116); Anion Gap 13.5; Aspartate Amino Transferase 42 U/L (15-37); BUN Creatinine Ratio 15.6; Bilirubin Total 0.3 mg/dL (0.2-1.0); Calcium 9.4 mg/dL (8.5-10.1); Carbon Dioxide 27.5 mmol/L (21.0-32.0); Chloride 102 mmol/L (98-107); Estimated GFR (African America >60 (>=60); Estimated GFR (Non-African Ame >60 (>=60); Globulin 4.4 g/dL; Glucose 101 mg/dL (74-106); Sodium 139 mmol/L (136-145); Thyroid Stimulating Hormone 2.099 uIU/mL (0.358-3.740)
--- NOTE | 2024-04-08 18:46 | US_ITS ---
[facility] [place] [id number] Patient Name: LAURA TRUJILLO MRN: [id number] date: 1980 Sex: F Assigned Patient Location: LAB Current Patient Location: Accession/Order Number: [id number] Exam Date: 04/08/2024 19:40 Report Date: 04/09/2024 06:08 At the request of: IRVIN MARTINEZ Procedure: US venous doppler LE BI EXAMINATION: US venous doppler LE BI HISTORY: EDEMA R60.9 ; bilateral lower extremity edema COMPARISON: No relevant comparison available. FINDINGS: REGION: Bilateral extremities THROMBI: None. COMPRESSIBILITY: Normal compressibility. FLOW: Normal waveform and antegrade flow between 5 and 20 cm/s. OTHER: None. US/US venous doppler LE BI IMPRESSION: 1. No deep vein thrombus within the right or left lower extremity. Electronically authenticated by: BRIDGETTE PICKERING Date: 04/09/2024 06:08
== END 2024-04-08 10:09 | disposition home or self-care (01) ==
LOC: LAB 10:11
PROVIDERS: PCP Family Medicine; Visit Provider Family Medicine
DX: R60.9 Edema, unspecified (principal); I50.30 Unspecified diastolic (congestive) heart failure; R73.09 Other abnormal glucose; I11.0 Hypertensive heart disease with heart failure
CPT/HCPCS: 36415; 80053; 83036; 83880; 84439; 84443; 85025; 93970

== ENCOUNTER 2024-04-13 06:40 | Outpatient (OUT) | payer OTHER, SELFPAY ==
--- OUTSIDE RECORDS SUMMARY | 2024-04-13 06:42 | XMS_ITS | CCD ---
Author Organization [facility] Care Team Providers Care Devulcanizer Head Name Role Phone Nill, Kyle R Unavailable Unavailable Nill, Kyle R Unavailable Unavailable Nill, Kyle R Unavailable Unavailable Irvin Cook~[phone] UNKNOWN Unavailable Unavailable MICHELLE, DR BRYAN Admitting [...] Unavailable MICHELLE, DR BRYAN Primary Care Unavailable MICHLELE, DR BRYAN Consulting Unavailable Esa Everett Attending Provider [phone] Esa Everett Attending Unavailable Esa Everett Admitting Unavailable Allergies Allergy Classification Reported Allergen(s) Allergy Type Date of Onset Reaction(s) Facility (1 source) Latex; Translations: [Latex] Propensity to adverse reactions [facility]dis[facility] Active Problems Problem Classification [...] Test Name Value Interpretation Reference Range Facility [facility] 02-19-2024 L Specimen: [id number] eceived: 02/20/24 Status: SASHA Frairekeara Num: [id number] Spec Type: Surgical Subm Dr: Esa Everett Tissues: A Endometrium - Curettings (EMC) Procedures: HE/2, Gross/Micro L4 Age/ Patient Sex Location Account Attending Physician Laura Arias 43/F LABELL [id number] Esa Everett SPEC NUM: [id number] RECD: 02/20/24 STATUS: SASHA FRAIREKeara NUM: [id number] FELIPE: 02/19/[address]: Esa Everett ENTERED: 02/20/241340 OT DR: Bianca,Lab SPEC TYPE: Surgical DEPT: HERNANDEZ HINDS ORDERED: HE/2, Gross/Micro L4 ORDERED: HE/2, Gross/Micro L4 Pathological Diagnosis Endometrium, Curettage:?Proliferative Endometrium. Clinical Information Request for sterilization, pelvic pain, irregular periods Gross Description Received in formalin labeled with the patient's name, date of and endometrial curettings is a 2.7 x 2.0 x 0.4 cm aggregate of johnson-red tissue. Entirely submitted in one cassette labeled A1. CPT Codes 13504 Specimen: [id number] Received: 02/20/24-133 Status: SASHA Baker Num: [id number] Spec Type: Surgical Subm Dr: Esa Everett Tissues: A Endometrium - Curettings (EMC) Procedures: HE/2, Gross/Micro L4 Patient: Laura Arias [id number] (Continued) Signed (signature on file) Mary Michaels MD 02/23/24 1330 [facility] Covid-19 PCR ([facility])on SARS-CoV-2 (COVID-19) RNA ANKITA+probe Ql (Unsp spec) Detected Critically abnormal NOT DETECTED [facility] Comment on above: Result Comment: This test is not yet zoe roved or cleared by the [place] FDA. When there are no FDA-approved or cleared tests available, and other criteria are met, FDA can make tests available under an emergency access mechanism called an Emergency Use Authorization (EUA). The EUA for this test is supported by the [place] of Health and Human Service's declaration that [...] longer be used). Performed By: #### C VDTB #### [facility] [address] [place] [address] Dr. Bessie Pro Covid-19 PCR ([facility])on 10-31 SARS-CoV-2 (COVID-19) RNA ANKITA+probe Ql (Unsp spec) Not detected Normal NOT DETECTED [facility] Comment on above: Result Comment: This test is not yet zoe roved or cleared by the [place] FDA. When there are no FDA-approved or cleared tests available, and other criteria are met, FDA can make tests available under an emergency access mechanism called an Emergency Use Authorization (EUA). The EUA for this test is supported by the [place] of Health and Human Service's (HHS's) declaration [...] consistent with SARS-CoV-2. Performed By: #### C VDTB #### [facility] [address] [place] [id number] ABD/PELVIS WO CONon [...] by: RALF BENNETT Date: 2021-08-27 09:[address] [facility] Coding Summary.on 05-28-2018 Coding Summary. CODING DATE: 018 FINAL [facility] STATUS: Home (Routine DC) PAYOR: [...] PROC APC STAT DESCRIPTION DOCTOR NAME DATE [id number] Kyle Churchill MD 05/25/2018 phagogastroduodenoscopy, flexible, transoral; with biopsy, single or multiple [id number] T Colonoscopy, flexible; Kyle Churchill MD 05/25/2018 diagnostic, including collection of specimen(s) by brushing or washing, when performed (separate procedure) 92124 Anesthesia for combined Kyle Churchill MD 05/25/2018 [...] Robles Date Saved: 05/28/2018 02:11 pm Normal [facility] Main OR Intraoperative Recor don 05-26-2018 Main OR Intraoperative Record IntraOp Document Type FT Summary Primary Physician: Kyle Churchill MD Finalized Date/Time: 05/26/18 12:57:13 Pt. Name: HUGO L /Sex: 1980 Female Med Rec #: [id number] Physician: Kyle Churchill MD Financial #: [id number] Pt. Type: O Room/Bed: / Admit/Disch: 05/25/18 [...] to review and send charges Edin Lacey SENIOR EDITOR Case Attendance FT Entry 1 Entry 2 Entry 3 Case Attendee Amira Bermudez MD, Kyle Woods RN, Venessa Shabazz Role Performed Anesthesiologist Surgeon - Primary College And Career Counselor - Primary Interpretative Dancer Time In 05/25/18 08:02:00 05/25/18 08:02:00 05/25/18 [...] Richa Gonzales CST, Conner Braxton Role Performed College And Career Counselor - Primary Scrub - Primary Time In 05/25/18 08:02:00 05/25/18 08:02:00 Time Out 05/25/18 08:28:00 05/25/18 08:28:00 Procedure EGD AND COLONOSCOPY(.) EGD AND COLONOSCOPY(.) Comments Last Modified By: Peggy PATTERSON, Venessa Woods RN, Venessa Shabazz 05/25/18 08:28:33 [...] (If Applicable) PreOp Antibiotic No Time Out Amira Bermudez, Given Jared Churchill MD, Peggy Spencer RN, Gael Crystal RN, Christian Pearson CST, Conner Braxton Time Out Complete 05/25/18 08:05:00 [...] and tissue Entry 1 Skin Integrity Intact, [place], Warm, and Skin Abnormality No Dry Outcomes [...] Points Checked Yes By Venessa Woods RN, Moses CAA, Nicole M, Nill MD, Michael R Outcomes Met? Yes Last Modified By: Venessa [...] caused by extraneous objects Transport To OR FT Pre-Care Text: Transports according to individual needs. [...] injury related to transfer/transport Departure From OR FT Pre-Care Text: Transports according to individual needs. Evaluates for signs and symptoms of skin and tissue injury as a result of transfer or transport. Entry 1 Via Cart Safety Precautions Side Rails Up PostOp Destination PACU Transported By Venessa Woods RN Patient Status Stable Skin. Condition Intact, [place], Warm, and Dry Airway Maintenance Oxygen in Use? No Outcomes Met? Yes Last Modified By: Venessa Woods RN 05/25/18 07:06:29 Post-Care Text: The patient is free from signs and symptoms of injury related to transfer/transport General Comments: Report given to COTTON INSPECTOR Mason BIRD RNoptometry doctor Administration FT Pre-Care Text: Verifies allergies, administers [...] safely administered during the perioperative period For [place] please see scanned medication reconcilliation form for [...] Signed By: Venessa Woods RN 05/25/18 08:31 Vicki BETTYNormaPetra 05/26/18 12:15 Venessa Woods RN 05/26/18 12:57 [facility] History and Physicalon 05-25 History and Physical Patient: LAURA ARIAS Age: 38 years Sex: Female : 1980 Associated Diagnoses: None Author: Kyle Churchill MD Subjective no changes to [facility] & P [facility] Comment on above: Result Comment: Electronically Signed By : Kyle Churchill MD\.br\Date and Time Signed: 05/25/18 08:33 EDT Inpatient Patient Summaryon 05-25-2018 Inpatient [facility] InstructionsPERSON INFORMATION Name: LAURA ARIAS PHYSICIANS Admitting Physician: Kyle Churchill MD Physician: Kyle Churchill MD PCP: Alber Cook MD Diagnosis: Antral gastritis Comment: PATIENT EDUCATION INFORMATIONInstructions:Medicati on Leaflets:Follow up:With: Address: When: [place] [address] [facility] (1) Within 2 weeks MEDICATION LISTComment: [facility] Main OR PACU I Recordon 05-02 Main OR PACU I Record PACU Phase I Document Type FT Summary Primary Physician: Kyle Churchill MD Finalized Date/Time: 05/25/18 09:10:36 Pt. Name: LAURA ARIAS /Sex: 1980 Female Med Rec #: [id number] Physician: Kyle Churchill MD Financial #: [id number] Pt. Type: O Room/Bed: / Admit/Disch: 05/25/18 [...] By: Mary Rodriguez RN 05/25/18 09:10 Normal [facility] Main OR Preoperative Recordo n 05-25-2018 Main OR Preoperative Record Holding Area Document Type FT Summary Primary Physician: Kyle Churchill MD Finalized Date/Time: 05/25/18 07:18:47 Pt. Name: LAURA ARIAS /Sex: 1980 Female Med Rec #: [id number] Physician: Kyle Churchill MD Financial #: [id number] Pt. Type: O Room/Bed: / Admit/Disch: 05/25/18 [...] Signed By: Carla Curry RN 05/25/18 07:18 [facility] Operative Reporton 8 Operative Report [...] Room in good condition.Kyle Churchill M.D.lkrDictated: 05/25/2018 #[id number]: 05/25/2018 #[id number]: Tai Courtney M.D. [facility] Comment on above: Result Comment: Electronically Signed By : Zhao ARGUELLO, Kyle Dimas\Date and Time Signed: 05/25/18 09:18 EDT Patient Education - Texton 0 05-25-2018 Patient Education - Text [facility] Progress Note-Physicianon Progress Note-Physician Patient: LAURA ARIAS Age: 38 years Sex: Female : 1980 [...] report . Respiratory: Adequate air exchange with restorationist of preoperative function.. Cardiovascular: Cardiovascular function is stable and has returned to preoperative levels.. Neurologic: Pt has returned to preoperative baseline.. Review / Management Condition: Stable. Assessment Anesthetic outcome No anesthetic complications noted. Plan Transfer/ Discharge: Patient can be discharged from PACU when criteria met. Condition good. Normal [facility] Comment on above: Result Comment: Electronically Signed By : Petr Bae JR, DO\.br\Date and Time Signed: 05/25/18 10:34 EDT Progress Note-Physicianon Progress Note-Physician Patient: LAURA ARIAS Age: 38 years Sex: Female : 1980 [...] Results review: No qualifying data available. Plan [place] [employer] Anesthesiologists (ASA) physical status classification: Class II. Anesthetic Preoperative Plan Anesthesia: Monitored anesthesia care and general anesthesia if required.. Anesthetic plan, risks, benefits, and alternatives discussed with the patient and/or family. Pt. and/or family present and agree to proceed as planned.. Discussed the importance of abstaining from tobacco products, and offered counseling if desired.. Normal [facility] Comment on above: Result Comment: Electronically Signed By : Petr Bae JR, DO.joie\Date and Time Signed: 05/24/18 19:59 EDT Encounters Encounter Date Encounter Type Care Provider Facility Start: 02-20-2024 End: 02-20-2024 ambulatory Esa Marguerite Facility:[facility] Start: 02-20-2024 End: 02-20-2024 ambulatory Esa Marguerite Work Phone: [facility] Work Phone: Start: 02-20-2024 End: 02-20-2024 Departed Referred Esa Javiero Work Phone: [facility] Start: 08-08-2022 End: 08-08-[address] IRVIN COOK Facility:[facility] Start: 07-17-2022 End: 07-18-[address] IRVIN COOK Facility:[facility] Start: 11-09-2021 End: 11-09-[address] IRVIN COOK Facility:[facility] Start: 08-27-2021 End: 08-28-[address] IRVIN COOK Facility:[facility] Start: 05-25-2018 End: 05-26-2018 Ambulatory Kyle Larry Erincristopher Facility:[facility] Payers Date Payer Category Payer Self-pay 2018 Private Health Insurance 1980 Unknown [id number] 1980 Unknown [id number] [id number] 1980 Unknown [id number] [id number] [id number] 1980 Unknown [id number] [id number] [id number] 1958 Private Health Insurance [id number] 1958 Private Health Insurance [id number] Unknown [id number] Social History Date Type Detail Facility Tobacco smoking stat [facility] Unknown if ever smoked [facility] Work Phone: Start: 1980 Sex Assigned At Female F [facility] Evaluation note Note Date & Type Note Facility Evaluation note No assessment information availa ble [facility] Work Phone: Summary Purpose Family History No Family History Records FoundNo Family History Records FoundNo Family History Records Found Advance Directives No Advanced Directives Records Found Advance Directive Response Recorded Date/ Time Advance Directives No February 19 024 1:14pm Additional Source Comments INFORMATION SOURCE (unrecogn ized section and content) DATE CREATED AUTHOR 05/28/2018 [facility] DATE CREATED AUTHOR AUTHOR'S ORGANIZ ATION 08/11/2022 [facility] DATE CREATED AUTHOR AUTHOR'S ORGANIZ ATION 02/24/2024 [facility] Care Teams (unrecognized sec tion and content) Team Status: Inactive Member Role Status Dates Esa Everett Attending Provider Active Start: [facility] 2023 End: February 20, 2024 Goals [...] BE BASED ON THE PRIMARY CLINICAL RECORDS. [facility] [employer] provides no warranty or guarantee of the accuracy or completeness of information in this document.
--- NOTE | 2024-04-13 06:44 | US_ITS ---
The [address] [address] Patient Name: LAURA TRUJILLO MRN: [id number] date: 1980 Sex: F Assigned Patient Location: US Current Patient Location: US Accession/Order Number: [id number] Exam Date: 04/13/2024 06:45 Report Date: 04/13/2024 07:54 At the request of: IRVIN MARTINEZ Procedure: US right upper quadrant EXAM: US right upper quadrant HISTORY: Liver Function Test Elevated R94.5 COMPARISON: None. TECHNIQUE: Real-time Limited abdomen ultrasound. Findings: Evaluation of pancreas is limited due to overlying bowel gas. The visualized portions are unremarkable. The liver measures 22.4 cm. Echogenic and coarsened parenchymal echotexture. No focal intrahepatic mass. The main portal vein is patent and demonstrates hepatopedal flow. The gallbladder is fluid-filled. There are stones within the lumen. No gallbladder wall thickening or pericholecystic fluid. The technologist reports a negative sonographic Dorsey's sign. No biliary ductal dilatation. The common bile duct measures 0.6 cm. The right kidney measures 11.6 cm. There is good corticomedullary differentiation. No renal stones or collecting system dilatation. No focal mass or perinephric fluid collection. US/US right upper quadrant IMPRESSION: 1. Echogenic and coarsened hepatic parenchymal echotexture as can be seen with diffuse hepatocellular disease such as fatty infiltration. 2. Cholelithiasis. Electronically authenticated by: GIOVANA FERGUSON Date: 04/13/2024 07:54
--- NOTE | 2024-04-13 06:44 | US_ITS ---
The [address] [address] Patient Name: LAURA TRUJILLO MRN: [id number] date: 1980 Sex: F Assigned Patient Location: US Current Patient Location: US Accession/Order Number: [id number] Exam Date: 04/13/2024 06:45 Report Date: 04/13/2024 08:22 At the request of: IRVIN MARTINEZ Procedure: US pelvis w/ transvaginal EXAMINATION: US pelvis w/ transvaginal HISTORY: Liver Function Test Elevated R94.5 ; follow-up after dilation and curettage 6 COMPARISON: Ultrasound pelvis 10/30/2023 TECHNIQUE: Transabdominal and/or transvaginal sonographic examination was performed as indicated by examination type. FINDINGS: UTERUS: scar within lower anterior uterine wall, 2 mm in thickness with adjacent anechoic fluid collection versus cyst; not significantly changed. Uterus size: 10.7 x 4.6 x 5.8 cm ENDOMETRIUM: Homogeneous echotexture, at upper limits of normal in thickness. Endometrial thickness: 14 mm. RIGHT OVARY: Not seen. LEFT OVARY: Not seen. CUL-DE-SAC: Unremarkable. No significant free fluid. BLADDER: Unremarkable. OTHER: None. US/US pelvis w/ transvaginal IMPRESSION: 1. Endometrium is at upper limits of normal in thickness; correlate with patient's stage in her menstrual cycle. 2. Thin lower anterior uterine wall scar. Electronically authenticated by: BRIDGETTE PICKERING Date: 04/13/2024 08:22
== END 2024-04-13 06:41 | disposition home or self-care (01) ==
LOC: US 06:40
PROVIDERS: PCP Family Medicine; Visit Provider Family Medicine
DX: R94.5 Abnormal results of liver function studies (principal); R79.89 Other specified abnormal findings of blood chemistry; R10.2 Pelvic and perineal pain; K80.20 Calculus of gallbladder without cholecystitis without obstruction
CPT/HCPCS: 76705; 76830; 76856

== ENCOUNTER 2024-04-14 20:38 | Outpatient (OUT) | payer OTHER, SELFPAY ==
--- OUTSIDE RECORDS SUMMARY | 2024-04-14 20:41 | XMS_ITS | CCD ---
Author Organization [facility] Care Team Providers Care Sorority Mother Name Role Phone Nill, Kyle R Unavailable Unavailable Nill, Kyle R Unavailable Unavailable Nill, Kyle R Unavailable Unavailable Irvin Cook~[phone] UNKNOWN Unavailable Unavailable MICHELLE, DR BRYAN Admitting [...] BRYAN Consulting Unavailable Esa Everett Attending Provider [phone] Esa Everett Attending Unavailable Esa Everett Admitting Unavailable Allergies Allergy Classification Reported Allergen(s) Allergy Type Date of Onset Reaction(s) Facility (1 source) Latex; Translations: [Latex] Propensity to adverse reactions (disorder) [facility] Problems Active Problems Problem Classification Problem [...] Test Name Value Interpretation Reference Range Facility [facility] 02-19-2024 L Specimen: [id number] R eceived: 02/20/24 Status: ASSHA Frairekeara Num: [id number] Spec Type: Surgical Subm Dr: Esa Everett Tissues: A Endometrium - Curettings (EMC) Procedures: HE/2, Gross/Micro L4 Age/ Patient Sex Location Account Attending Physician Laura Arias 43/F LABELL [id number] Esa Everett SPEC NUM: [id number] RECD: 02/20/24 STATUS: SASHA FRAIREKeara NUM: [id number] FELIPE: 02/19/[address]: Esa Everett ENTERED: [...] in one cassette labeled A1. CPT Codes 14372 Specimen: [id number] Received: 02/20/24-133 Status: SASHA Baker Num: [id number] Spec Type: Surgical Subm Dr: Esa Everett Tissues: A Endometrium - Curettings (EMC) Procedures: HE/2, Gross/Micro L4 Patient: Laura Arias [id number] (Continued) Signed (signature on file) Mary Michaels MD 02/23/24 1330 [facility] Covid-19 PCR (CVDTBH)on SARS-CoV-2 (COVID-19) RNA ANKITA+probe Ql (Unsp spec) Detected Critically abnormal NOT DETECTED [facility] Comment on above: Result Comment: This test is not yet zoe roved or cleared by the [place] FDA. When there are no FDA-approved or cleared tests available, and other criteria are met, FDA can make tests available under an emergency access mechanism called an Emergency Use Authorization (EUA). The EUA for this test is supported by the [place] of Health and Human Service's declaration that [...] used). Performed By: #### C VDTB #### [facility] [address] [place] [address] Dr. Bessie Pro Covid-19 PCR ([facility])on 10-31 SARS-CoV-2 (COVID-19) RNA ANKITA+probe Ql (Unsp spec) Not detected Normal NOT DETECTED [facility] Comment on above: Result Comment: This test is not yet zoe roved or cleared by the [place] FDA. When there are no FDA-approved or cleared tests available, and other criteria are met, FDA can make tests available under an emergency access mechanism called an Emergency Use Authorization (EUA). The EUA for this test is supported by the [place] of Health and Human Service's (HHS's) declaration [...] SARS-CoV-2. Performed By: #### C VDTB #### [facility] [address] [place] [address] ABD/PELVIS WO CONon [...] by: RALF BENNETT Date: 2021-08-27 09:54 Normal [facility] Coding Summary.on 05-28-2018 Coding Summary. CODING DATE: 018 FINAL [facility] STATUS: Home (Routine DC) PAYOR: Commercial [...] PROC APC STAT DESCRIPTION DOCTOR NAME DATE [id number] Kyle Churchill MD 05/25/2018 phagogastroduodenoscopy, flexible, transoral; with biopsy, single or multiple 69580 5311 T Colonoscopy, flexible; Kyle Churchill MD 05/25/2018 diagnostic, including collection of specimen(s) by brushing or washing, when performed (separate procedure) 50546 Anesthesia for combined Kyle Churchill MD 05/25/2018 [...] Robles Date Saved: 05/28/2018 02:11 pm Normal [facility] Main OR Intraoperative Recor don 05-26-2018 Main OR Intraoperative Record IntraOp Document Type FT Summary Primary Physician: Kyle Churchill MD Finalized Date/Time: 05/26/18 12:57:13 Pt. Name: HUGO L /Sex: 1980 Female Med Rec #: [id number] Physician: Kyle Churchill MD Financial #: [id number] Pt. Type: O Room/Bed: / Admit/Disch: 05/25/18 [...] to review and send charges Edin Lacey APPLE SORTER Case Attendance FT Entry 1 Entry 2 Entry 3 Case Attendee Amira Bermudez MD, Kyle Woods RN, Venessa Shabazz Role Performed Anesthesiologist Surgeon - Primary Nursing Resident - Primary Shelf Filler Time In 05/25/18 08:02:00 05/25/18 08:02:00 05/25/18 [...] Richa Gonzales CST, Conner Braxton Role Performed Nursing Resident - Primary Scrub - Primary Time In [...] and tissue Entry 1 Skin Integrity Intact, [place], Warm, and Skin Abnormality No Dry Outcomes [...] RN Patient Status Stable Skin. Condition Intact, [place], Warm, and Dry Airway Maintenance Oxygen in Use? No Outcomes Met? Yes Last Modified By: Venessa Woods RN 05/25/18 07:06:29 Post-Care Text: The patient is free from signs and symptoms of injury related to transfer/transport General Comments: Report given to FOREIGN LANGUAGE INSTRUCTOR Mason BIRD RNstore consultant Administration FT Pre-Care Text: Verifies allergies, [...] safely administered during the perioperative period For [place] please see scanned medication reconcilliation form for [...] 05/26/18 12:15 Venessa Woods RN 05/26/18 12:57 [facility] History and Physicalon 05-25 History and Physical Patient: LAURA ARIAS Age: 38 years Sex: Female : 1980 Associated Diagnoses: None Author: Kyle Churchill MD Subjective no changes to [facility] Comment on above: Result Comment: Electronically Signed By : Kyle Churchill MD\.br\Date and Time Signed: 05/25/18 08:33 EDT Inpatient Patient Summaryon 05-25-2018 Inpatient [facility] InstructionsPERSON INFORMATION Name: LAURA ARIAS PHYSICIANS Admitting Physician: Kyle Churchill MD Physician: Kyle Churchill MD PCP: Alber Cook MD Diagnosis: Antral gastritis Comment: PATIENT EDUCATION INFORMATIONInstructions:Medicati on Leaflets:Follow up:With: Address: When: [place] [address] [facility] (1) Within 2 weeks MEDICATION LISTComment: [facility] Main OR PACU I Recordon 05-02 Main OR PACU I Record PACU Phase I Document Type FT Summary Primary Physician: Kyle Churchill MD Finalized Date/Time: 05/25/18 09:10:36 Pt. Name: LAURA ARIAS /Sex: 1980 Female Med Rec #: [id number] Physician: Kyle Churchill MD Financial #: [id number] Pt. Type: O Room/Bed: / Admit/Disch: 05/25/18 [...] By: Mary Rodriguez RN 05/25/18 09:10 Normal [facility] Main OR Preoperative Recordo n 05-25-2018 Main OR Preoperative Record Holding Area Document Type FT Summary Primary Physician: Kyle Churchill MD Finalized Date/Time: 05/25/18 07:18:47 Pt. Name: LAURA ARIAS /Sex: 1980 Female Med Rec #: [id number] Physician: Kyle Churchill MD Financial #: [id number] Pt. Type: O Room/Bed: / Admit/Disch: 05/25/18 [...] Signed By: Carla Curry RN 05/25/18 07:18 [facility] Operative Reporton 8 Operative Report Date of [...] Room in good condition.Kyle Churchill M.D.lkrDictated: 05/25/2018 #[id number]: 05/25/2018 #[id number]: Tai Courtney M.D. [facility] Comment on above: Result Comment: Electronically Signed By : Zhao ARGUELLO, Kyle Dimas\Date and Time Signed: 05/25/18 09:18 EDT Patient Education - Texton 0 05-25-2018 Patient Education - Text [facility] Progress Note-Physicianon Progress Note-Physician Patient: LAURA ARIAS [...] report . Respiratory: Adequate air exchange with moravian of preoperative function.. Cardiovascular: Cardiovascular function is stable and has returned to preoperative levels.. Neurologic: Pt has returned to preoperative baseline.. Review / Management Condition: Stable. Assessment Anesthetic outcome No anesthetic complications noted. Plan Transfer/ Discharge: Patient can be discharged from PACU when criteria met. Condition good. Normal [facility] Comment on above: Result Comment: Electronically Signed [...] Results review: No qualifying data available. Plan [place] Society of Anesthesiologists (ASA) physical status classification: Class II. Anesthetic Preoperative Plan Anesthesia: Monitored anesthesia care and general anesthesia if required.. Anesthetic plan, risks, benefits, and alternatives discussed with the patient and/or family. Pt. and/or family present and agree to proceed as planned.. Discussed the importance of abstaining from tobacco products, and offered counseling if desired.. Normal [facility] Comment on above: Result Comment: Electronically Signed By : Petr Bae JR, DO.joie\Date and Time Signed: 05/24/18 19:59 EDT Encounters Encounter Date Encounter Type Care Provider Facility Start: 02-20-2024 End: 02-20-2024 ambulatory Esa Marguerite Facility:[facility] Start: 02-20-2024 End: 02-20-2024 ambulatory Esa Marguerite Work Phone: [facility] Work Phone: Start: 02-20-2024 End: 02-20-2024 Departed Referred Esa Javiero Work Phone: [facility] Start: 08-08-2022 End: 08-08-[address] IRVIN COOK Facility:[facility] Start: 07-17-2022 End: 07-18-[address] IRVIN COOK Facility:[facility] Start: 11-09-2021 End: 11-09-[address] IRVIN COOK Facility:[facility] Start: 08-27-2021 End: 08-28-[address] IRVIN COOK Facility:[facility] Start: 05-25-2018 End: 05-26-2018 Ambulatory Kyle Larry Erincristopher [place] Payers Date Payer Category Payer Self-pay 2018 Private Health Insurance 1980 Unknown [id number] [id number] [id number] 1980 Unknown [id number] [id number] [id number] 1980 Unknown [id number] 2.16.84 [id number] 1980 Unknown [id number] 2.16.84 [id number] 1958 Private Health Insurance [id number] 1958 Private Health Insurance [id number] Unknown [id number] 2.16.8 [id number] Social History Date Type Detail Facility Tobacco smoking stat [facility] Unknown if ever smoked [facility] Work Phone: Start: 1980 Sex Assigned At Female F [facility] Evaluation note Note Date & Type Note Facility Evaluation note No assessment information availa ble [facility] Work Phone: Summary Purpose Family History No Family History Records FoundNo Family History Records FoundNo Family History Records Found Advance Directives No Advanced Directives Records Found Advance Directive Response Recorded Date/ Time Advance Directives No February 19 024 1:14pm Additional Source Comments INFORMATION SOURCE (unrecogn ized section and content) DATE CREATED AUTHOR 05/28/2018 [employer] [facility] DATE CREATED AUTHOR AUTHOR'S ORGANIZ ATION 08/11/2022 [facility] DATE CREATED AUTHOR AUTHOR'S ORGANIZ ATION 02/24/2024 [facility] Care Teams (unrecognized sec tion and content) Team Status: Inactive Member Role Status Dates Esa Everett Attending Provider Active Start: [facility] 2023 End: February 20, 2024 Goals (unrecognized [...] BE BASED ON THE PRIMARY CLINICAL RECORDS. [facility] [employer] provides no warranty or guarantee of the accuracy or completeness of information in this document.
== END 2024-04-14 20:39 | disposition home or self-care (01) ==
LOC: SLEEP 20:38
PROVIDERS: PCP Family Medicine; Visit Provider Family Medicine
DX: G47.33 Obstructive sleep apnea (adult) (pediatric) (principal); G47.30 Sleep apnea, unspecified
CPT/HCPCS: 95810

== ENCOUNTER 2024-04-28 19:42 | Outpatient (OUT) | payer OTHER, SELFPAY ==
--- OUTSIDE RECORDS SUMMARY | 2024-04-28 19:46 | XMS_ITS | CCD ---
Author Organization [facility] Care Team Providers Care Cartoonist Special Effects Name Role Phone Erinl, Kyle R Unavailable Unavailable Nill, Kyle R Unavailable Unavailable Nill, Kyle R Unavailable Unavailable Irvin Cook~[phone] UNKNOWN Unavailable Unavailable MICHELLE, DR BRYAN Admitting Unavailable MISBAHY, DR BRYAN Attending Unavailable MICHELLE, DR BRYAN Primary Care Unavailable MICHELLE, DR BRYAN Consulting Unavailable MICHELLE, DR BRYAN Admitting Unavailable MISBAHY, DR BRYAN Attending Unavailable MICHELLE, DR BRYAN [...] BRYAN Consulting Unavailable Esa Everett Attending Provider Esa Everett Attending Unavailable Esa Everett Admitting Unavailable Allergies Allergy Classification Reported Allergen(s) Allergy Type Date of Onset Reaction(s) Facility (1 source) Latex; Translations: [Latex] Propensity to adverse reactions (disorder) [facility] Problems Active Problems Problem [...] Test Name Value Interpretation Reference Range Facility [facility] 02-19-2024 L Specimen: [id number] eceived: 02/20/24 Status: SASHA Olivia Num: [id number] Spec Type: Surgical Subm Dr: Esa Everett Tissues: A Endometrium - Curettings (EMC) Procedures: HE/2, Gross/Micro L4 Age/ Patient Sex Location Account Attending Physician Laura Arias 43/F LABELL [id number] Esa Everett SPEC NUM: [id number] RECD: 02/20/24 STATUS: SASHA FRAIREHermelinda NUM: [id number] FELIPE: 02/19/[address]: Esa Everett ENTERED: [...] in one cassette labeled A1. CPT Codes 90506 Specimen: [id number] Received: 02/20/24-1338 Status: SASHA Baker Num: [id number] Spec Type: Surgical Subm Dr: Esa Everett Tissues: A Endometrium - Curettings (EMC) Procedures: HE/2, Gross/Micro L4 Patient: Laura Arias [id number] (Continued) Signed (signature on file) Mary Michaels MD 02/23/24 1330 [facility] Covid-19 PCR (CVDTBH)on SARS-CoV-2 (COVID-19) RNA ANKITA+probe Ql (Unsp spec) Detected Critically abnormal NOT DETECTED [facility] Comment on above: Result Comment: This test is not yet zoe roved or cleared by the [place] FDA. When there are no FDA-approved or cleared tests available, and other criteria are met, FDA can make tests available under an emergency access mechanism called an Emergency Use Authorization (EUA). The EUA for this test is supported by the [place] of Health and Human Service's declaration that [...] used). Performed By: #### C VDTB #### [facility] [address] [place], [place] [address] Dr. Bessie Pro Covid-19 PCR ([facility])on 10-31 SARS-CoV-2 (COVID-19) RNA ANKITA+probe Ql (Unsp spec) Not detected Normal NOT DETECTED [facility] Comment on above: Result Comment: This test is not yet zoe roved or cleared by the [place] FDA. When there are no FDA-approved or cleared tests available, and other criteria are met, FDA can make tests available under an emergency access mechanism called an Emergency Use Authorization (EUA). The EUA for this test is supported by the Environmental Field Team Member of Health and Human Service's (HHS's) declaration [...] SARS-CoV-2. Performed By: #### C VDTB #### [facility] [address] [place] [address] ABD/PELVIS WO CONon [...] RALF BENNETT Date: 2021-08-27 09:54 Normal [facility] Coding Summary.on 05-28-2018 Coding Summary. CODING DATE: 018 FINAL [facility] STATUS: Home (Routine DC) PAYOR: Commercial Insurance [...] PROC APC STAT DESCRIPTION DOCTOR NAME DATE [id number] Kyle Churchill MD 05/25/2018 phagogastroduodenoscopy, flexible, transoral; with biopsy, single or multiple 19500 5311 T Colonoscopy, flexible; Kyle Churchill MD 05/25/2018 diagnostic, including collection of specimen(s) by brushing or washing, when performed (separate procedure) 60451 Anesthesia for combined Kyle Churchill MD 05/25/2018 [...] Robles Date Saved: 05/28/2018 02:11 pm Normal [facility] Main OR Intraoperative Recor don 05-26-2018 Main OR Intraoperative Record IntraOp Document Type FT Summary Primary Physician: Kyle Churchill MD Finalized Date/Time: 05/26/18 12:57:13 Pt. Name: LAURA ARIAS Clay Mackenzie/Sex: 1980 Female Med Rec #: [id number] Physician: Kyle Churchill MD Financial #: [id number] Pt. Type: O Room/Bed: / Admit/Disch: 05/25/18 [...] Shabazz Role Performed Anesthesiologist Surgeon - Primary Business Office Director - Primary School Standards Coach Time In 05/25/18 08:02:00 05/25/18 08:02:00 05/25/18 [...] Richa Gonzales CST, Conner Braxton Role Performed Business Office Director - Primary Scrub - Primary Time In [...] LOCK, Amira M, Given Participants Zhao ARGUELLO, Peggy Spencer RN, Venessa Shabazz, Gael PATTERSON, Christian Pearson CST, Conner Braxton Time Out [...] normal colon Primary Procedure Yes Primary Surgeon Kyle Churchill MD Start 05/25/18 08:09:00 Stop 05/25/18 08:26:00 Anesthesia [...] and tissue Entry 1 Skin Integrity Intact, [place], Warm, and Skin Abnormality No Dry Outcomes [...] RN Patient Status Stable Skin. Condition Intact, [place], Warm, and Dry Airway Maintenance Oxygen in Use? No Outcomes Met? Yes Last Modified By: Venessa Woods RN 05/25/18 07:06:29 Post-Care Text: The patient is free from signs and symptoms of injury related to transfer/transport General Comments: Report given to LEVELMAN - MARGE PATTERSONdrivematic machine operator Administration FT Pre-Care Text: Verifies allergies, [...] safely administered during the perioperative period For [place] please see scanned medication reconcilliation form for [...] 05/26/18 12:15 Venessa Woods RN 05/26/18 12:57 [facility] History and Physicalon 05-25 History and Physical Patient: LAURA ARIAS Age: 38 years Sex: Female : 1980 Associated Diagnoses: None Author: Kyle Churchill MD Subjective no changes to [facility] & [facility] Comment on above: Result Comment: Electronically Signed By : Kyle Churchill MD\.br\Date and Time Signed: 05/25/18 08:33 EDT Inpatient Patient Summaryon 05-25-[address] [facility] Inst[facility] INFORMATION Name: LAURA ARIAS PHYSICIANS Admitting Physician: Kyle Churchill MD Physician: Kyle Churchill MD PCP: Alber Cook MD Diagnosis: Antral gastritis Comment: PATIENT EDUCATION INFORMATIONInstructions:Medicati on Leaflets:Follow up:With: Address: When: [place] [address] Business (1) Within 2 weeks MEDICATION LISTComment: [facility] Main OR PACU I Recordon 05-02 Main OR PACU I Record PACU Phase I Document Type FT Summary Primary Physician: Kyle Churchill MD Finalized Date/Time: 05/25/18 09:10:36 Pt. Name: LAURA ARIAS Clay UgaldeB./Sex: 1980 Female Med Rec #: [id number] Physician: Kyle Churchill MD Financial #: [id number] Pt. Type: O Room/Bed: / Admit/Disch: 05/25/18 [...] By: Mary Rodriguez RN 05/25/18 09:10 Normal [facility] Main OR Preoperative Recordo n 05-25-2018 Main OR Preoperative Record Holding Area Document Type FT Summary Primary Physician: Kyle Churchill MD Finalized Date/Time: 05/25/18 07:18:47 Pt. Name: LAURA ARIAS Clay /Sex: 1980 Female Med Rec #: [id number] Physician: Kyle Churchill MD Financial #: [id number] Pt. Type: O Room/Bed: / Admit/Disch: 05/25/18 [...] Signed By: Carla Curry RN 05/25/18 07:18 [facility] Operative Reporton 8 Operative Report Date [...] Room in good condition.Kyle Churchill M.D.lkrDictated: 05/25/2018 #[id number]: 05/25/2018 #[id number]: Tai Courtney M.D. [facility] Comment on above: Result Comment: Electronically Signed By : Zhao ARGUELLO, Kyle Sandrabr\Date and Time Signed: 05/25/18 09:18 EDT Patient Education - Texton 0 05-25-2018 Patient Education - Text [facility] Progress Note-Physicianon Progress Note-Physician Patient: LAURA ARIAS Age: 38 years Sex: Female : 1980 Associated Diagnoses: None Author: Petr aBe JR, DO Postoperative Information Post Operative Note: [...] report . Respiratory: Adequate air exchange with bahai of preoperative function.. Cardiovascular: Cardiovascular function is stable and has returned to preoperative levels.. Neurologic: Pt has returned to preoperative baseline.. Review / Management Condition: Stable. Assessment Anesthetic outcome No anesthetic complications noted. Plan Transfer/ Discharge: Patient can be discharged from PACU when criteria met. Condition good. Normal [facility] Comment on above: Result Comment: Electronically Signed [...] Results review: No qualifying data available. Plan [place] Society of Anesthesiologists (ASA) physical status classification: Class II. Anesthetic Preoperative Plan Anesthesia: Monitored anesthesia care and general anesthesia if required.. Anesthetic plan, risks, benefits, and alternatives discussed with the patient and/or family. Pt. and/or family present and agree to proceed as planned.. Discussed the importance of abstaining from tobacco products, and offered counseling if desired.. Normal [facility] Comment on above: Result Comment: Electronically Signed By : Petr Bae JR, DO.joie\Date and Time Signed: 05/24/18 19:59 EDT Encounters Encounter Date Encounter Type Care Provider Facility Start: 02-20-2024 End: 02-20-2024 ambulatory Esa Everett Facility:[facility] Start: 02-20-2024 End: 02-20-2024 ambulatory Esa Everett Work Phone: [facility] Work Phone: Start: 02-20-2024 End: 02-20-2024 Departed Referred Esa Everett Work Phone: [facility] Start: 08-08-2022 End: 08-08-[address] IRVIN COOK Facility:[facility] Start: 07-17-2022 End: 07-18-[address] IRVIN COOK Facility:[facility] Start: 11-09-2021 End: 11-09-[address] IRVIN COOK Facility:[facility] Start: 08-27-2021 End: 08-28-[address] IRVIN COOK Facility:[facility] Start: 05-25-2018 End: 05-26-2018 Ambulatory Kyle Churchill Facility:[facility] Payers Date Payer Category Payer Self-pay 2018 Private Health Insurance 1980 Unknown [id number] 2.16.84 [id number] 1980 Unknown [id number] 2.16.84 [id number] 1980 Unknown [id number] 2.16.84 [id number] 1980 Unknown [id number] 2.16.84 [id number] 1958 Private Health Insurance [id number] 1958 Private Health Insurance [id number] Unknown [id number] 2.16.8 [id number] Social History Date Type Detail Facility Tobacco smoking stat [facility] Unknown if ever smoked [facility] Work Phone: Start: 1980 Sex Assigned At Female F [facility] Evaluation note Note Date & Type Note Facility Evaluation note No assessment information availa ble [facility] Work Phone: Summary Purpose Family History No Family History Records FoundNo Family History Records FoundNo Family History Records Found Advance Directives No Advanced Directives Records Found Advance Directive Response Recorded Date/ Time Advance Directives No February 19 024 1:14pm Additional Source Comments INFORMATION SOURCE (unrecogn ized section and content) DATE CREATED AUTHOR 05/28/2018 [facility] DATE CREATED AUTHOR AUTHOR'S ORGANIZ ATION 08/11/2022 [facility] DATE CREATED AUTHOR AUTHOR'S ORGANIZ ATION 02/24/2024 [facility] Care Teams (unrecognized sec tion and content) Team Status: Inactive Member Role Status Dates Esa Everett Attending Provider Active Start: [facility] 2023 End: February 20, 2024 Goals (unrecognized [...] BE BASED ON THE PRIMARY CLINICAL RECORDS. [employer] provides no warranty or guarantee of the accuracy or completeness of information in this document.
== END 2024-04-28 19:43 | disposition home or self-care (01) ==
LOC: SLEEP 19:42
PROVIDERS: PCP Family Medicine; Visit Provider Family Medicine
DX: G47.33 Obstructive sleep apnea (adult) (pediatric) (principal)
CPT/HCPCS: 95811

== ENCOUNTER 2024-05-25 13:35 | Outpatient (OUT) | payer OTHER, SELFPAY ==
--- OUTSIDE RECORDS SUMMARY | 2024-05-25 13:44 | XMS_ITS | CCD ---
Author Organization [facility] Care Team Providers Care Virtual Classroom Manager Name Role Phone Erinl, Kyle R Unavailable Unavailable Nill, Kyle R Unavailable Unavailable Nill, Kyle R Unavailable Unavailable Irvin Cook~[phone] UNKNOWN Unavailable Unavailable MICHELLE, DR BRYAN Admitting Unavailable HOY, DR BRYAN Attending Unavailable MICHELLE, DR BRYAN Primary Care Unavailable MISBAHY, DR BRYAN Consulting Unavailable MICHELLE, DR BRYAN [...] Translations: [Latex] Propensity to adverse reactions [facility]disorder) [facility] Active Problems Problem Classification [...] Test Name Value Interpretation Reference Range Facility [facility] 02-19-2024 L Specimen: [id number] eceived: 02/20/24 Status: SASHA Olivia Num: [id number] Spec Type: Surgical Subm Dr: Esa Everett Tissues: A Endometrium - Curettings (EMC) Procedures: HE/2, Gross/Micro L4 Age/ Patient Sex Location Account Attending Physician Laura Arias 43/F LABELL [id number] Esa Everett SPEC NUM: [id number] RECD: 02/20/24 STATUS: SASHA FRAIREHermelinda NUM: [id number] FELIPE: 02/19/[address]: Esa Everett ENTERED: 02/20/241340 OT DR: iBanca,Lab SPEC TYPE: Surgical DEPT: HERNANDEZ HINDS ORDERED: [...] in one cassette labeled A1. CPT Codes 54795 Specimen: [id number] Received: 02/20/24-1338 Status: SASHA Baker Num: [id number] Spec Type: Surgical Subm Dr: Esa Everett Tissues: A Endometrium - Curettings (EMC) Procedures: HE/2, Gross/Micro L4 Patient: Laura Arias [id number] (Continued) Signed (signature on file) Mary Michaels MD 02/23/24 1330 [facility] Covid-19 PCR ([facility])on SARS-CoV-2 (COVID-19) RNA ANKITA+probe Ql (Unsp spec) Detected Critically abnormal NOT DETECTED [facility] Comment on above: Result Comment: This test is not yet zoe roved or cleared by the [place] FDA. When there are no FDA-approved or cleared tests available, and other criteria are met, FDA can make tests available under an emergency access mechanism called an Emergency Use Authorization (EUA). The EUA for this test is supported by the [place] of Health and Human Service's declaration that [...] used). Performed By: #### C VDTB #### [facility] [address] [place], [place] [address] Dr. Bessie Pro Covid-19 PCR ([facility])on 10-31 SARS-CoV-2 (COVID-19) RNA ANKITA+probe Ql (Unsp spec) Not detected Normal NOT DETECTED [facility] Comment on above: Result Comment: This test is not yet zoe roved or cleared by the [place] FDA. When there are no FDA-approved or cleared tests available, and other criteria are met, FDA can make tests available under an emergency access mechanism called an Emergency Use Authorization (EUA). The EUA for this test is supported by the [employer] of Health and Human Service's (HHS's) declaration [...] SARS-CoV-2. Performed By: #### C VDTB #### [facility] [address] [place] [id number] ABD/PELVIS WO CONon [...] RALF BENNETT Date: 2021-08-27 09:54 Normal [facility] Coding Summary.on 05-28-2018 Coding Summary. [...] PROC APC STAT DESCRIPTION DOCTOR NAME DATE [id number] Kyle Churchill MD 05/25/2018 phagogastroduodenoscopy, flexible, transoral; with biopsy, single or multiple 62063 5311 T Colonoscopy, flexible; Kyle Churchill MD 05/25/2018 diagnostic, including collection of specimen(s) by brushing or washing, when performed (separate procedure) 62261 Anesthesia for combined Kyle Churchill MD 05/25/2018 [...] Robles Date Saved: 05/28/2018 02:11 pm Normal [place] [facility] Main OR Intraoperative Recor don 05-26-2018 Main OR Intraoperative Record IntraOp Document Type FT Summary Primary Physician: Kyle Churchill MD Finalized Date/Time: 05/26/18 12:57:13 Pt. Name: LAURA ARIAS Clay Mackenzie/Sex: 1980 Female Med Rec #: [id number] Physician: Kyle Churchill MD Financial #: [id number] Pt. Type: O Room/Bed: / Admit/Disch: 05/25/18 [...] Shabazz Role Performed Anesthesiologist Surgeon - Primary Riveter - Primary Senior Sas Developer Time In 05/25/18 08:02:00 05/25/18 08:02:00 [...] Richa Gonzales CST, Conner Braxton Role Performed Riveter - Primary Scrub - Primary Time In [...] Applicable) PreOp Antibiotic No Time Out Amira Bermudez M, Given Participants Zhao ARGUELLO, Kyle Larry, Peggy PATTERSON, Venessa Shabazz, Gael PATTERSON, Christian Pearson CST, [...] and tissue Entry 1 Skin Integrity Intact, [place], Warm, and Skin Abnormality No Dry Outcomes [...] RN Patient Status Stable Skin. Condition Intact, [place], Warm, and Dry Airway Maintenance Oxygen in Use? No Outcomes Met? Yes Last Modified By: Venessa Woods RN 05/25/18 07:06:29 Post-Care Text: The patient is free from signs and symptoms of injury related to transfer/transport General Comments: Report given to TRAINING INSTRUCTOR - MARGE PATTERSONtransfer knitter Administration FT Pre-Care Text: Verifies allergies, administers [...] 05/26/18 12:15 Venessa Woods RN 05/26/18 12:57 [facility] History and Physicalon 05-25 History and Physical Patient: LAURA ARIAS Age: 38 years Sex: Female : 1980 Associated Diagnoses: None Author: Kyle Churchill MD Subjective no changes to H & P [facility] Comment on above: Result Comment: Electronically Signed By : Kyle Churchill MD\.br\Date and Time Signed: 05/25/18 08:33 EDT Inpatient Patient Summaryon 05-25-2018 [facility] Instructions[facility] INFORMATION Name: LAURA ARIAS PHYSICIANS Admitting Physician: Kyle Churchill MD Physician: Kyle Churchill MD PCP: Alber Cook MD Diagnosis: Antral gastritis Comment: PATIENT EDUCATION INFORMATIONInstructions:Medicati on Leaflets:Follow up:With: Address: When: [place] [address] [facility] (1) Within 2 weeks MEDICATION LISTComment: [facility] Main OR PACU I Recordon 05-02 Main OR PACU I Record PACU Phase I Document Type FT Summary Primary Physician: Kyle Churchill MD Finalized Date/Time: 05/25/18 09:10:36 Pt. Name: LAURA ARIAS /Sex: 1980 Female Med Rec #: [id number] Physician: Kyle Churchill MD Financial #: [id number] Pt. Type: O Room/Bed: / Admit/Disch: 05/25/18 [...] By: Mary Rodriguez RN 05/25/18 09:10 Normal [place] [facility] Main OR Preoperative Recordo n 05-25-2018 Main OR Preoperative Record Holding Area Document Type FT Summary Primary Physician: Kyle Churchill MD Finalized Date/Time: 05/25/18 07:18:47 Pt. Name: LAURA ARIAS Clay /Sex: 1980 Female Med Rec #: [id number] Physician: Kyle Churchill MD Financial #: [id number] Pt. Type: O Room/Bed: / Admit/Disch: 05/25/18 [...] By: Carla Curry RN 05/25/18 07:18 Normal [facility] Operative Reporton 8 Operative Report Date [...] Room in good condition.Kyle Churchill M.D.lkrDictated: 05/25/2018 #[id number]: 05/25/2018 #[id number]: Tai Courtney M.D. [facility] Comment on above: Result Comment: Electronically Signed By : Zhao ARGUELLO, Kyle Sandrabr\Date and Time Signed: 05/25/18 09:18 EDT Patient Education - Texton 0 05-25-2018 Patient Education - Text [facility] Progress Note-Physicianon Progress Note-Physician Patient: LAURA ARIAS [...] report . Respiratory: Adequate air exchange with judaism of preoperative function.. Cardiovascular: Cardiovascular function is stable and has returned to preoperative levels.. Neurologic: Pt has returned to preoperative baseline.. Review / Management Condition: Stable. Assessment Anesthetic outcome No anesthetic complications noted. Plan Transfer/ Discharge: Patient can be discharged from PACU when criteria met. Condition good. Normal [facility] Comment on above: Result Comment: Electronically [...] Results review: No qualifying data available. Plan [place] [employer] Anesthesiologists (ASA) physical status classification: Class II. Anesthetic Preoperative Plan Anesthesia: Monitored anesthesia care and general anesthesia if required.. Anesthetic plan, risks, benefits, and alternatives discussed with the patient and/or family. Pt. and/or family present and agree to proceed as planned.. Discussed the importance of abstaining from tobacco products, and offered counseling if desired.. Normal [facility] Comment on above: Result Comment: Electronically Signed By : Petr Bae JR, DO\Date and Time Signed: 05/24/18 19:59 EDT Encounters Encounter Date Encounter Type Care Provider Facility Start: 02-20-2024 End: 02-20-2024 ambulatory Esa Everett Facility:[facility] Start: 02-20-2024 End: 02-20-2024 ambulatory Esa Everett Work Phone: [facility] Work Phone: Start: 02-20-2024 End: 02-20-2024 Departed Referred Esa Everett Work Phone: [facility] Start: 08-08-2022 End: 08-08-[address] IRVIN COOK Facility:[facility] Start: 07-17-2022 End: 07-18-[address] IRVIN COOK Facility:[facility] Start: 11-09-2021 End: 11-09-[address] IRVIN COOK Facility:[facility] Start: 08-27-2021 End: 08-28-[address] IRVIN COOK Facility:[facility] Start: 05-25-2018 End: 05-26-2018 Ambulatory Kyle Churchill Facility:[facility] Payers Date Payer Category Payer Self-pay 2018 Private Health Insurance 1980 Unknown [id number] [id number] 1980 Unknown [id number] [id number] 1980 Unknown [id number] [id number] [id number] 1980 Unknown [id number] [id number] [id number] 1958 Private Health Insurance [id number] 1958 Private Health Insurance [id number] Unknown [id number] [id number] [id number] Social History Date Type Detail Facility Tobacco smoking stat [facility] Unknown if ever smoked [facility] Work Phone: Start: 1980 Sex Assigned At Female [facility] Evaluation note Note Date & Type Note Facility Evaluation note No assessment information availa ble [facility] Work Phone: Summary Purpose Family History No Family History Records FoundNo Family History Records FoundNo Family History Records Found Advance Directives No Advanced Directives Records Found Advance Directive Response Recorded Date/ Time Advance Directives No February 19 024 1:14pm Additional Source Comments INFORMATION SOURCE (unrecogn ized section and content) DATE CREATED AUTHOR 05/28/2018 Robert Cisneros [facility] DATE CREATED AUTHOR AUTHOR'S ORGANIZ ATION 08/11/2022 [facility] DATE CREATED AUTHOR AUTHOR'S ORGANIZ ATION 02/24/2024 [facility] Care Teams (unrecognized sec tion and content) Team Status: Inactive Member Role Status Dates Esa Everett Attending Provider Active Start: [facility] 2023 End: February 20, 2024 [...] BE BASED ON THE PRIMARY CLINICAL RECORDS. [employer] provides no warranty or guarantee of the accuracy or completeness of information in this document.
== END 2024-05-25 13:36 | disposition home or self-care (01) ==
PROVIDERS: PCP Family Medicine
DX: Z71.3 Dietary counseling and surveillance (principal); Z68.42 Body mass index [BMI] 45.0-49.9, adult
CPT/HCPCS: 97802

== ENCOUNTER 2024-12-13 09:45 | Outpatient (OUT) | payer OTHER, SELFPAY ==
--- NOTE | 2024-12-13 09:53 | US_ITS ---
[address] [address] Patient Name: LAURA TRUJILLO MRN: [id number] date: 1980 Sex: F Assigned Patient Location: [place] Current Patient Location: [place] Accession/Order Number: [id number] Exam Date: 12/13/2024 09:55 Report Date: 12/13/2024 10:24 At the request of: IRVIN MARTINEZ Procedure: US renal bladder EXAMINATION: US renal bladder HISTORY: Hematuria COMPARISON: No relevant comparison available. TECHNIQUE: Ultrasound examination was performed of the bladder. FINDINGS: Right Kidney: Normal in size, contour and echotexture. No solid cortical mass, hydronephrosis or obstructing nephrolithiasis. Height: 5.62 cm Length: 12.50 cm Width: 4.81 cm Left Kidney: Normal in size, contour and echotexture. No solid cortical mass, hydronephrosis or obstructing nephrolithiasis Height: 6.94 cm Length: 13.06 cm Width: 5.41 cm Urinary bladder: Prevoid volume 246 mL. Post void volume 5 mL Ureteral jets: Visualized bilaterally US/US renal bladder IMPRESSION: Normal examination. Electronically authenticated by: RALF BENNETT Date: 12/13/2024 10:24
== END 2024-12-13 09:46 | disposition home or self-care (01) ==
LOC: US 09:47
PROVIDERS: PCP Family Medicine; Visit Provider Family Medicine
DX: R31.9 Hematuria, unspecified (principal)
CPT/HCPCS: 76770

== ENCOUNTER 2025-01-09 23:10 | Emergency (ER) | payer OTHER, SELFPAY ==
[2025-01-09 23:21] VITALS: BP 150/77; PULSE 76; TEMP 36.6; O2SAT 97; BMI 47.6
--- OUTSIDE RECORDS SUMMARY | 2025-01-09 23:31 | XMS_ITS | CCD ---
Author Organization [facility] Care Team Providers Care Professional Organizer Name Role Phone Nill, Kyle R Unavailable Unavailable Nill, Kyle R Unavailable Unavailable Nill, Kyle R Unavailable Unavailable Irvin [phone] UNKNOWN Unavailable Unavailable MICHELLE, DR BRYAN Admitting [...] Translations: [Latex] Propensity to adverse reactions (disorder) AOF [facility] Repository Medications Current Medications Medication Drug Class(es) Dates Sig (Normalized) Sig (Original) [id number] 200 actuat albuterol 0.09 mg/actuat metered dose inhaler (1 source) beta2-Adrenergic Agonist Start: 12-19-2024 take 1 puff(s) by inhalation every four to six hours as needed for wheezing Albuterol Sulfate 90 mcg/actuation HFA aerosol inhaler Active 2 PUFF INHALATION EVERY 4-6 HOURS as needed for shortness of breath or wheezing 8.5 December 19, 2024 12:00am azithromycin 250 mg oral tablet (1 source) Macrolide Antimicrobial Start: 12-19-2024 Azithromycin 250 mg tablet Active 0 PO .COMPLEX December 19, 2024 12:00am For 250 mg dose pack: take 500 mg today (day 1), then 250 mg for 4 days (days 2-5) PO lisinopril 40 mg oral tablet (1 source) Angiotensin Converting Enzyme Inhibitor Start: 12-19-2024 Lisinopril 40 mg tablet Active MG PO December 19, 2024 12:00am predniSONE 20 mg oral tablet (1 source) Start: 12-19-2024 take 2 tablets by mouth once daily Prednisone 20 mg tablet Active 20 MG PO .COMPLEX December 19, 2024 12:00am Take 2 tabs po daily x 5 days Completed/Discontinued Medications Medication Drug Class(es) Dates Sig (Normalized) Sig (Original) 24 hr dilTIAZem hydrochloride 180 mg extended release oral tablet (1 source) Calcium Channel Karol Start: 12-19-2024 End: 12-19-2024 take 1 tablet by mouth every twenty-four hours Diltiazem Hcl 180 mg tablet extended release 24 hr Discontinued MG PO December 19, 2024 12:00am December 19, 2024 2:42pm doxepin hydrochloride 10 mg oral capsule (1 source) Tricyclic Antidepressant Start: 12-19-2024 End: 12-19-2024 Doxepin 10 mg capsule Discontinued MG PO December 19, 2024 12:00am December 19, 2024 2:43pm 24 hr metFORMIN hydrochloride 500 mg extended release oral tablet (1 source) Biguanide Start: 12-19-2024 End: 12-19-2024 take 1 tablet by mouth every twenty-four hours Metformin 500 mg tablet extended release 24 hr Discontinued MG PO December 19, 2024 12:00am December 19, 2024 2:43pm Problems Active Problems Problem Classification Problem Date [...] Test Name Value Interpretation Reference Range Facility [facility] 02-19-2024 L Specimen: [id number] eceived: 02/20/24 Status: SASHA Baker Num: [id number] Spec Type: Surgical Subm Dr: Esa Everett Tissues: A Endometrium - Curettings (EMC) Procedures: HE/2, Gross/Micro L4 Age/ Patient Sex Location Account Attending Physician Laura Arias 43/F LABELL [id number] Esa Everett SPEC NUM: [id number] RECD: 02/20/24 STATUS: SASHA FRAIRE NUM: [id number] FELIPE: 02/19/[address]: Esa Everett ENTERED: 02/20/[address] [facility] [address]: Bianca,Lab SPEC TYPE: Surgical DEPT: HERNANDEZ [...] in one cassette labeled A1. CPT Codes 25165 Specimen: [id number] Received: 02/20/24-1338 Status: SASHA Baker Num: [id number] Spec Type: Surgical Subm Dr: Esa Everett Tissues: A Endometrium - Curettings (EMC) Procedures: HE/2, Gross/Micro L4 Patient: Laura Arias [id number] (Continued) Signed (signature on file) Mary Michaels MD 02/23/24 1330 [facility] Covid-19 PCR ([facility])on SARS-CoV-2 (COVID-19) RNA ANKITA+probe Ql (Unsp spec) Detected Critically abnormal NOT DETECTED [facility] Comment on above: Result Comment: This test is not yet zoe roved or cleared by the [place] FDA. When there are no FDA-approved or cleared tests available, and other criteria are met, FDA can make tests available under an emergency access mechanism called an Emergency Use Authorization (EUA). The EUA for this test is supported by the [place] of Health and Human Service's declaration that [...] Performed By: #### C VDTB #### [facility] [address] [place] [address] Dr. Bessie Pro Covid-19 PCR ([facility])on 10-31 SARS-CoV-2 (COVID-19) RNA ANKITA+probe Ql (Unsp spec) Not detected Normal NOT DETECTED [facility] Comment on above: Result Comment: This test is not yet zoe roved or cleared by the [place] FDA. When there are no FDA-approved or cleared tests available, and other criteria are met, FDA can make tests available under an emergency access mechanism called an Emergency Use Authorization (EUA). The EUA for this test is supported by the [place] [employer] of Health and Human Service's (HHS's) declaration [...] Performed By: #### C VDTB #### [facility] [address] [place], [place] [id number] Dr. Bessie Pro CT ABD/PELVIS WO CONon [...] by: RALF BENNETT Date: 2021-08-27 09:54 Normal [facility] Coding Summary.on 05-28-2018 Coding Summary. CODING DATE: 018 FINAL [facility] STATUS: Home (Routine DC) PAYOR: Commercial [...] PROC APC STAT DESCRIPTION DOCTOR NAME DATE 16034 [id number] Kyle Churchill MD 05/25/2018 phagogastroduodenoscopy, flexible, transoral; with biopsy, single or multiple 99530 5311 T Colonoscopy, flexible; Kyle Churchill MD 05/25/2018 diagnostic, including collection of specimen(s) by brushing or washing, when performed (separate procedure) 74313 Anesthesia for combined Kyle Churchill MD 05/25/2018 [...] Deisy Robles Date Saved: 05/28/2018 02:11 pm [facility] Main OR Intraoperative Recor don 05-26-2018 Main OR Intraoperative Record IntraOp Document Type FT Summary Primary Physician: Kyle Churchill MD Finalized Date/Time: 05/26/18 12:57:13 Pt. Name: LAURA ARIAS Clay UgadleB./Sex: 1980 Female Med Rec #: [id number] Physician: Kyle Churchill MD Financial #: [id number] Pt. Type: O Room/Bed: / Admit/Disch: 05/25/18 [...] Shabazz Role Performed Anesthesiologist Surgeon - Primary Mounter Automatic - Primary Trace Clerk Time In 05/25/18 08:02:00 05/25/18 08:02:00 05/25/18 [...] Richa Gonzales CST, Conner Braxton Role Performed Mounter Automatic - Primary Scrub - Primary Time In [...] Antibiotic No Time Out Amira Bermudez, Given Participants Zhao ARGUELLO, Peggy Spencer RN, Gael Crystal RN, Christian [...] Procedure Yes Primary Surgeon Kyle Churchill MD 05/25/18 08:09:00 Stop 05/25/18 08:26:00 Anesthesia Type [...] and tissue Entry 1 Skin Integrity Intact, [place], Warm, and Skin Abnormality No Dry Outcomes [...] RN Patient Status Stable Skin. Condition Intact, [place], Warm, and Dry Airway Maintenance Oxygen in Use? No Outcomes Met? Yes Last Modified By: Venessa Woods RN 05/25/18 07:06:29 Post-Care Text: The patient is free from signs and symptoms of injury related to transfer/transport General Comments: Report given to CLUBHOUSE ATTENDANTYESENIA BIRD RN Medication Administration FT Pre-Care Text: Verifies allergies, administers [...] 05/26/18 12:15 Venessa Woods RN 05/26/18 12:57 [facility] History and Physicalon 05-25 History and Physical Patient: LAURA ARIAS Age: 38 years Sex: Female : 1980 Associated Diagnoses: None Author: Kyle Churchill MD Subjective no changes to H & P [facility] Comment on above: Result Comment: Electronically Signed By : Kyle Churchill MD\.br\Date and Time Signed: 05/25/18 08:33 EDT Inpatient Patient Summaryon 05-25-2018 [facility] Inst[facility] INFORMATION Name: LAURA ARIAS PHYSICIANS Admitting Physician: Kyle Churchill MD Physician: Kyle Churchill MD PCP: Alber Cook MD Diagnosis: Antral gastritis Comment: PATIENT EDUCATION INFORMATIONInstructions:Medicati on Leaflets:Follow up:With: Address: When: Kyle Churchill [employer] [address] [facility] (1) Within 2 weeks MEDICATION LISTComment: [facility] Main OR PACU I Recordon 05-02 Main OR PACU I Record PACU Phase I Document Type FT Summary Primary Physician: Kyle Churchill MD Finalized Date/Time: 05/25/18 09:10:36 Pt. Name: LAURA ARIAS /Sex: 1980 Female Med Rec #: [id number] Physician: Kyle Churchill MD Financial #: [id number] Pt. Type: O Room/Bed: / Admit/Disch: 05/25/18 [...] Signed By: Mary Rodriguez RN 05/25/18 09:10 [facility] Main OR Preoperative Recordo n 05-25-2018 Main OR Preoperative Record Holding Area Document Type FT Summary Primary Physician: Kyle Churchill MD Finalized Date/Time: 05/25/18 07:18:47 Pt. Name: LAURA ARIAS Clay UgaldeB./Sex: 1980 Female Med Rec #: [id number] Physician: Kyle Churchill MD Financial #: [id number] Pt. Type: O Room/Bed: / Admit/Disch: 05/25/18 [...] Signed By: Carla Curry RN 05/25/18 07:18 [facility] Operative Reporton 8 Operative Report Date of [...] Room in good condition.Kyle Churchill M.D.lkrDictated: 05/25/2018 #[id number]: 05/25/2018 #[id number]: Tai Courtney M.D. [facility] Comment on above: Result Comment: Electronically Signed By : Kyle Churchill MDbr\Date and Time Signed: 05/25/18 09:18 EDT Patient Education - Texton 0 05-25-2018 Patient Education - Text [facility] Progress Note-Physicianon Progress Note-Physician Patient: LAURA ARIAS [...] PACU when criteria met. Condition good. Normal [facility] Comment on above: Result Comment: Electronically [...] Results review: No qualifying data available. Plan [place] [employer] Anesthesiologists (ASA) physical status classification: Class II. Anesthetic Preoperative Plan Anesthesia: Monitored anesthesia care and general anesthesia if required.. Anesthetic plan, risks, benefits, and alternatives discussed with the patient and/or family. Pt. and/or family present and agree to proceed as planned.. Discussed the importance of abstaining from tobacco products, and offered counseling if desired.. Normal [facility] Comment on above: Result Comment: Electronically Signed By : Petr Bae JR, DO\Date and Time Signed: 05/24/18 19:59 EDT Vital Signs Date Time Vital Sign Value Performing Clinician Ivan tabor 12-19-2024 14:43-0500 Body height 167.64 cm [facility] 12-19-2024 14:43-0500 Body mass index (BMI) [Ratio] 47.7 kg/m2 [facility] 12-19-2024 14:43-0500 Body temperature 97.9 [degF] [facility] 12-19-2024 14:43-0500 Body weight 133.97 kg [facility] 12-19-2024 14:43-0500 Diastolic blood pressure 76 mm[Hg] [facility] 12-19-2024 14:43-0500 Heart rate 69 /min [facility] 12-19-2024 14:43-0500 Respiratory rate 18 /min [facility] 12-19-2024 14:43-0500 SaO2% (BldA) [Mass fraction] 98 % [facility] 12-19-2024 14:43-0500 Systolic blood pressure 135 mm[Hg] [facility] Encounters Encounter Date Encounter Type Care Provider Facility Start: 12-19-2024 End: 12-19-2024 ambulatory [facility] Work Phone: Start: 12-19-2024 End: 12-19-2024 Patient encounter procedure [facility]onis Work Phone: Start: 02-20-2024 End: 02-20-2024 ambulatory Esa Marguerite Facility:[facility] Start: 02-20-2024 End: 02-20-2024 ambulatory Esa Marguerite Work Phone: [facility] Work Phone: Start: 02-20-2024 End: 02-20-2024 Departed Referred Esa Javiero Work Phone: [facility] Start: 08-08-2022 End: 08-08-[address] IRVIN COOK Facility:[facility] Start: 07-17-2022 End: 07-18-[address] IRVIN COOK Facility:[facility] Start: 11-09-2021 End: 11-09-[address] IRVIN COOK Facility:[facility] Start: 08-27-2021 End: 08-28-[address] IRVIN COOK Facility:[facility] Start: 05-25-2018 End: 05-26-2018 Ambulatory Kyle Churchill [place] P[place] Date Payer Category Payer Self-pay 2018 Private Health Insurance 1980 Unknown [id number] 1980 Unknown [id number] 1980 Unknown [id number] 1980 Unknown [id number] 1958 Private Health Insurance [id number] 1958 Private Health Insurance [id number] Private Health Insurance [facility] Insurance Co [id number] Unknown [id number] Social History Date Type Detail [facility] Work Phone: Start: 1980 Sex Assigned At Female F [facility] Tobacco smoking stat [facility] Unknown if ever smoked [facility] Work Phone: Start: 12-19-2024 Sex Female (finding) [facility] Evaluation note Note Date & Type Note Facility Evaluation note No assessment information availa ble [facility] Work Phone: Summary Purpose Family History No Family History Records FoundNo Family History Records FoundNo Family History Records Found Advance Directives Advance Directive Response Recorded Date/ Time Advance Directives No February 19 1:14pm Advance Directive Response Recorded Date/ Time Advance Directives No February 19 12:14pm Chief Complaint and Reason for Visit Chief Complaint Admit Date cough, congestion December 19, 2024 2 :29pm Additional Source Comments INFORMATION SOURCE (unrecogn ized section and content) DATE CREATED AUTHOR 05/28/2018 [facility] DATE CREATED AUTHOR AUTHOR'S ORGANIZ ATION 08/11/2022 [facility] DATE CREATED AUTHOR AUTHOR'S ORGANIZ ATION 02/24/2024 [facility] Care Teams (unrecognized sec tion and content) Team Status: Inactive Member Role Status Dates Esa Everett Attending Provider Active Start: Rita [facility] 2023 End: February 20, 2024 Team Status: Active Member Role Status Dates NON STAFF Primary Care Provider Active Team Status: Inactive Member Role Status Dates Tashia Sullivan APRN Attending Provider Active Start: December 19, 2024 End: December 19, 2024 NON STAFF Primary Care Provider Active Start: December 19, 2024 End: December 19, 2024 Goals (unrecognized section and content) Goals may be documented in a n alternate sectionGoals may be documented in an alternate section FOR RECORDS PERTAINING TO PATIENTS [...] BE BASED ON THE PRIMARY CLINICAL RECORDS. [employer] provides no warranty or guarantee of the accuracy or completeness of information in this document.
--- NOTE | 2025-01-09 23:34 | ECG_ITS ---
The [facility] Test Date: 2025-01-09 Pat Name: LAURA TRUJILLO Department: Room: - Gender: Female [employer]: : 1980 Requested By: IRVIN MARTINEZ Order Number: [id number] Reading MD: IRVIN MARTINEZ Measurements Intervals [place] Rate: 68 P: 34 [place]: 152 QRS: 69 QRSD: 72 T: 40 QT: 386 QTc: 404 Interpretive Statements 1100 Sinus rhythm 9110 normal ECG Compared to ECG 01/27/2024 09:42:24 No significant changes Electronically Signed On 01-10-2025 7:02:01 EST by IRVIN MARTINEZ
--- NOTE | 2025-01-09 23:34 | CT_ITS ---
The [address] [address] Patient Name: LAURA TRUJILLO MRN: [id number] date: 1980 Sex: F Assigned Patient Location: ER Current Patient Location: ER Accession/Order Number: [id number] Exam Date: 01/09/2025 23:59 Report Date: 01/10/2025 01:19 At the request of: EREN MAGANA Procedure: CT abdomen pelvis w con CT OF THE ABDOMEN AND PELVIS WITH CONTRAST: 01/09/2025 11:59 PM EST CLINICAL HISTORY: Right upper quadrant pain. History of gallstones. COMPARISONS: Right upper quadrant ultrasound 04/13/[address] abdomen and pelvis without 07/18/2019. TECHNIQUE: Thin section axial CT images were obtained from the lung bases to the pubis symphysis. This CT exam was performed using one or more of the following dose reduction techniques: Automated exposure control, adjustment of the mA and/or kV according to patient size, or use of iterative reconstruction technique. Thin section coronal and sagittal images were reconstructed from the axial data set. All images were reviewed and interpreted. CONTRAST: Intravenous contrast was administered. Type and amount is documented at the local institution. FINDINGS: LUNG BASES: No consolidation or pleural fluid. LIVER: There is a severe hepatic steatosis with secondary hepatic enlargement. Craniocaudal length of spleen approximately almost 24 cm. No hepatic mass or cyst. Normal portal vein enhancement. GALLBLADDER: Small dependent calcified gallstone measures 4 [address] evidence of cholecystitis. BILIARY TREE: No ductal dilatation. PANCREAS: Normal. SPLEEN: Normal. ADRENALS: Normal. KIDNEYS: Normal, without urolithiasis or hydronephrosis. URINARY BLADDER: Grossly unremarkable. PELVIC STRUCTURES: Bilateral tubal ligation clips. Incidental simple right ovarian follicular cyst measuring 2.5 cm maximum. Physiologic. No follow-up needed. Pelvic structures otherwise negative. No mass or fluid collection. BOWEL: No evidence of obstruction, gross mass, or inflammatory change. There is no significant diverticulosis. There is no evidence of diverticulitis. APPENDIX: No active disease with normal appendix. LYMPH NODES: No pathologically enlarged lymph nodes identified. PERITONEUM: No intraperitoneal free air. No free intraperitoneal fluid. MESENTERY: Unremarkable. RETROPERITONEUM: The retroperitoneum is unremarkable. AORTO ILIAC ARTERIES: Normal in caliber. No dissection. BODY WALL: No body wall mass. OSSEOUS STRUCTURES: Unremarkable. CT/CT abdomen pelvis w con IMPRESSION: 1. No acute abdominal or pelvic pathology. 2. Severe hepatic steatosis with associated hepatomegaly. 3. Tubal ligation clips. Electronically authenticated by: PILAR CALLE Date: 01/10/2025 01:19
--- NOTE | 2025-01-09 23:40 | ED.ABDPAIN1 ---
HPI - Abdominal Pain General Chief Complaint: Abdominal Pain Stated Complaint: ABDOMINAL PAIN Time Seen by Provider: 01/09/25 23:15 Source: patient Mode of arrival: walk-in History of Present Illness HPI narrative: 44-year-old female presents for right upper quadrant abdominal pain. It started last night and seems to come and go. It is now severe. No trauma or fever. Last year she was told she had gallstones on an ultrasound. No fever or injury. Related Data Home Medications ?Medication ?Instructions ?Recorded ?Confirmed diltiazem HCl 180 mg capsule,24 180 mg PO QPM 01/27/24 02/23/24 hr,extended release lisinopril 20 mg tablet 20 mg PO QPM 01/27/24 01/09/25 metformin 500 mg tablet,extended 500 mg PO DAILY 01/27/24 02/23/24 release 24 hr Previous Rx's ?Medication ?Instructions ?Recorded hydrocodone 5 mg-acetaminophen 325 1 tab PO Q4H PRN pain 4 days #16 02/19/24 mg tablet tabs ibuprofen 800 mg tablet 800 mg PO Q8H PRN pain 14 days #40 02/19/24 tabs hydrocodone 5 mg-acetaminophen 325 1 tab PO Q6H PRN pain 7 days #30 01/10/25 mg tablet tabs ondansetron 4 mg disintegrating 4 mg PO Q6H PRN nausea and 01/10/25 tablet vomiting #20 tabs Allergies Allergy/AdvReac Type Severity Reaction Status Date / Time adhesive tape Allergy blistering Verified 01/09/25 23:25 latex Allergy Rash Verified 01/09/25 23:25 simvastatin Allergy body aches Verified 01/09/25 23:25 Review of Systems ROS Narrative A ten point review of systems is negative except as noted above. [facility] Medical History (Updated 01/10/25 @ 01:35 by Khris Womack MD) Methylenetetrahydrofolate reductase (MTHFR) deficiency ?E72.12 - Methylenetetrahydrofolate reductase deficiency (ICD-10) Thrombophilia ?D68.59 - Other primary thrombophilia (ICD-10) Hernia ?K46.9 - Unspecified abdominal hernia without obstruction or gangrene (ICD-10) Irregular periods/menstrual cycles ?N92.6 - Irregular menstruation, unspecified (ICD-10) Request for sterilization ?Z30.2 - Encounter for sterilization (ICD-10) Pelvic pain ?R10.2 - Pelvic and perineal pain (ICD-10) MTHFR gene mutation ?Z15.89 - Genetic susceptibility to other disease (ICD-10) Panic attacks ?F41.0 - Panic disorder [episodic paroxysmal anxiety] (ICD-10) Depression ?F32.A - Depression, unspecified (ICD-10) Anxiety ?F41.9 - Anxiety disorder, unspecified (ICD-10) COVID-19 (11/09/23) ?U07.1 - COVID-19 (ICD-10) Electronic cigarette use ?Z78.9 - Other specified health status (ICD-10) Pneumonia ?J18.9 - Pneumonia, unspecified organism (ICD-10) Migraine ?G43.909 - Migraine, unspecified, not intractable, without status migrainosus (ICD-10) IBS (irritable bowel syndrome) ?K58.9 - Irritable bowel syndrome without diarrhea (ICD-10) Heartburn ?R12 - Heartburn (ICD-10) GERD (gastroesophageal reflux disease) ?K21.9 - Gastro-esophageal reflux disease without esophagitis (ICD-10) Anemia ?D64.9 - Anemia, unspecified (ICD-10) PVC's (premature ventricular contractions) ?I49.3 - Ventricular premature depolarization (ICD-10) High cholesterol ?E78.00 - Pure hypercholesterolemia, unspecified (ICD-10) Hypertension ?I10 - Essential (primary) hypertension (ICD-10) Metabolic syndrome ?E88.810 - Metabolic syndrome (ICD-10) PCOS (polycystic ovarian syndrome) ?E28.2 - Polycystic ovarian syndrome (ICD-10) Elevated hemoglobin A1c ?R73.09 - Other abnormal glucose (ICD-10) Ovarian cyst ?N83.209 - Unspecified ovarian cyst, unspecified side (ICD-10) Surgical History (Updated 02/16/24 @ 11:07 by Dina Guevara) History of esophagogastroduodenoscopy (EGD) ?Z98.890 - Other specified postprocedural states (ICD-10) History of colonoscopy ?Z98.890 - Other specified postprocedural states (ICD-10) History of wisdom tooth extraction ?K08.409 - Partial loss of teeth, unspecified cause, unspecified class (ICD-10) History of arthroscopy of knee ?Z98.890 - Other specified postprocedural states (ICD-10) History of laparoscopy ?Z98.890 - Other specified postprocedural states (ICD-10) History of dilation and curettage ?Z98.890 - Other specified postprocedural states (ICD-10) History of section ?Z98.891 - History of uterine scar from previous surgery (ICD-10) History of tubal ligation ?Z98.51 - Tubal ligation status (ICD-10) Family History (Updated 01/27/24 @ 09:26 by Josselin Shannon NP) Other Family history of colon cancer Family history of diabetes mellitus Family history of heart disease Family history of hypertension Family history of stroke Heart failure Liver failure Social History (Updated 01/27/24 @ 09:17 by Josselin Shannon NP) Within the past year, how often did you have a drink containing alcohol: monthly or less Do you use any of these nicotine containing products: vaping products Non-prescribed substance use: denies use 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 General: The patient appears uncomfortable and in no acute respiratory distress Skin: Warm, dry, no pallor noted. There is no rash noted. Head: Normocephalic, atraumatic Eye: Normal conjunctiva, no drainage Ears, Nose, Mouth, and Throat: oral mucosa is moist. Nares patent. Cardiovascular: Regular Rate and Rhythm, not tachycardic Respiratory: Patient is in no distress, no accessory muscle use, lungs are clear to auscultation, no wheezing, rales or rhonchi Back: non-tender GI: Obese and nondistended. She has tenderness in the right upper quadrant, no tenderness elsewhere. Musculoskeletal: The patient has no evidence of calf tenderness, no pitting edema, symmetrical pulses noted bilaterally Neurological: A&O, normal speech Psychiatric: Cooperative Constitutional Vital Signs, click to edit/add: Last Vital Signs Temp 98 F 01/09/25 23:21 Pulse 76 01/09/25 23:21 Resp 20 01/09/25 23:21 BP 150/77 H 01/09/25 23:21 Pulse Ox 97 01/09/25 23:21 O2 Del Method Room Air 01/09/25 23:21 Course Vital Signs Vital signs: Vital Signs Temperature 98 F 01/09/25 23:21 Pulse Rate 76 01/09/25 23:21 Respiratory Rate 20 01/09/25 23:21 Blood Pressure 150/77 H 01/09/25 23:21 Pulse Oximetry 97 01/09/25 23:21 Oxygen Delivery Method Room Air 01/09/25 23:21 Temperature 98 F 01/09/25 23:21 Pulse Rate 76 01/09/25 23:21 Respiratory Rate 20 01/09/25 23:21 Blood Pressure 150/77 H 01/09/25 23:21 Pulse Oximetry 97 01/09/25 23:21 Oxygen Delivery Method Room Air 01/09/25 23:21 MDM - Abdominal Pain MDM Narrative Medical decision making narrative: Gallstone is identified on the CAT scan, no evidence of acute cholecystitis. Blood work also normal, no evidence of hepatitis or pancreatitis. Her pain is under control now and she is discharged home with a prescription for [place] and Zofran and referral to general surgery. Treatment diagnosis and follow-up were discussed with the patient. Differential Diagnosis Differential diagnosis: Likely abdominal pain, acute appendicitis, calculus of kidney, constipation, diverticulitis, gastroenteritis and pancreatitis Lab Data Attestation: I reviewed the patient's lab results. Labs: Lab Results 01/09/25 Range/Units 23:37 WBC 15.8 H (4.0-11.0) 10^3/uL RBC 4.23 (4.20-5.40) 10^6/uL Hgb 11.4 L (12.0-16.0) g/dL Hct 36.5 (36.0-48.0) % MCV 86.3 (81.0-99.0) fL MCH 27.0 (26.7-34.0) pg MCHC 31.2 (29.9-35.2) g/dL RDW 14.4 (11.0-15.0) % Plt Count 386 (150-450) 10^3/uL MPV 9.1 L (9.5-13.5) fL Neut % (Auto) 68.5 (43.0-75.0) % Lymph % (Auto) 19.4 L (20.5-60.0) % Rock % (Auto) 8.7 (1.7-12.0) % Eos % (Auto) 2.6 (0.9-7.0) % Baso % (Auto) 0.2 (0.2-2.0) % Neut # (Auto) 10.8 H (1.4-6.5) 10^3/uL Lymph # (Auto) 3.1 (1.2-3.8) 10^3/uL Rock # (Auto) 1.4 H (0.3-0.8) 10^3/uL Eos # (Auto) 0.4 (0.0-0.7) 10^3/uL Baso # (Auto) 0.0 (0.0-0.1) 10^3/uL Abs Immat Gran (auto) 0.10 H (0.00-0.03) 10^3/uL Imm/Tot Granulo (auto) 0.6 H (0.0-0.5) % Sodium 140 (136-145) mmol/L Potassium 3.7 (3.5-5.1) mmol/L Chloride 102 (98-107) mmol/L Carbon Dioxide 26.0 (21.0-32.0) mmol/L Anion Gap 15.7 BUN 8.0 (7.0-18.0) mg/dL Creatinine 0.86 (0.55-1.02) mg/dL Est GFR ( Amer) >60 (>=60 mL/min/1.73m^2) Est GFR (Non-Af Amer) >60 (>=60 mL/min/1.73m^2) BUN/Creatinine Ratio 9.3 Glucose 128 H (74-106) mg/dL Calcium 8.9 (8.5-10.1) mg/dL Total Bilirubin 0.3 (0.2-1.0) mg/dL Direct Bilirubin 0.1 (0.0-0.2) mg/dL AST 42 H (15-37) U/L ALT 72 H (14-59) U/L Alkaline Phosphatase 104 (46-116) U/L Total Protein 7.2 (6.4-8.2) g/dL Albumin 3.2 L (3.4-5.0) g/dL Globulin 4.0 g/dL Albumin/Globulin Ratio 0.8 Amylase 30 (25-115) U/L Lipase 30.0 (16.0-77.0) U/L Serum HCG, Qual Negative (NEGATIVE) Imaging Data CT scan - abdomen: Radiologist's impression: ITS Impressions Abdomen/Pelvis CT 01/09/25 23:34 IMPRESSION: 1. No acute abdominal or pelvic pathology. 2. Severe hepatic steatosis with associated hepatomegaly. 3. Tubal ligation clips. Electronically authenticated by: PILAR CALLE Date: 01/10/2025 01:19 ECG Data Attestation: I personally reviewed and interpreted this ECG as follows: (EKG on my interpretation shows normal sinus rhythm with rate of 68 and no acute change.) Discharge Plan Discharge Chief Complaint: Abdominal Pain Clinical Impression: Cholelithiasis, Biliary colic Patient Disposition: Home, Self-Care Time of Disposition Decision: 01:35 Condition: Good Mode of Transportation: Private Vehicle Prescriptions / Home Meds: New hydrocodone-acetaminophen 5-325 mg tablet 1 tab PO Q6H PRN (Reason: pain) 7 Days Qty: 30 0RF ondansetron 4 mg tablet,disintegrating 4 mg PO Q6H PRN (Reason: nausea and vomiting) Qty: 20 0RF No Action diltiazem HCl 180 mg capsule,extended release 24 hr 180 mg PO QPM lisinopril 20 mg tablet 20 mg PO QPM metformin 500 mg tablet extended release 24 hr 500 mg PO DAILY ibuprofen 800 mg tablet 800 mg PO Q8H PRN (Reason: pain) 14 Days Qty: 40 0RF hydrocodone-acetaminophen 5-325 mg tablet 1 tab PO Q4H PRN (Reason: pain) 4 Days Qty: 16 0RF Print Language: Turkish Instructions: Biliary Colic (ED), Gallstones (ED) Referrals: Isac Cook MD [Primary Care Provider] - 1 week Kyle Valdez MD [Physician] - 1 week Kyle Churchill MD [Physician] - 1 week
[2025-01-09 23:46] LABS: Basophils Percent Auto 0.2 % (0.2-2.0); Eosinophils Absolute Auto 0.4 10^3/uL (0.0-0.7); Eosinophils Percent Auto 2.6 % (0.9-7.0); Hematocrit 36.5 % (36.0-48.0); Hemoglobin 11.4 g/dL (12.0-16.0); Immature Granulocytes Pct Auto 0.6 % (0.0-0.5); Lymphocytes Absolute Auto 3.1 10^3/uL (1.2-3.8); Lymphocytes Percent Auto 19.4 % (20.5-60.0); Mean Corpuscular HGB Conc 31.2 g/dL (29.9-35.2); Mean Corpuscular Volume 86.3 fL (81.0-99.0); Mean Platelet Volume 9.1 fL (9.5-13.5); Monocytes Absolute Auto 1.4 10^3/uL (0.3-0.8); Monocytes Percent Auto 8.7 % (1.7-12.0); Neutrophils Absolute Auto 10.8 10^3/uL (1.4-6.5); Neutrophils Percent Auto 68.5 % (43.0-75.0); Platelet Count 386 10^3/uL (150-450); Red Blood Count 4.23 10^6/uL (4.20-5.40); Red Cell Distribution Width 14.4 % (11.0-15.0); White Blood Count 15.8 10^3/uL (4.0-11.0)
[2025-01-09] MEDS: ONDANSETRON PF 4 MG/2 ML VIAL IV (23:46)
[2025-01-09] MEDS: MORPHINE SULFATE 4 MG/ML VIAL IV (23:46)
[2025-01-10 00:03] LABS: Alanine Aminotransferase 72 U/L (14-59); Albumin Globulin Ratio 0.8; Albumin Level 3.2 g/dL (3.4-5.0); Alkaline Phosphatase 104 U/L (46-116); Amylase 30 U/L (25-115); Anion Gap 15.7; Aspartate Amino Transferase 42 U/L (15-37); BUN Creatinine Ratio 9.3; Bilirubin Direct 0.1 mg/dL (0.0-0.2); Bilirubin Total 0.3 mg/dL (0.2-1.0); Calcium 8.9 mg/dL (8.5-10.1); Chloride 102 mmol/L (98-107); Estimated GFR (African America >60 (>=60 mL/min/1.73m^2); Estimated GFR (Non-African Ame >60 (>=60 mL/min/1.73m^2); Glucose 128 mg/dL (74-106); Potassium 3.7 mmol/L (3.5-5.1); Sodium 140 mmol/L (136-145); Total Protein 7.2 g/dL (6.4-8.2)
[2025-01-10 00:09] LABS: HCG Qualitative NEGATIVE (NEGATIVE); Internal Control Within Normal Limits
== END 2025-01-10 01:57 | disposition home or self-care (01) ==
PROVIDERS: Emergency Provider Emergency Medicine; PCP Family Medicine
DX: K80.70 Calculus of gallbladder and bile duct without cholecystitis without obstruction (principal); Z98.51 Tubal ligation status; F17.290 Nicotine dependence, other tobacco product, uncomplicated
CPT/HCPCS: 36415; 74177; 80048; 80076; 82150; 83690; 84703; 85025; 93005; 96374; 96375; 99285; J2270; J2405; Q9967

== ENCOUNTER 2025-01-15 12:09 | Outpatient (OUT) | payer OTHER, SELFPAY ==
--- OUTSIDE RECORDS SUMMARY | 2025-01-15 12:12 | XMS_ITS | CCD ---
Author Organization [facility] Care Team Providers Care [employer] Name Role Phone MICHELLE, DR BRYAN Admitting Unavailable MICHELLE, DR [...] Everett Attending Unavailable Esa Everett Admitting Unavailable Kyle SIERRA Attending Unavailable Allergies Allergy Classification Reported Allergen(s) Allergy Type Date of Onset Reaction(s) Facility (1 source) Adhesive bandage; Translations: [Adhesive Bandage] Propensity to adverse reactions (disorder) [facility] (1 source) Latex; Translations: [Latex] Propensity to adverse reactions (disorder) [facility] (1 source) Simvastatin; Translations: [simvastatin] Drug Allergy [facility] Medications Current Medications Medication Drug Class(es) Dates Sig (Normalized) Sig (Original) [id number] 200 actuat albuterol 0.09 mg/actuat metered dose [...] 250 mg tablet Active 0 PO .COMPLEX 6 December 19, 2024 12:00am For 250 mg [...] mg tablet Active 20 MG PO .COMPLEX 10 December 19, 2024 12:00am Take 2 tabs [...] Translations: [CONTACT W/AND (SUSP) EXPOS COVID-19] Onset: 12-16-2021 Viral infection (1 source) COVID-19; Translations: [COVID-19] [...] Test Name Value Interpretation Reference Range Facility Ambulatory Visit Summaryon 0 01-14-2025 Ambulatory Visit Summary Ambulatory Visit Summary LAURA ARIAS :1980 Visit Date:01/14/2025 Ambulatory Visit Instructions Your Diagnosis Diarrhea Abdominal pain, bilateral upper quadrant Epigastric pain Nausea Left upper quadrant pain Your Care Team Attending Physician - MARIELA ARGUELLO, Kyle Larry Primary Care Physician - Irvin Cook MD This Is Your Medications List Contact prescribing physician if questions or concerns hyoscyamine (hyoscyamine 0.125 mg sublingual Tab) lisinopril (lisinopril 20 mg Tab) ondansetron (ondansetron 4 mg Dis Tab) Procedures Performed Colonoscopy (05/2018), EGD - esophagogastroduodenoscopy (05/2018), section, section, section, Dilation and curettage, Dilation and curettage, Extraction of wisdom tooth, Laparoscopy, Meniscal repair, Tubal ligation. Discharge Vitals Heart Rate (Peripheral) 73 Respiratory Rate 16 Blood Pressure 145/87 Height 167 cm Height 66 in Weight 131.8 kg Weight 290.569 lb BMI 47.26 Medications What How Much When Instructions Unchanged hyoscyamine (hyoscyamine 0.125 mg sublingual Tab) 1 Tablets Sublingual Every 6 hours as needed for Pain Contact prescribing physician if questions or concerns Unchanged lisinopril (lisinopril 20 mg Tab) 1 Tablets By Mouth Every day Contact prescribing physician if questions or concerns Unchanged ondansetron (ondansetron 4 mg Dis Tab) 1 Tablets By Mouth Every 6 hours as needed for Nausea/Vomiting Contact prescribing physician if questions or concerns Allergies Adhesive Bandage (Blister) Latex (Rash) simvastatin (Myalgia) Problems Ongoing - Any problem that you are currently receiving treatment for. Abdominal pain, bilateral upper quadrant Anxiety BMI 45.0-49.9, adult Cholelithiasis Class 3 obesity Depressive disorder Diarrhea Epigastric pain Gastroesophageal reflux disease Hepatic steatosis Hepatomegaly Hiatal hernia Hypercholesterolemia Hypertension Metabolic syndrome X Migraine MTHFR mutation Nausea Polycystic ovary syndrome PVC's (premature ventricular contractions) Thrombophilia Patient Survey You may receive a survey via text or e-mail asking about your office visit. Please share your experience with us by completing your survey. We appreciate your feedback and thank you for choosing us for your care. Normal [facility] 02-19-2024 L Specimen: [id number] eceived: 02/20/24 Status: SASHA Baker Num: [id number] Spec Type: Surgical Subm Dr: Esa Everett Tissues: A Endometrium - Curettings (EMC) Procedures: HE/2, Gross/Micro L4 Age/ Patient Sex Location Account Attending Physician Laura Arias 43/F LABELL [id number] Esa Everett SPEC NUM: [id number] RECD: 02/20/24 STATUS: SASHA BAKER NUM: [id number] FELIPE: 02/19/[address]: Esa Everett ENTERED: 02/20/24-[address] [facility] [address]: Bianca,Lab SPEC TYPE: Surgical DEPT: [...] in one cassette labeled A1. CPT Codes 89606 -- -- Specimen: [id number] Received: 02/20/24-1338 Status: SASHA Baker Num: [id number] Spec Type: Surgical Subm Dr: Esa Everett Tissues: A Endometrium - Curettings (EMC) Procedures: HE/2, Gross/Micro L4 -- Patient: Laura Arias [id number] (Continued) -- Signed (signature on file) aMry Michaels MD 02/23/24 1330 [facility] Covid-19 PCR ([facility])on SARS-CoV-2 (COVID-19) RNA ANKITA+probe Ql (Unsp spec) Detected Critically abnormal NOT DETECTED [facility] Comment on above: Result Comment: This test is not yet zoe roved or cleared by the [place] FDA. When there are no FDA-approved or cleared tests available, and other criteria are met, FDA can make tests available under an emergency access mechanism called an Emergency Use Authorization (EUA). The EUA for this test is supported by the [place] of Health and Human Service's declaration that [...] used). Performed By: #### C VDTB #### [facility] [address] [place] [address] Dr. Bessie Pro Covid-19 PCR ([facility])on 10-31 SARS-CoV-2 (COVID-19) RNA ANKITA+probe Ql (Unsp spec) Not detected Normal NOT DETECTED [facility] Comment on above: Result Comment: This test is not yet zoe roved or cleared by the [place] FDA. When there are no FDA-approved or cleared tests available, and other criteria are met, FDA can make tests available under an emergency access mechanism called an Emergency Use Authorization (EUA). The EUA for this test is supported by the [place] of Health and Human Service's (HHS's) declaration [...] consistent with SARS-CoV-2. Performed By: #### C VDTBH #### [facility] [address] [place] [address] ABD/PELVIS WO CONon [...] by: RALF BENNETT Date: 2021-08-27 09:54 Normal [facility] Vital Signs Date Time Vital Sign Value Performing Clinician Ivan tabor 12-19-2024 14:43-0500 Body height 167.64 cm [facility] 12-19-2024 14:43-0500 Body mass index (BMI) [Ratio] 47.7 kg/m2 [facility] 12-19-2024 14:43-0500 Body temperature 97.9 [degF] [facility] 12-19-2024 14:43-0500 Body weight 133.97 kg [facility] 12-19-2024 14:43-0500 Diastolic blood pressure 76 mm[Hg] [facility] 12-19-2024 14:43-0500 Heart rate 69 /min [facility] 12-19-2024 14:43-0500 Respiratory rate 18 /min [facility] 12-19-2024 14:43-0500 SaO2% (BldA) [Mass fraction] 98 % [facility] 12-19-2024 14:43-0500 Systolic blood pressure 135 mm[Hg] [facility] Encounters Encounter Date Encounter Type Care Provider Facility Start: 01-14-2025 ambulatory Kyle SIERRA Facility :[facility] Start: 01-10-2025 ambulatory Kyle SIERRA Facility:[facility] Start: 12-19-2024 End: 12-19-2024 ambulatory [facility] Work Phone: Start: 12-19-2024 End: 12-19-2024 Patient encounter procedure [facility] Work Phone: Start: 02-20-2024 End: 02-20-2024 ambulatory Esa Marguerite Facility:[facility] Start: 02-20-2024 End: 02-20-2024 ambulatory Esa Cotozio Work Phone: [facility] Work Phone: Start: 02-20-2024 End: 02-20-2024 Departed Referred Esa Javiero Work Phone: [facility] Start: 08-08-2022 End: 08-08-[address] IRVIN COOK Facility:[facility] Start: 07-17-2022 End: 07-18-[address] IRVIN COOK Facility:[facility] Start: 11-09-2021 End: 11-09-[address] IRVIN COOK Facility:[facility] Start: 08-27-2021 End: 08-28-[address] IRVIN COOK Facility:[facility] Payers Date Payer Category Payer Private Health Insurance [id number] 2024 Self-pay 2018 Private Health Insurance 1980 Unknown [id number] [id number] [id number] 1980 Unknown [id number] 2.16.84 [id number] 1980 Unknown [id number] 2.16.84 [id number] 1980 Unknown [id number] 2.16.84 [id number] 1980 Unknown [id number] 2.16.8 [id number] 1980 Unknown [id number] 2.16.8 [id number] 1958 Private Health Insurance [id number] 1958 Private Health Insurance [id number] Unknown [id number] 2.16.8 [id number] Social History Date Type Detail Facility [facility] if [facility] smoked [facility] Work Phone: Start: 1980 Sex Assigned At Female F [facility] Tobacco smoking stat [facility] Unknown if ever smoked [facility] Work Phone: Start: 12-19-2024 Sex Female (finding) [facility] Clinical Note 01-14-2025 Note Date & Type Note Facility 01-14-2025 Note General Surgery Offi ce/Clinic Note Chief Complaint consultation for abdominal pain HPI Staff 44 year old female presents on consultation from [facility] for abdominal pain. Presented to ED 01/09 with complaint of RUQ pain that started the night prior. CT abdomen/pelvis completed at this time with 1 small gallbladder stone, hepatic steatosis and hepatomegaly. Reports pain has resolved. She is currently following a bland diet. Reports intermittent nausea for which is taking Zofran. Denies vomiting. Verbalized she has been experiencing diarrhea since start of abdominal pain. Reports several watery stools per day. Denies rectal pain or bleeding. ABD US completed 03/2024 with cholelithiasis. Lats EGD and colonoscopy completed 05/2018 with hiatal hernia, chronic gastritis and normal colonoscopy. Father with history of colon cancer, diagnosed age 70's. History of Present Illness 44 yo female with h/o htn, hypercholesterolemia, thrombophilia, GERD, migraines, PCOS, PVCs, hepatic steatosis, referred for abd pain/cholelithiasis; patient was in [facility] ED 5 days ago for upper abd pain; patient reports that she developed upper abd pain 1 week prior to presentation to ED, it improved, but was intermittent, also developed severe watery diarrhea, no blood, worse with eating; frequent nausea, worse if she doesn't eat; no emesis, no fevers or chills; no jaundice or pancreatitis; patient had pneumonia in October, requiring 3 different courses of antibiotics, just finished 1 week prior to these symptoms; work up in ED revealed leukocytosis, normal lfts; abd/pelvic ct scan with severe hepatic steatosis, small gallstone in infundibulum, no obstruction or inflammation of gallbladder, no ductal dilation. patient now denies pain, still sore, and with frequent watery diarrhea; eating low fat diet; PCP ordered labs and GB US for tomorrow. abd operations significant for x 3; tubal ligation; laparoscopy. EGD & colonoscopy in 2018 with hiatal hernia and gastritis; normal colonoscopy. Review of Systems PHQ Score Initial Depression Screen Score: 0 SCORE ROS - Provider Constitutional: no fever, no sweats, no weight loss. Eyes: no glasses, no blurred vision, no visual loss. ENMT: no dentures, no hoarseness, no swallowing difficulties, no hearing loss, no ear infection(s), no nose bleeds. Cardiovascular: normal blood pressure, no chest pain, regular heartbeat, no heart murmur. Respiratory: no shortness of breath, no cough, no asthma, no wheezing. Gastrointestinal: no nausea, no vomiting, no diarrhea, no constipation, no blood in stool, no change in bowel habits, no abdominal pain, no hepatitis. Genitourinary: no kidney stones, no urine infection, no dysuria. Musculoskeletal: no pain, no weakness. Skin: no changing moles, no rash, no skin lumps. Neurologic: no seizures, no epilepsy, no headache. Psychiatric: no emotional or psychiatric problem. Heme/Lymph: no bleeding problems, no anemia, no blood clots, no transfusions. Allergy/Immunologic: no swollen lymph nodes/glands, no IV drug abuse. Other: Additional ROS info: Except as noted in the above Review of Systems and in the History of Present Illness, all other systems have been reviewed and are negative or noncontributory. Physical Exam Vitals & Measurements HR: 73(Peripheral) RR: 16 BP: 145/87 HT: 66 in HT: 167 cm WT: 131.8 kg WT: 290.569 lb BMI: 47.26 HEENT: normal conjunctiva, sclera clear, no scleral icterus, EOM intact, PERRLA, oral mucosa moist without lesions. Neck: trachea midline, no mass, symmetric, no thyromegaly or nodules, no adenopathy Respiratory: lungs CTA, respirations non labored. Cardiovascular: regular rate and rhythm, no murmur, no pedal edema or varicosities. Gastrointestinal: obese, soft, non distended, mild tenderness, epigastrium and bilateral upper abd, no peritoneal signs no masses, no palpable hernias, diastasis recti no, no hepatosplenomegaly; normal bs Lymphatic: no cervical adenopathy, no surpraclavicular adenopathy. Musculoskeletal: normal gait, digits and nails without infection, nodes, cyanosis, clubbing. Skin: no rashes, no lesions, no ulcers, no subcutaneous nodules, induration. Psychiatric/Neuro: oriented to time, place, person, judgement normal, affect appropriate for age, insight intact, no focal deficits. Tests: labs reviewed, x-rays reviewed, review of old records completed , _ surgical options, risks, and possible complications with patient. Assessment/Plan 1. Diarrhea (R19.7: Diarrhea, unspecified) possible gastroenteritis, verses antibiotic-associated diarrhea, or C diff; check stool studies; patient has repeat labs and RUQ US scheduled for tomorrow at [facility]; await results; continue low fat diet; no evidence of cholecystitis on abd/pelvic ct scan. call with problems/questions. Ordered: Clostridium Difficile PCR Enteric Panel by PCR O & P Exam, Routine 2. Abdominal pain, bilateral upper quadrant (R10.11: Right upper quadrant pain) see # 1 O (more content not included)... [facility] Comment on above: Result Comment: Elec tronically Signed By: MARIELA ARGUELLO, Kyle Dimas\Date and Time Signed: 01/14/25 11:24 EST Evaluation note Note Date & Type Note Facility Evaluation note No assessment information availa [facility] Work Phone: Summary Purpose Family History No Family History Records FoundNo Family History Records FoundNo Family History Records Found Advance Directives No Advanced Directives Records Found Advance Directive Response Recorded Date/ Time Advance Directives No February 19 024 1:14pm Advance Directive Response Recorded Date/ Time Advance Directives No February 19 024 12:14pm Chief Complaint and Reason for Visit Chief Complaint Admit Date cough, congestion December 19, 2024 2 :29pm Additional Source Comments INFORMATION SOURCE (unrecogn ized section and content) DATE CREATED AUTHOR 08/11/2022 [facility] DATE CREATED AUTHOR AUTHOR'S ORGANIZ ATION 02/24/2024 [facility] DATE CREATED AUTHOR AUTHOR'S ORGANIZ ATION 01/14/2025 [facility] Care Teams (unrecognized sec tion and content) Team Status: Inactive Member Role Status Dates Esa Everett Attending Provider Active Start: [facility] 2023 End: February 20, 2024 Team Status: [...] BE BASED ON THE PRIMARY CLINICAL RECORDS. [facility] [employer] provides no warranty or guarantee of the accuracy or completeness of information in this document.
[2025-01-15 12:49] LABS: Chol HDL Ratio 6.9; Cholesterol 233 mg/dL (<=200); HDL Cholesterol 34 mg/dL (40-60); Triglycerides 215 mg/dL (<=150)
--- NOTE | 2025-01-15 14:47 | US_ITS ---
The [address] [address] Patient Name: LAURA TRUJILLO MRN: [id number] date: 1980 Sex: F Assigned Patient Location: [place] Current Patient Location: Accession/Order Number: [id number] Exam Date: 01/15/2025 14:49 Report Date: 01/17/2025 15:33 At the request of: IRVIN MARTINEZ Procedure: US right upper quadrant EXAM: US right upper quadrant HISTORY: Right upper quadrant pain COMPARISON: CT abdomen and pelvis 01/10/2025 TECHNIQUE: Ultrasound of the right upper quadrant abdomen. FINDINGS: Liver: Diffusely echogenic and enlarged measuring 24 centimeters. No intrahepatic biliary ductal dilatation. Main portal vein appears patent with appropriate directional flow. Gallbladder: Echogenic foci suggesting gallstones. No pericholecystic fluid or wall thickening Common bile duct: Normal in diameter, measuring 0.25cm. Right kidney: Normal in size and echogenicity measuring 12 cm. In length No hydronephrosis or renal calculus. Miscellaneous:Sonographic Dorsey sign is noted to be positive. US/US right upper quadrant IMPRESSION: Gallstones without pericholecystic fluid or wall thickening. Sonographic Dorsey's sign is noted to be positive. Equivocal for acute cholecystitis. Correlate with LFTs and consider hepatobiliary scintigraphy as clinically warranted. Hepatomegaly with steatosis. Electronically authenticated by: LUKAS ACEVEDO Date: 01/17/2025 15:33
[2025-01-16 14:42] LABS: C. Difficile PCR NEGATIVE
[2025-01-18 15:09] LABS: Ova + Parasite Exam Final report (.)
== END 2025-01-15 12:10 | disposition home or self-care (01) ==
LOC: US 12:09
PROVIDERS: PCP Family Medicine; Visit Provider Family Medicine
DX: R10.11 Right upper quadrant pain (principal); K80.20 Calculus of gallbladder without cholecystitis without obstruction; R16.0 Hepatomegaly, not elsewhere classified
CPT/HCPCS: 36415; 76705; 80061; 87045; 87046; 87177; 87209; 87427; 87493

== ENCOUNTER 2025-04-02 08:28 | Outpatient (OUT) | payer OTHER, SELFPAY ==
[2025-04-02 08:50] LABS: Basophils Absolute Auto 0.1 10^3/uL (0.0-0.1); Basophils Percent Auto 0.6 % (0.2-2.0); Eosinophils Absolute Auto 0.1 10^3/uL (0.0-0.7); Eosinophils Percent Auto 1.4 % (0.9-7.0); Hematocrit 34.9 % (36.0-48.0); Hemoglobin 11.1 g/dL (12.0-16.0); Immature Granulocytes Abs Auto 0.04 10^3/uL (0.00-0.03); Immature Granulocytes Pct Auto 0.4 % (0.0-0.5); Lymphocytes Absolute Auto 1.9 10^3/uL (1.2-3.8); Lymphocytes Percent Auto 20.4 % (20.5-60.0); Mean Corpuscular HGB Conc 31.8 g/dL (29.9-35.2); Mean Corpuscular Hemoglobin 27.5 pg (26.7-34.0); Mean Corpuscular Volume 86.6 fL (81.0-99.0); Mean Platelet Volume 9.1 fL (9.5-13.5); Monocytes Absolute Auto 0.7 10^3/uL (0.3-0.8); Monocytes Percent Auto 7.5 % (1.7-12.0); Neutrophils Absolute Auto 6.3 10^3/uL (1.4-6.5); Neutrophils Percent Auto 69.7 % (43.0-75.0); Platelet Count 402 10^3/uL (150-450); Red Blood Count 4.03 10^6/uL (4.20-5.40); Red Cell Distribution Width 13.4 % (11.0-15.0); White Blood Count 9.1 10^3/uL (4.0-11.0)
[2025-04-02 08:59] LABS: Ammonia 18 umol/L (11-32)
[2025-04-02 09:05] LABS: Partial Thromboplastin Time 30.2 sec (22.3-36.2); Prothrombin Time 10.6 sec (9.0-11.6)
[2025-04-02 09:08] LABS: Estimated Average Glucose 131 mg/dL; Glycohemoglobin A1C 6.2 % (4.5-6.2)
[2025-04-02 09:19] LABS: Alanine Aminotransferase 46 U/L (14-59); Albumin Level 3.3 g/dL (3.4-5.0); Alkaline Phosphatase 104 U/L (46-116); Anion Gap 14.5; Aspartate Amino Transferase 26 U/L (15-37); BUN Creatinine Ratio 12.8; Bilirubin Direct 0.1 mg/dL (0.0-0.2); Bilirubin Total 0.2 mg/dL (0.2-1.0); Calcium 9.2 mg/dL (8.5-10.1); Carbon Dioxide 28.9 mmol/L (21.0-32.0); Chloride 101 mmol/L (98-107); Estimated GFR (African America >60 (>=60 mL/min/1.73m^2); Estimated GFR (Non-African Ame >60 (>=60 mL/min/1.73m^2); Glucose 109 mg/dL (74-106); Potassium 4.4 mmol/L (3.5-5.1); Sodium 140 mmol/L (136-145); Total Protein 7.1 g/dL (6.4-8.2)
[2025-04-02 09:20] LABS: Albumin Globulin Ratio 0.9; Cholesterol 200 mg/dL (<=200); Globulin 3.8 g/dL; HDL Cholesterol 40 mg/dL (40-60); LDL Cholesterol Calculated 133.2 mg/dL; Thyroid Stimulating Hormone 1.458 uIU/mL (0.358-3.740); Triglycerides 134 mg/dL (<=150); VLDL CHOLESTEROL 26.8 mg/dL
[2025-04-03 12:08] LABS: Insulin 22.6 uIU/mL (2.6-24.9)
== END 2025-04-02 08:29 | disposition home or self-care (01) ==
PROVIDERS: PCP Family Medicine; Visit Provider Family Medicine
DX: Z00.00 Encounter for general adult medical examination without abnormal findings (principal); K76.0 Fatty (change of) liver, not elsewhere classified
CPT/HCPCS: 36415; 80053; 80061; 82140; 82248; 83036; 83525; 83540; 84436; 84443; 84481; 85025; 85610; 85730

== ENCOUNTER 2025-04-04 17:05 | Outpatient (REF) | payer OTHER, SELFPAY ==
[2025-04-04 18:55] LABS: Internal Control Within Normal Limits; Occult Blood Negative
== END 2025-04-04 17:06 | disposition home or self-care (01) ==
LOC: LAB 17:05
PROVIDERS: PCP Family Medicine; Visit Provider Family Medicine
DX: Z00.00 Encounter for general adult medical examination without abnormal findings (principal)
CPT/HCPCS: G0328

== ENCOUNTER 2025-08-08 06:51 | Emergency (ER) | payer OTHER, SELFPAY ==
--- OUTSIDE RECORDS SUMMARY | 2025-04-28 11:45 | XMS_ITS ---
Author Organization [facility] in [place] Address [address] [place] [address] Care Team Providers Care Strategy Analyst Name Role Phone Mark Cook Primary Care Provider Allergies No Known Allergies Results Component Value Reference Range Notes UA DIP NONAUTO WO MICRO (810 02) - IN OFFICE (Not yet reviewed by provider) Interpretation: Performing Lab: Notes/Report: COLOR straw CLARITY cloudy GLUCOSE n BILIRUBIN n KETONE n SPECIFIC GRAVITY 1.025 BLOOD 250 PH 5 PROTEIN trace UROBILINOGEN n NITRITE n LEUKOCYTE ESTERASE n REASON FOR VISIT fever for the past 3 1/2 days - went to urgent care and they did urine and sent her home, was told no infection and no blood, Body aches, this AM had low back pain and when urinated the pain went away, No cough, no sinus issues, no vomiting/diarrhea, Has been taking Motrin Medications Medication SIG (Take, Route, Frequency, Duration) Notes Start Date End Date Status Ferrous Sulfate 325 (65 Fe) MG 1 tablet Orally bid for 30 days 04/04/2025 Active Lisinopril 10 MG 1 tablet Orally Once a day Active Glimepiride 2 MG 1 tablet with breakf ast or the first main meal of the day Orally Once a day for 30 days 04/28/2025 Active Cefdinir 300 MG 2 capsule Orally onc e a day for 10 days 04/28/2025 Active Social History Tobacco Use: Social History Observation Description Date Details (start date - stop date) Former Smoker 12/01/2005 - 03/01/2024 Tobacco Control (Standard) Question Answer Notes Tobacco use: Former smoker When did you start smoking? 12/01/2005 When did you stop smoking? 03/01/2024 How long has it been since you last smoked? 1-3 months Vital Signs Temperature 98.4 degrees Fahrenheit 04/28/20 25 Blood pressure systolic 124 mm Hg 04/28/20 25 Blood pressure diastolic 72 mm Hg 025 Height 66 in 04/28/2025 Weight 277.0 lbs 04/28/2025 BMI 44.7 kg/m2 04/28/2025 Encounters Encounter Location Date Provider Diagnosis [facility] [address] [place] [address] 04/28/2025 Mark Hoy Fever R50.9 and Low back pain, unspecified M54.50 Assessments Encounter Date Diagnosis (ICD Code) Assessment Notes Treatment Notes Treatment Clinical Notes Section Notes 04/28/2025 Fever (ICD-10 - R50.9) 04/28/2025 Low back pain, unspecified (ICD-10 - M54.50) Plan Of Treatment Medication Medication Name Sig Start Date Stop Date Notes Glimepiride 2 MG 1 tablet with breakf ast or the first main meal of the day Orally Once a day for 30 days 04/28/2025 Cefdinir 300 MG 2 capsule Orally once a day for 10 days Pending Test Test Name Order Date UA DIP NONAUTO WO MICRO (75977) - IN OFF ICE 04/28/2025 Progress Notes * CASSANDRAMei LDOB:1980 (45 yo F)Acc No.[id number]:04/28/2025 Progress Note Patient: Mei KING Provider: Benedicto Cook (TTC)MD :1980 A ge:45 Y S ex:Female Date:04/28/2025 Address:[address] [place] [address] [id number] Check In:03:20 PM ESTCheck O ut:04:46 PM EST Subjective: * Chief Complaints: * F ever for the past 3 1/2 days - went to urgent care and they did urine and sent her home, was told no infection and no bloodBody aches, this AM had low back pain and when urinated the pain went awayNo cough, no sinus issues, no vomiting/diarrheaHas been taking Motrin * HPI: G eneral: some back pain and beter after urination gen body aches 4 cays maybe sl better today. * ROS: E ENT: hearing changes d enies. v isual changes d enies.?non-healing mouth sores d enies. s wollen glands or neck lumps d enies. h oarseness d enies. s ore throat d enies. d ifficulty swallowing d enies. n ose bleeds d enies. n clovis congestion d enies. e ar ache d enies. e ar discharge?denies. r inging in ears d enies. l ight sensitivity d enies. e ye pain d enies. b lurring d enies. e ye irritation d enies. d ouble vision d enies.?vision loss d enies. G eneral/Constitutional: Sweats: D enies. F atigue d enies. S leep problems d enies. A norexia d enies. M alaise d enies. W eight loss d enies.?Fatigue or Weakness d enies. F ever or Chills d enies. C ardiovascular: Shortness of Breath w/lying flat d enies. L ightheadedness/dizziness d enies. C hest tightness/ heavy pressure d enies. S welling of legs, ankles, or feet d enies. W aking up with shortness of breath d enies. C hest pain denies. P alpitations d enies. W eight gain d enies. R espiratory: Chronic or frequent cough d enies. C oughing up blood?denies. D ifficulty breathing d enies. P roductive cough d enies. S noring?denies. S hortness of breath that awakens from sleep (PND) d enies. C hest pain d enies. S putum production d enies. W heezing d enies. M usculoskeletal: Joint pain d enies. J oint Fluid d enies. B ack pain d enies. K nee pain d enies. N aletha pain d enies. J oint Stiffness d enies. M uscle cramps d enies. W eakness of muscles d enies. A rthritis d enies. M uscle aches d enies. P ain in shoulder(s) d enies. S wollen joints d enies. * Active Problem List R00.2 Palpitations Modified On:04/29/2023 Status:confirmed R07.9 Chest pain Modified On:04/29/2023 Status:confirmed L40.9 Psoriasis Modified On:04/29/2023 Status:confirmed I10 Hypertension Modified On:07/09/2023 Status:confirmed M19.90 Osteoarthritis Modified On:04/29/2023 Status:confirmed F41.9 Anxiety Modified On:04/29/2023 Status:confirmed M54.16 Lumbar radiculopathy Modified On:04/29/2023 Status:confirmed J32.9 Sinusitis Modified On:04/29/2023 Status:confirmed J20.9 Acute bronchitis Modified On:02/25/2024 Status:confirmed K57.32 Diverticulitis large intestine Modified On:04/29/2023 Status:confirmed K52.9 Gastroenteritis Modified On:04/29/2023 Status:confirmed E66.3 Over weight Modified On:04/29/2023 Status:confirmed D50.9 Anemia, iron deficie ncy Modified On:04/29/2023 Status:confirmed G43.109 Ocular migraine Modified On:04/29/2023 Status:confirmed R61 Night sweats Modified On:04/29/2023 Status:confirmed K29.50 Chronic gastritis Modified On:04/29/2023 Status:confirmed R60.0 Ankle edema Modified On:04/29/2023 Status:confirmed H60.90 Otitis external Modified On:04/29/2023 Status:confirmed K44.9 Hernia, hiatal Modified On:04/29/2023U Status:confirmed H81.399 Vertigo, peripheral Modified On:04/29/2023 Status:confirmed R60.0 Edema of leg Modified On:04/29/2023 Status:confirmed U07.1 COVID-19 virus infec tion Modified On:04/29/2023 Status:confirmed G47.00 Insomnia Modified On:04/30/2023 Status:confirmed Z00.00 Well adult Modified On:04/29/2023 Status:confirmed R59.0 Cervical lymphadenop athy Modified On:04/29/2023 Status:confirmed R31.9 Hematuria Modified On:04/30/2023 Status:confirmed B37.31 Yeast vaginitis Modified On:02/25/2024 Status:confirmed G47.30 Sleep apnea Modified On:02/25/2024 Status:confirmed R60.9 Edema Modified On:04/08/2024 Status:confirmed K76.0 Fatty liver Modified On:01/10/2025 Status:confirmed R10.11 Right upper quadrant abdominal pain Modified On:01/13/2025 Status:confirmed * Medical History: * Surgical History: E GD/Colonoscopy 05/2018Right Knee Arthroscopy * Hospitalization/Major Diagno stic Procedure: D enies Past Hospitalization * Family History: F ather: 72 yrs, colon cancer. M other: 79 yrs, Respiratory Distress, congestive heart failure, Hypercholesterolemia, dementia, diagnosed with Diabetes mellitus without mention of complication, type II or unspecified type, not stated as uncontrolled, Unspecified essential hypertension, Unspecified heart disease. B rother(s): alive. S ister(s): alive, depression. Son(s): alive, [employer]. D nikhil(s): alive, Hormone inbalance, attention deficit hyperactivity disorder, oppositional defiant disorder. 1 brother(s) , 2 sister(s) . 1 son(s) , 3 daughter(s) . . * Social History: T obacco Use: T obacco Control (Standard) T obacco use: F ormer smoker W hen did you start smoking? 0 12/01/2005 W hen did you stop smoking? 0 03/01/2024 H ow long has it been since you last smoked??1-3 months * Medications: T akingFerrous Sulfate 325 (65 Fe) MG Tablet Delayed Release 1 tablet Orally bid Lisinopril 10 MG Tablet 1 tablet Orally Once a day Medication List reviewed and reconciled with the patientTaking Ferrous Sulfate 325 (65 Fe) MG Tablet Delayed Release 1 tablet Orally bid Taking Lisinopril 10 MG Tablet 1 tablet Orally Once a day Medication List reviewed and reconciled with the patient * Allergies: N .K.D.A.no[Allergies Verified] Objective: * Vitals: W t:277.0lbs, Ht: 66 in, BP:124/72mm Hg, Temp:98.4F, BMI:44.7Index, Ht-cm: 167.64 cm, Wt-k.65 kg. * Examination: P hysical Exam: GENERAL: w ell developed, well nourished, in no acute distress. HEAD: n ormocephalic/atraumatic. EYES: p upils equal, round and reactive to light, conjunctivae and sclerae normal. EARS: n o deformity or lesion of external ear, canals and TM appear normal bilaterally, TM's intact, not inflamed with normal light reflex, hearing grossly normal to conversational speech. NOSE: n o deformity, discharge, inflammation, or lesions.? MOUTH: m ucous membranes moist, normal oropharynx and posterior pharynx without lesions or exudates, tongue normal, dentition normal. NECK: n aletha supple, no masses or palpable cervical nodes, trachea midline, thyroid without nodules, masses, tenderness, or enlargement. CHEST: n o chest wall deformity, no chest wall tenderness.? LUNGS: n ormal respiratory effort and clear to auscultation, no wheezes, rales, or rhonchi, good air exchange. CARDIO: r egular rate and rhythm, normal S1 and S2, nor murmur, rub, or gallop. PULSES: n ormal capillary refill. ABDOMEN: s oft, non-distended, non-tender, no masses. MUSCULOSKELETAL: n o deformity or scoliosis noted, normal range of motion, joints normal, no erythema, edema, effusion, or ecchymosis. EXTREMITY: n o clubbing, cyanosis, edema, or deformity with normal ROM in both upper and lower bilateral extremities. NEUROLOGIC: g rossly normal. SKIN: n o rashes, ulcerations, or suspicious lesions. LYMPH NODES: n o cervical adenopathy, nodes normal. MENTAL STATUS: a lert and oriented x3, normal mood and affect. Assessment: * Assessment: 1. F ever - R50.9 (Primary) 2 . L ow back pain, unspecified - M54.50 ? Plan: * Treatment: 2. L ow back pain, unspecified L AB: UA DIP NONAUTO WO MICRO (65635) - IN OFFICE (Collection Date & Time - 04/28/2025) * Labs: * L ab: UA DIP NONAUTO WO MICRO (97150) - IN OFFICE (Collection Date & Time - 04/28/2025) Value Reference Range C OLOR straw * C LARITY cloudy * G LUCOSE n * B ILIRUBIN n * K ETONE n * S PECIFIC GRAVITY 1.025 * B LOOD 250 * P H 5 * P ROTEIN trace * U ROBILINOGEN n * N ITRITE n * L EUKOCYTE ESTERASE n * Procedure Codes: 8 1002 URINALYSIS WO MICRO * Preventive Medicine: Screenings/Counseling: B HI ACTION PLAN Above Normal BMI Follow-up D ietary management education, guidance, and counseling * * Sign off status: Completed Visit Status: C HK (Check Out) true * Provider: Benedicto Cook (TTC)MD Date: 0 04/28/2025 Generated for Printi ng/Faxing/eTransmitting on: 0 08/08/2025 07:02 AM EDT History and Physical Notes * HPI (History of Present Illness) Category Sub-Category Detail Notes Category Not es General some back pain and beter after urination gen body aches 4 cays maybe sl better today Examination Category Sub-Category Detail Notes Category Not es Physical Exam GENERAL: well developed, well nourished, in no acute distress HEAD: normocephalic/atraum atic EYES: pupils equal, round and reactive to light, conjunctivae and sclerae normal EARS: no deformity or lesi on of external ear, canals and TM appear normal bilaterally, TM's intact, not inflamed with normal light reflex, hearing grossly normal to conversational speech NOSE: no deformity, discha rge, inflammation, or lesions MOUTH: mucous membranes quinten st, normal oropharynx and posterior pharynx without lesions or exudates, tongue normal, dentition normal NECK: neck supple, no mass es or palpable cervical nodes, trachea midline, thyroid without nodules, masses, tenderness, or enlargement CHEST: no chest wall deform ity, no chest wall tenderness LUNGS: normal respiratory e ffort and clear to auscultation, no wheezes, rales, or rhonchi, good air exchange CARDIO: regular rate and rhy thm, normal S1 and S2, nor murmur, rub, or gallop PULSES: normal capillary ref ill ABDOMEN: soft, non-distended, non-tender, no masses RECTAL: MUSCULOSKELETAL: no deformity or scol iosis noted, normal range of motion, joints normal, no erythema, edema, effusion, or ecchymosis EXTREMITY: no clubbing, cyanosi s, edema, or deformity with normal ROM in both upper and lower bilateral extremities NEUROLOGIC: grossly normal SKIN: no rashes, ulceratio ns, or suspicious lesions LYMPH NODES: no cervical adenopat hy, nodes normal MENTAL STATUS: alert and oriented x 3, normal mood and affect
--- OUTSIDE RECORDS SUMMARY | 2025-04-29 06:05 | XMS_ITS ---
Author Organization [facility] [place] Address [address] [place] [address] Care Team Providers Care Die Fitter Name Role Phone Mark Cook Primary Care Provider [phone] REASON FOR VISIT diabetic meds Medications Medication SIG (Take, Route, Frequency, Duration) Notes Start Date End Date Status metFORMIN HCl 500 MG 1 tablet with a pedro l Orally Once a day for 30 days 04/29/2025 Active [facility] Blood Glucose Test Str - Use 1 strip to check glucose daily DX E11.9 for 90 days 04/29/2025 Active Encounters Encounter Location Date Provider Diagnosis [facility] [address] [place] [address] 04/29/2025 Mark Cook Fever R50.9 Assessments Encounter Date Diagnosis (ICD Code) Assessment Notes Treatment Notes Treatment Clinical Notes Section Notes 04/29/2025 Fever (ICD-10 - R50.9) Plan Of Treatment Medication Medication Name Sig Start Date Stop Date Notes Glimepiride 2 MG 1 tablet with breakf ast or the first main meal of the day Orally Once a day 04/28/2025 metFORMIN HCl 500 MG 1 tablet with a pedro l Orally Once a day for 30 days 04/29/2025 [facility] Blood Glucose Test S tr - Use 1 strip to check glucose daily DX E11.9 for 90 days 04/29/2025 Progress Notes * Mei ARIAS LDOB:1980 (45 yo F)Acc No.[id number]:04/29/2025 Patient: Patricia Mei NAGEL :1980 A ge:45 Y S ex:Female Address:[address] [place] [id number] * Refills Stop Glimepiride Tablet, 2 MG, Orally, 1 tablet with breakfast or the first main meal of the day, Once a day Start metFORMIN HCl Tablet, 500 MG, Orally, 30, 1 tablet with a meal, Once a day, 30 days, Refills=1 Start [facility] Blood Glucose Test Str Strip, -, 100, Use 1 strip to check glucose daily DX E11.9, 90 days, Refills=3 * true * Date: Generated for Elizabeth wright/Pierre/Isabellaitting on: 0 08/08/2025 07:03 AM EDT
--- OUTSIDE RECORDS SUMMARY | 2025-04-29 10:10 | XMS_ITS ---
Author Organization [facility] in [place] Address [address] [place] [address] Care Team Providers Care Tennis Centre Manager Name Role Phone Mark Cook Primary Care Provider REASON FOR VISIT mail order test strips Medications Medication SIG (Take, Route, Frequency, Duration) Notes Start Date End Date Status [facility] Blood Glucose Test Str - Use 1 strip to check glucose daily DX E11.9 for 90 days 04/29/2025 Active Encounters Encounter Location Date Provider Diagnosis [facility] [address] [place] [address] 04/29/2025 Mark Cook Plan Of Treatment Medication Medication Name Sig Start Date Stop Date Notes [facility] Blood Glucose Test S tr - Use 1 strip to check glucose daily DX E11.9 for 90 days 04/29/2025 Progress Notes * Mei ARIAS LDOB:1980 (45 yo F)Acc No.[id number]:04/29/2025 Patient: Patricia NAGEL Mei Williamson :1980 A ge:45 Y S ex:Female Address:[address] [place] [address] * Refills Refill [facility] Blood Glucose Test Str Strip, -, 100, Use 1 strip to check glucose daily DX E11.9, 90 days, Refills=3 * true * Date: Generated for Printi ng/Faxing/eTransmitting on: 0 08/08/2025 07:02 AM EDT
--- OUTSIDE RECORDS SUMMARY | 2025-05-16 07:04 | XMS_ITS ---
Author Organization [facility] in [place] Address [address] [place] [address] Care Team Providers Care Telephone Triage Nurse Name Role Phone Mark Cook Primary Care Provider REASON FOR VISIT Metformin Update Medications Medication SIG (Take, Route, Frequency, Duration) Notes Start Date End Date Status Cefdinir 300 MG 2 capsule Orally onc e a day for 10 days 04/28/2025 Unknown Ferrous Sulfate 325 (65 Fe) MG 1 tablet Orally bid for 30 days 04/04/2025 Unknown metFORMIN HCl 500 MG 1 tablet with a pedro l Orally Twice Daily for 30 days 04/29/2025 Unknown [facility] Blood Glucose Test Str - Use 1 strip to check glucose daily DX E11.9 for 90 days 04/29/2025 Unknown Lisinopril 10 MG 1 tablet Orally Once a day Unknown Encounters Encounter Location Date Provider Diagnosis [facility] [address] [place] [address] 05/16/2025 Mark Cook Plan Of Treatment No Information Progress Notes * Mei ARIAS LDOB:1980 (45 yo F)Acc No.[id number]:05/16/2025 Patient: Mei KING Clay :1980 A ge:45 Y S ex:Female Address:[address] [place] [phone] Subjective: * Chief Complaints: * M etformin Update * Medical History: * Surgical History: * Hospitalization/Major Diagno stic Procedure: * Medications: U nknownCefdinir 300 MG Capsule 2 capsule Orally once a day Ferrous Sulfate 325 (65 Fe) MG Tablet Delayed Release 1 tablet Orally bid [facility] Blood Glucose Test Str(Glucose Blood) - Strip Use 1 strip to check glucose daily DX E11.9 Lisinopril 10 MG Tablet 1 tablet Orally Once a day metFORMIN HCl 500 MG Tablet 1 tablet with a meal Orally Twice Daily Unknown Cefdinir 300 MG Capsule 2 capsule Orally once a day Unknown Ferrous Sulfate 325 (65 Fe) MG Tablet Delayed Release 1 tablet Orally bid Unknown [facility] Blood Glucose Test Str(Glucose Blood) - Strip Use 1 strip to check glucose daily DX E11.9 Unknown Lisinopril 10 MG Tablet 1 tablet Orally Once a day Unknown metFORMIN HCl 500 MG Tablet 1 tablet with a meal Orally Twice Daily Objective: * Vitals: * Physical Examination: Assessment: Plan: * Treatment: * Procedure Codes: * true * Date: Generated for Elizabeth wright/Pierre/Ginny on: 0 08/08/2025 07:02 AM EDT
--- OUTSIDE RECORDS SUMMARY | 2025-05-23 06:49 | XMS_ITS ---
Author Organization [facility] in [place] Address [address] [place] [address] Care Team Providers Care Cupola Charger Name Role Phone JoeyMark Primary Care Provider REASON FOR VISIT update Metformin Medications Medication SIG (Take, Route, Fr equency, Duration) Notes Start Date End Date Status metFORMIN HCl 500 MG 1 tablet with a pedro l Orally Twice Daily for 90 days 04/29/2025 Active Encounters Encounter Location Date Provider Diagnosis [facility] [address] [place] [address] 05/23/2025 Mark Cook Plan Of Treatment Medication Medication Name Sig Start Date Stop Date Notes metFORMIN HCl 500 MG 1 tablet with a pedro l Orally Twice Daily for 90 days 04/29/2025 Progress Notes * Mei ARIAS LDOB:1980 (45 yo F)Acc No.[id number]:05/23/2025 Patient: Patricia NAGEL Mei Williamson :1980 A ge:45 Y S ex:Female Address:[address] [place] [address] * Refills Refill metFORMIN HCl Tablet, 500 MG, Orally, 180, 1 tablet with a meal, Twice Daily, 90 days, Refills=3 * true * Date: Generated for Nylai ng/Faxing/eTransmitting on: 0 08/08/2025 07:02 AM EDT
[2025-08-08 06:58] VITALS: BP 119/72; PULSE 93; TEMP 37.5; O2SAT 96; BMI 42.9
--- OUTSIDE RECORDS SUMMARY | 2025-08-08 07:02 | XMS_ITS | Patient Health Record ---
Author Organization [facility] Address [address] [place], [place] [address] Care Team Providers Care Agility Instructor Name Role Phone Cielo Hair Unavailable [phone] Allergies Allergen (clinical drug ingredient) Drug/Non Drug Allergy documented on EMR Reaction Allergy Type Onset Date Status Adhesive rash Allergy Active Latex Latex rash Allergy Active Reason For Referral No Information Medications Medication SIG (Take, Route, Frequency, Duration) Notes Start Date End Date Status dilTIAZem HCl ER Beads 180 MG 1 capsule Orally Once a day; Duration: 30 days Active Lisinopril 20 MG 1 tablet Orally Once a day; Duration: 30 days Active Social History Tobacco Use: Social History Observation Description Date Details (start date - stop date) Unknown Sex Assigned At : Social History Observation Description Sex Assigned At Female Tobacco Use/Smoking Question Answer Notes Tobacco use: Uses tobacco in other forms p atient entered data CAGE-AID Questionnaire (2018 Edition) Question Answer Notes Have you ever felt that you ought to cut down on your drinking or drug use? No patient entered data Have people annoyed you by c riticizing your drinking or drug use? No patient entered data Have you ever felt bad or gu ilty about your drinking or drug use? No patient entered data Have you ever had a drink or used drugs first thing in the morning to steady your nerves or to get rid of a hangover? No patient entered data CAGE-AID Score 0 Interpretation Negative PRAPARE Question Answer Notes Date Completed/Updated: 10/29/2023 georgina nt entered data What is your current housing situation? I have housing patient entered data Are you worried about losing your housing? No patient entered data What is the highest level of school that you have finished? 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 Check all that apply I do not have problems meeting my needs Has lack of transportation k ept you from medical appointments, meetings, work or from getting things needed for daily living? No How often do you see or talk to people that you care about and feel close to? (For example: talking to friends on the phone, visiting friends or family, going to druze or club meetings) More than 5 times a week patient entered data In the past year have you sp ent more than 2 nights in a row in a skilled nursing, jail, [place] [facility] [place] center, or juvenile correctional facility? No patient entered mateo a Are you a refugee? No patient en tered data What country are you from? [place] brigitte perez entered data Do you feel physically and emotionally safe where you currently live? Yes patient entered data In the past year, have you b een afraid of your partner or ex-partner? No patient entered data PRAPARE Score: 2 Problems Problem Type SNOMED Code ICD Code Onset Dates Problem Status W/U Status Risk Notes Problem Excessive and frequent menstruation (712074616) Menorrhagia with regular cycle (N92.0) Active confirmed Problem Abnormal uterine bleeding (30530757846909) Abnormal uterine bleeding (AUB) (N93.9) Active confirmed Problem Endometrium thickened (310450273) Thickened endometrium (R93.89) Active confirmed Plan Of Treatment No Information Insurance Providers Payer Name Payer Address Payer Phone Subscriber Number Group Number Insured Name Patient Relationship to Insured Coverage Start Date Coverage End Date [employer] [address] [place] [id number] [place], [place] [id number] 1 Rasta Arias Spouse - patient is the spouse of the insured 2 Medical (General) History Medical History History ICD Code Pre-diabetes R73.03 HTN (hypertension) I10 MTHFR Surgical History Surgery Date(Month/Year) Ceasarean Delivery (3) Laparotomy Knee Surgery (R) D&C 2001 cryo 2001 Hospitalization History Reason Date(Month/Year) See Surgical HX
--- OUTSIDE RECORDS SUMMARY | 2025-08-08 07:02 | XMS_ITS | Encounter Summary ---
Author Organization [facility] Address [address] [place] [address] Care Team Providers Care Dredge Operator Name Role Phone Isac Cook MD Primary Care Provider [phone] Encounter Details Date Type Department Care Team (Late st Contact Info) Description 01/27/2024 Clinisync Result Encounter [facility] External Department Unsolicited Rick Everett, DO [address] [facility] [place] [id number] Social History Tobacco Use Types Packs/Day Years Used Date Smoking Tobacco: Never Assessed Comments Unknown Sex and Gender Information Value Date Recorded Sex Assigned at Female 12/24/2023 12:26 PM EST Legal Sex Female 12:48 PM EST Gender Identity Female 12/24/2023 12:26 PM EST Sexual Orientation Straight 12/24/2023 12 :26 PM EST documented as of this encounter Plan of Treatment Not on file documented as of this encounter Procedures Procedure Name Priority Date/Time Associated Diagnosis Comments ECG 12-LEAD 01/27/2024 9:42 AM EST documented in this encounter Results * ECG 12-LEAD (01/27/2024 9:42 AM EST) Anatomical Region Laterality Modality Other 01/27/2024 9:42 AM EST Narrative 01/27/2024 10:54 PM EST The [address] [address] Electrocardiograph Report Signed Patient: LAURA ARIAS MR#: [id number] : 1980 Acct:[id number] Age/Sex: 43 / F ADM Date: 01/27/24 Loc: PST Attending Dr: Rick Everett D.O. Ordering Physician: Rick Everett D.O. 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 Signed By: 01/27/24 2254 DD/ 0942 TD/TT: Rigger Apprentice: Procedure Note Radiology, Radiologist, MD - 01/29/2024 [place] [address] Electrocardiograph Report Signed Patient: LAURA ARIAS LMR#: [id number] : 1980Acct:[id number] Age/Sex: 43 / FADM Date: 01/27/24 Loc: PST Attending Dr: Rick Everett D.O. Ordering Physician: Rick Everett D.O. 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 Signed By:01/27/24 2254 DD/ 0942 TD/TT: Rigger Apprentice: us Rick Marguerite DO [facility] Final Result documented in this encounter Visit Diagnoses Not on filedocumented in this encounter Care Teams Dredge Operator Relationship Specialty Start Date End Date Isac Cook MD PCP - General Family Medicine 12/25/23 documented as of this encounter
--- OUTSIDE RECORDS SUMMARY | 2025-08-08 07:02 | XMS_ITS | Encounter Summary ---
Author Organization [facility] Address [address] [place] [address] Care Team Providers Care Ruching Machine Operator Name Role Phone Isac Cook MD Primary Care Provider [phone] Encounter Details Date Type Department Care Team (Late st Contact Info) Description 01/27/2024 Clinisync Result Encounter [facility] External Department Unsolicited Rick Everett, DO [address] [facility] [place] [id number] Social History Tobacco Use Types Packs/Day Years [...] Procedure Name Priority Date/Time Associated Diagnosis Comments XR CHEST 2V 01/27/2024 10:03 AM EST documented in this encounter Results * XR CHEST 2V (01/27/2024 10:03 AM EST) Anatomical Region Laterality Modality Other 01/27/2024 10:0 3 AM EST Narrative 01/27/2024 10:06 AM EST The [address] [address] XRay Report Signed Patient: LAURA ARIAS MR#: [id number] : 1980 Acct:[id number] Age/Sex: 43 / F ADM Date: 01/27/24 Loc: PST Attending Dr: Rick Everett D.O. Ordering Physician: Rick Everett D.O. Date of Service: 01/27/24 Procedure(s): XR chest 2V Accession Number(s): [id number] cc: Rick Everett D.O.; Physician,Non-Staff Reji The [place] [id number] Patient Name: LAURA ARIAS MRN: [id number] date: 1980 Sex: F Assigned Patient Location: [facility] Current Patient Location: [facility] Accession/Order Number: [id number] Exam Date: 01/27/2024 09:45 Report Date: 01/27/2024 10:03 At the request of: RICK EVERETT Procedure: XR chest 2V EXAM: XR chest 2V HISTORY: Preop exam COMPARISON: None. TECHNIQUE: PA and lateral views of the chest. FINDINGS: The cardiomediastinal silhouette is normal. No focal consolidation is identified. There is no pneumothorax. No pleural effusion is noted. The osseous structures are intact. XR/XR chest 2V IMPRESSION: No acute cardiopulmonary process. Electronically authenticated by: SORAYA SANTOS Date: 01/27/2024 10:03 Dictated By: Soraya Santos M.D. Signed By: 01/27/24 1006 DD/ 1003 TD/TT: Produce Inspector: Procedure Note Radiology, Radiologist, MD - 01/27/2024 [place] [address] XRay Report Signed Patient: LAURA ARIAS LMR#: [id number] : 1980Acct:[id number] Age/Sex: 43 / FADM Date: 01/27/24 Loc: PST Attending Dr: Rick Everett D.O. Ordering Physician: Rick Everett D.O. Date of Service: 01/27/24 Procedure(s): XR chest 2V Accession Number(s): [id number] cc: Rick Everett D.O.; Physician,Non-Staff Reji The [place] [address] Patient Name: LAURA ARIAS MRN: [id number] date: 1980 Sex: F Assigned Patient Location: SURGOUT Current Patient Location: [facility] Accession/Order Number: [id number] Exam Date: 01/27/2024 09:45 Report Date: 01/27/2024 10:03 At the request of: RICK EVERETT Procedure: XR chest 2V EXAM: XR chest 2V HISTORY: Preop exam COMPARISON: None. TECHNIQUE: PA and lateral views of the chest. FINDINGS: The cardiomediastinal silhouette is normal. No focal consolidation is identified. There is no pneumothorax. No pleural effusion is noted. The osseous structures are intact. XR/XR chest 2V IMPRESSION: No acute cardiopulmonary process. Electronically authenticated by: SORAYA SANTOS Date: 01/27/2024 10:03 Dictated By: Soraya Santos M.D. Signed By:01/27/24 1006 DD/ 1003 TD/TT: Produce Inspector: Rick Everett DO [facility] Final Result documented in this encounter Visit Diagnoses Not on filedocumented in this encounter Care Teams Ruching Machine Operator Relationship Specialty Start Date End Date Isac Cook MD PCP - General Family Medicine 12/25/23 documented as of this encounter
--- OUTSIDE RECORDS SUMMARY | 2025-08-08 07:03 | XMS_ITS | CCD ---
Author Organization [facility] Care Team Providers Care Fruit Pitter Name Role Phone DR IRVIN COOK Admitting Unavailable JOEY, DR BRYAN Attending Unavailable JOEY, DR BRYAN Primary Care Unavailable JOEY, DR BRYAN Consulting Unavailable JOEY, DR BRYAN Admitting Unavailable JOEY, DR BRYAN Attending Unavailable JOEY, DR BRYAN Primary Care Unavailable JOEY, DR BRYAN Consulting Unavailable WEST, DR RALF Castillo Consulting Unavailable JOEY, DR BRYAN Admitting Unavailable JOEY, DR BRYAN Attending Unavailable JOEY, DR BRYAN Primary Care Unavailable JOEY, DR BRYAN Consulting Unavailable JOEY, DR BRYAN Admitting Unavailable JOEY, DR BRYAN Attending Unavailable JOEY, DR BRYAN Primary Care Unavailable JOEY, DR BRYAN Consulting Unavailable Esa Everett Attending Provider Esa Everett Attending Unavailable Esa Everett Admitting Unavailable Irvin Cook Primary Care Physician Kyle SIERRA Attending Unavailable IRVIN COOK Unavailable Allergies Allergy Classification Reported Allergen(s) Allergy Type Date of Onset Reaction(s) Facility (2 sources) Adhesive bandage; Translations: [Adhesive Bandage] Allergy to substance Blister of skin AND/OR mucosa (finding) [facility] (4 sources) Latex; Translations: [Latex] Allergy to substance 5 Eruption of skin (disorder), hives [facility] (2 sources) Simvastatin; Translations: [simvastatin] Drug Allergy Muscle pain (finding) [facility] (1 source) Adhesive Tape Allergy to substance 5 Unknown Reaction [facility] Medications Current Medications Medication Drug Class(es) Dates Sig (Normalized) Sig (Original) acetaminophen 325 mg / HYDROcodone bitartrate 5 mg oral tablet (1 source) Opioid Agonist End: 04-04-20 take 1 tablet by mouth every six hours as needed for pain hydrocodone 5 mg-acetaminophen 325 mg tablet TAKE 1 TABLET BY MOUTH EVERY 6 HOURS NEEDED FOR PAIN 04/04/2025 completed Not Available Not Available Not Available amoxicillin 875 mg / clavulanate 125 mg oral tablet (1 source) Penicillin-class Antibacterial End: 04-04-20 take 1 tablet by mouth every twelve hours amoxicillin 875 mg-potassium clavulanate 125 mg tablet TAKE 1 TABLET BY MOUTH EVERY 12 HOURS FOR 10 DAYS 04/04/2025 completed Not Available Not Available Not Available 120 actuat fluticasone propionate 0.11 mg/actuat metered dose inhaler (1 source) Corticosteroid End: 04-04-20 take 2 puff(s) by mouth twice daily fluticasone propionate 110 mcg/actuation HFA aerosol inhaler INHALE 2 PUFFS BY MOUTH TWICE DAILY 04/04/2025 completed Not Available Not Available Not Available furosemide 40 mg oral tablet (1 source) Loop Diuretic End: 04-04-20 take 1 tablet by mouth once daily furosemide 40 mg tablet TAKE 1 TABLET BY MOUTH ONCE DAILY 04/04/2025 completed Not Available Not Available Not Available hydroCHLOROthiazide 12.5 mg oral tablet (1 source) Thiazide Diuretic End: 04-04-20 take 1 tablet by mouth in the morning hydrochlorothiazide 12.5 mg tablet TAKE 1 TABLET BY MOUTH IN THE MORNING 04/04/2025 completed Not Available Not Available Not Available hyoscyamine sulfate 0.125 mg sublingual tablet (2 sources) Start: 01-14-20 take 1 tablet under the tongue every six hours as needed for pain hyoscyamine 0.125 mg sublingual Tab 0.125 mg = 1 tab(s), SubLingual, q6hr, PRN Pain, Refills(s) 0 Start Date: 01/14/25 Status: Ordered End: 04-04-2025 take 1-2 tablets under the tongue every four hours as needed for pain hyoscyamine 0.125 mg sublingual tablet TAKE 1 TO 2 TABLETS UNDER THE TONGUE EVERY 4 HOURS NEEDED FOR ABDOMINAL pain 04/04/2025 completed Not Available Not Available Not Available levoFLOXacin 750 mg oral tablet (1 source) Quinolone Antimicrobial End: 04-04-2025 take 1 tablet by mouth once daily levofloxacin 750 mg tablet TAKE 1 TABLET BY MOUTH ONCE DAILY FOR 10 DAYS 04/04/2025 completed Not Available Not Available Not Available lisinopril 10 mg oral tablet (7 sources) Angiotensin Converting Enzyme Inhibitor Start: 04-28-2025 take 1 tablet by mouth once daily Lisinopril 10 mg tablet Active 10 MG PO Daily April 28, 2025 12:00am Start: 04-28-2025 End: 04-28-2025 Lisinopril 20 mg tablet Disc ontinued MG PO April 28, 2025 12:00am April 28, 2025 12:53pm Start: 01-12-2025 End: 04-04-2025 take 1 tablet by mouth once daily lisinopril 20 mg Tab 20 mg = 1 tab(s), Oral, Daily, Refills(s) 0 Start Date: 01/12/25 Status: Ordered Start: 12-19-2024 End: 04-28-2025 Lisinopril 40 mg tablet Disc ontinued MG PO December 19, 2024 1:00am April 28, 2025 12:46pm ondansetron 4 mg disintegrating oral tablet (2 sources) Serotonin-3 Receptor Antagonist Start: 01-12-2025 End: 04-04-2025 take 1 tablet by mouth every six hours as needed for nausea ondansetron 4 mg Dis Tab 4 mg = 1 tab(s), Oral, q6hr, PRN Nausea/Vomiting, Refills(s) 0 Start Date: 01/12/25 Status: Ordered Completed/Discontinued Medications Medication Drug Class(es) Dates Sig (Normalized) Sig (Original) [id number] 200 actuat albuterol 0.09 mg/actuat metered dose inhaler (3 sources) beta2-Adrenergic Agonist Start: 12-19-2024 End: 04-28-2025 take 1 puff(s) by inhalation every four to six hours as needed for wheezing Albuterol Sulfate 90 mcg/actuation HFA aerosol inhaler Discontinued 2 PUFF INHALATION EVERY 4-6 HOURS as needed for shortness of breath or wheezing 8.5 December 19, 2024 1:00am April 28, 2025 12:46pm End: 04-04-2025 take 2 puff(s) by mouth every four to six hours as needed for wheezing albuterol sulfate HFA 90 mcg/actuation aerosol inhaler INHALE 2 PUFFS BY MOUTH EVERY 4 TO 6 HOURS NEEDED for SHORTNESS OF BREATH and FOR WHEEZING 04/04/2025 completed Not Available Not Available Not Available azithromycin 250 mg oral tablet (3 sources) Macrolide Antimicrobial Start: 12-19-2024 End: 04-28-2025 Azithromycin 250 mg tablet Discontinued 0 PO .COMPLEX 6 December 19, 2024 1:00am April 28, 2025 12:46pm For 250 mg dose pack: take 500 mg today (day 1), then 250 mg for 4 days (days 2-5) PO End: 04-04-2025 azithromycin 250 mg tablet T GWEN 2 TABLETS by mouth today, THEN take 1 TABLET once a day FOR the next 4 DAYS. 04/04/2025 completed Not Available Not Available Not Available 24 hr dilTIAZem hydrochloride 180 mg extended release oral tablet (5 sources) Calcium Channel Karol Start: 12-19-2024 End: 12-19-2024 take 1 tablet by mouth every twenty-four hours Diltiazem Hcl 180 mg tablet extended release 24 hr Discontinued MG PO December 19, 2024 1:00am December 19, 2024 3:42pm End: 04-04-2025 take 1 capsule by mouth once daily Cardizem CD 180 mg capsule,extended release 1 capsule Once a day , Orally 04/04/2025 completed Encounter Date: 04/07/2024 Status: 'Taking'; Not Available Not Available Not Available End: 04-04-2025 take 1 tablet by mouth once daily diltiazem ER 180 mg tablet,extended release 24 hr TAKE 1 TABLET BY MOUTH ONCE DAILY 04/04/2025 completed Not Available Not Available Not Available doxepin hydrochloride 10 mg oral capsule (3 sources) Tricyclic Antidepressant Start: 12-19-2024 End: 04-04-2025 Doxepin 10 mg capsule Discontinued MG PO December 19, 2024 1:00am December 19, 2024 3:43pm 24 hr metFORMIN hydrochloride 500 mg extended release oral tablet (3 sources) Biguanide Start: 12-19-2024 End: 04-04-2025 take 1 tablet by mouth every twenty-four hours Metformin 500 mg tablet extended release 24 hr Discontinued MG PO December 19, 2024 1:00am December 19, 2024 3:43pm predniSONE 20 mg oral tablet (3 sources) Start: 12-19-2024 End: 04-28-2025 take 2 tablets by mouth once daily Prednisone 20 mg tablet Discontinued 20 MG PO .COMPLEX 10 December 19, 2024 1:00am April 28, 2025 12:46pm Take 2 tabs po daily x 5 days Problems Active Problems Problem Classification Problem Date Documented Date Episodic/Chronic Abdominal hernia (1 source) Hiatal hernia 01-12-2025 Episodic Abdominal pain (5 sources) Left upper quadrant pain; Translations: [Left upper quadrant pain] Onset: 01-14-20 Episodic Anxiety disorders (1 source) Anxiety 01-12-2025 Chronic Biliary tract disease (1 source) Biliary calculus 01-12-2025 Episodic Cardiac dysrhythmias (1 source) Multiple premature ventricular complexes 01-12-2025 Chronic Cardiac dysrhythmias (4 sources) Palpitations; Translations: [PALPITATIONS] Onset: 07-17-20 Episodic Coagulation and hemorrhagic disorders (1 source) Thrombophilia 01-12-2025 Chronic Disorders of lipid metabolism (1 source) Hypercholesterolemia 01-12-2025 Chronic Esophageal disorders (1 source) Gastroesophageal reflux disease 01-12-2025 Chronic Essential hypertension (2 sources) Hypertensive disorder; Translations: [Essential hypertension] 01-12-2025 Chronic Headache; including migraine (1 source) Migraine 01-12-2025 Chronic Mood disorders (1 source) Depressive disorder 01-12-2025 Chronic Nausea and vomiting (2 sources) Nausea; Translations: [Nausea] Onset: 01-14-20 Episodic Other endocrine disorders (2 sources) Polycystic ovary syndrome Onset: 04-04-20 25 01-12-2025 Chronic Other endocrine disorders (1 source) Hereditary disorder of endocrine system 01-12-2025 Episodic Other gastrointestinal disorders (2 sources) Diarrhea; Translations: [Diarrhea, unspecified] Onset: 01-14-20 Episodic Other liver diseases (1 source) Steatosis of liver 01-12-2025 Chronic Other liver diseases (1 source) Large liver 01-12-2025 Episodic Other lower respiratory disease (1 source) Acute lower respiratory tract infection; Translations: [Unspecified acute lower respiratory infection] 12-19-2024 Episodic Other nutritional; endocrine; and metabolic disorders (1 source) Body mass index 40+ - severely obese 01-14-2025 Chronic Other nutritional; endocrine; and metabolic disorders (1 source) Metabolic syndrome X 01-12-2025 Chronic Other nutritional; endocrine; and metabolic disorders (1 source) Obese class III 01-13-2025 Chronic Residual codes; unclassified (1 source) Obstructive sleep apnea syndrome Onset: 04-04-20 25 Chronic Unclassified (3 sources) CONTACT W/AND (SUSP) EXPOS COVID-19; Translations: [CONTACT W/AND (SUSP) EXPOS COVID-19] Onset: 11-15-20 21 Viral infection (1 source) COVID-19; Translations: [COVID-19] Onset: 08-11-20 22 Past or Other Problems Problem Classification Problem [...] Test Name Value Interpretation Reference Range Facility hearing screening*on 025 Unknown Analyte Pass Invalid Interpretation Code [facility] urinalysis, dipstickon 04-04 Appearance (U) Clear Invalid Interpretation Code [facility] Color (U) Yellow Invalid Interpretation Code [facility] Glucose Ql (U) Negative Invalid Interpretation Code [facility] Ambulatory Visit Summaryon 0 01-14-2025 Ambulatory Visit Summary Ambulatory Visit Summary CASSANDRA L :1980 Visit Date:01/14/2025 Ambulatory Visit Instructions Your Diagnosis Diarrhea Abdominal pain, bilateral upper quadrant Epigastric pain Nausea Left upper quadrant pain Your Care Team Attending Physician - MARIELA ARGUELLO, Kyle Larry Primary Care Physician - Joey ARGUELLO, Irvin This Is Your Medications List Contact prescribing [...] for choosing us for your care. Normal [facility] Hamzah 02-19-2024 L Specimen: [id number] eceived: 02/20/24 [facility] Num: [id number] Spec Type: Surgical Subm Dr: Esa Everett Tissues: A Endometrium - Curettings (EMC) Procedures: HE/2, Gross/Micro L4 Age/ Patient Sex Location Account Attending Physician Laura Arias 43/F LABELL [id number] Esa Everett SPEC NUM: [id number] RECD: 02/20/24 STATUS: SASHA REHermelinda NUM: [id number] FELIPE: 02/19/24-[address]: Esa Everett ENTERED: 02/20/24-13[address] [facility] DR: Bianca,Lab SPEC TYPE: Surgical DEPT: HERNANDEZ [...] in one cassette labeled A1. CPT Codes 80444 -- -- Specimen: [id number] Received: 02/20/24 Status: SASHA Baker Num: [id number] Spec Type: Surgical Subm Dr: Esa Everett Tissues: A Endometrium - Curettings (EMC) Procedures: HE/2, Gross/Micro L4 -- Patient: Laura Arias [id number] (Continued) -- Signed (signature on file) Mary Michaels MD 02/23/24 1330 [facility] Covid-19 PCR (CVDTB)on SARS-CoV-2 (COVID-19) RNA ANKITA+probe Ql (Unsp spec) Detected Critically abnormal NOT DETECTED [facility] Comment on above: Result Comment: This test is not yet zoe roved or cleared by the [place] FDA. When there are no FDA-approved or cleared tests available, and other criteria are met, FDA can make tests available under an emergency access mechanism called an Emergency Use Authorization (EUA). The EUA for this test is supported by the District Fire Management Officer of Health and Human Service's declaration that [...] longer be used). Performed By: #### [facility] #### [facility] [address] [place] [address] Dr. Bessie Pro Covid-19 PCR (CVDTB)on 10-31 SARS-CoV-2 (COVID-19) RNA ANKITA+probe Ql (Unsp spec) Not detected Normal NOT DETECTED [facility] Comment on above: Result Comment: This test is not yet zoe roved or cleared by the [place] FDA. When there are no FDA-approved or cleared tests available, and other criteria are met, FDA can make tests available under an emergency access mechanism called an Emergency Use Authorization (EUA). The EUA for this test is supported by the [place] of Health and Human Service's (HHS's) declaration [...] consistent with SARS-CoV-2. Performed By: #### [facility] #### [facility] [address] [place] [address] ABD/PELVIS WO CONon [...] RALF BENNETT Date: 2021-08-27 09:54 Normal [facility] Vital Signs Date Time Vital Sign Value Performing Clinician Faci lity 04-28-2025 12:54-0400 Body height 167.64 cm [facility] 04-28-2025 12:54-0400 Body mass index (BMI) [Ratio] 44.6 kg/m2 [facility] 04-28-2025 12:54-0400 Body temperature 98.9 [degF] [facility] 04-28-2025 12:54-0400 Body weight 125.64 kg [facility] 04-28-2025 12:54-0400 Diastolic blood pressure 70 mm[Hg] [facility] 04-28-2025 12:54-0400 Heart rate 77 /min [facility] 04-28-2025 12:54-0400 Respiratory rate 18 /min [facility] 04-28-2025 12:54-0400 SaO2% (BldA) [Mass fraction] 99 % [facility] 04-28-2025 12:54-0400 Systolic blood pressure 105 mm[Hg] [facility] 04-04-2025 01:00-0400 Body height 167.64 cm [place]ad [place] [facility] 04-04-2025 01:00-0400 Body mass index (BMI) [Ratio] 45.9 kg/m2 Libertad [place] [facility] 04-04-2025 01:00-0400 Body surface area Derived from formula 2.45 m2 [address] [facility] 04-04-2025 01:00-0400 Body weight 128.91 kg [address]ad [place] [facility] 04-04-2025 01:00-0400 Diastolic blood pressure 80 mm[Hg] [place]ad [place] [facility] 04-04-2025 01:00-0400 Heart rate 70 /min Libertad Lovell [place] - [facility] 04-04-2025 01:00-0400 SaO2% (BldA) [Mass fraction] 98 % Libertad Lovell [place] [facility] 04-04-2025 01:00-0400 Systolic blood pressure 124 mm[Hg] Libertad Lovell [place] [facility] 01-14-2025 10:23-0500 Blood Pressure Location Kyle SIERRA [facility] 01-14-2025 10:23-0500 Diastolic blood pressure 87 mm[Hg] Kyle SIERRA [facility] 01-14-2025 10:23-0500 Heart rate 73 /min Kyle SIERRA [facility] 01-14-2025 10:23-0500 Respiratory rate 16 /min Kyle SIERRA [facility] 01-14-2025 10:23-0500 Systolic blood pressure 145 mm[Hg] Kyle SIERRA [facility] 12-19-2024 14:43-0500 Body height 167.64 cm [facility] 12-19-2024 14:43-0500 Body mass index (BMI) [Ratio] 47.7 kg/m2 [facility] 12-19-2024 14:43-0500 Body temperature 97.9 [degF] [facility] 12-19-2024 14:43-0500 Body weight 133.97 kg [facility] 12-19-2024 14:43-0500 Diastolic blood pressure 76 mm[Hg] [facility] 12-19-2024 14:43-0500 Heart rate 69 /min [facility] 12-19-2024 14:43-0500 Respiratory rate 18 /min [facility] 12-19-2024 14:43-0500 SaO2% (BldA) [Mass fraction] 98 % [facility] 12-19-2024 14:43-0500 Systolic blood pressure 135 mm[Hg] [facility] Encounters Encounter Date Encounter Type Care Provider Facility Start: 04-28-2025 End: 04-28-2025 ambulatory [facility] Work Phone: Start: 04-28-2025 End: 04-28-2025 Patient encounter procedure [facility] Yonis Work Phone: Start: 04-04-2025 General examination of patient Libertad Lovell [place] [facility] Start: 04-04-2025 Libertad Lovell [facility] Start: 01-14-2025 End: 01-14-2025 ambulatory Kyle R MARIELA Facility:[facility] Start: 01-14-2025 End: 01-14-2025 Patient encounter procedure Kyle SIERRA [facility] [place] Start: 01-10-2025 ambulatory Kyle PETERSONL Facility: [facility] [place] Start: 12-19-2024 End: 12-19-2024 ambulatory [facility] Work Phone: Start: 12-19-2024 End: 12-19-2024 Patient encounter procedure [facility] Work Phone: Start: 02-20-2024 End: 02-20-2024 ambulatory Esa Marguerite Facility:[facility] Start: 02-20-2024 End: 02-20-2024 ambulatory Esa Marguerite Work Phone: [facility] Work Phone: Start: 02-20-2024 End: 02-20-2024 Departed Referred Esa Everett Work Phone: [facility] Start: 08-08-2022 End: 08-08-[address] IRVIN COOK Facility:[facility] Start: 07-17-2022 End: 07-18-[address] IRVIN COOK Facility:[facility] Start: 11-09-2021 End: 11-09-[address] IRVIN OCOK Facility:[facility] Start: 08-27-2021 End: 08-28-[address] IRVIN COOK Facility:[facility] Procedures Date Procedure Procedure Detail Performing Clinician Start: 05-01-2018 Colonoscopy Kyle NI LL Start: 05-01-2018 Esophagogastroduodenoscopy Kyle NILL section Kyle NIL L Dilation and curettage Luigi el NILL Dilation and curettage Luigi el NILL Extraction of wisdom tooth M ichael NILL Laparoscopy Kyle NILL Ligation of fallopian tube M ichael NILL Repair of meniscus Kyle MCMANUS Plan of Treatment Date Care Activity Detail Author Start: 04-04-2025 urinalysis, dipstick [facility] Start: 04-04-2025 InPerson; Emp Physic al Other [place] [facility] Dilation and curettage dilation and curet tage [place] [facility] Operative procedure on knee operative procedure on knee [place] [facility] Patient Education [place] - [facility] Urine culture [facility] Immunizations Immunization Date Immunization Notes Care Provider Nnamdi banuelos 04-05-2021 SARS-CoV-2 (COVID-19 ) mRNA BNT-162b2 karthikeyan SIERRA [facility] [place] 03-05-2021 SARS-CoV-2 (COVID-19 ) mRNA BNT-162b2 karthikeyan SIERRA [facility] Surgery [place] Payers Date Payer Category Payer Private Health Insurance [id number] 2024 Self-pay 2018 Private Health Insurance 1980 Unknown [id number] 2.16.84 [id number] 1980 Unknown [id number] 2.16.84 [id number] 1980 Unknown [id number] 2.16.84 [id number] 1980 Unknown [id number] 2.16.84 [id number] 1980 Unknown [id number] 2.16.8 [id number] 1980 Unknown [id number] 2.16.8 [id number] 1958 Private Health Insurance [id number] 1958 Private Health Insurance [id number] Unknown [id number] 2.16.8 [id number] Social History Date Type Detail Facility [facility] Work Phone: Start: 1980 Sex Assigned At Female F [facility] if ever smoked [facility] Work Phone: Start: 12-19-2024 End: 04-28-2025 Sex Female (finding) [facility] Start: 01-14-2025 Tobacco smoking status Ex-smoker (fi nding) [facility] Sex Assigned At Female [facility] Sex Assigned At Unknown [place] [facility] Procedure Code Equipment Code Equipment Original Text Equi pment Identifier Dates Procedure Implant ([id number]) Functional Status Date Assessment Result Facility 01-14-2025 Functional Status N/A [facility] Evaluation + Plan note 01-14-2025 Note Date & Type Note Facility 01-14-2025 Evaluation + Plan note Diagnostic Tests PendingEnteric Panel by PCR 01/14/25Clostridium Difficile PCR 01/14/25O & P Exam, Routine 01/14/25 [facility] Clinical Note 01-14-2025 Note Date & Type Note Facility 01-14-2025 Note General Surgery Offi ce/Clinic Note Chief Complaint consultation for abdominal pain HPI Staff 44 year old female presents on consultation from [facility] [place] [facility] for abdominal pain. Presented to ED [...] referred for abd pain/cholelithiasis; patient was in [facility] ED 5 days ago for upper [...] and RUQ US scheduled for tomorrow at [facility]; await results; continue low fat diet; no evidence of cholecystitis on abd/pelvic ct scan. call with problems/questions. Ordered: Clostridium Difficile PCR Enteric Panel by PCR O & P Exam, Routine 2. Abdominal pain, bilateral upper quadrant (R10.11: Right upper quadrant pain) see # 1 O (more content not included)... [facility] Comment on above: Result Comment: Elec tronically Signed By: MARIELA ARGUELLO, Kyle Rice.joie\Date and Time Signed: 01/14/25 11:24 EST Evaluation note Note Date & Type Note Facility Evaluation note No assessment information availa [facility] Work Phone: Evaluation note Note Date & Type Note Facility Evaluation note No assessment recorded. [place] [facility] History general Narrative - Reported Note Date & Type Note Facility History general Narrative - Reported No medical history recorded. Gynecological HistoryNo gynecological history recorded. Obstetrics History GPAL:G 11 P 0 0 0 4 Multiple Births 0 Full Term 0 Induced 0 Spontaneous 0 Premature 0 Living 4 Ectopics 0 Total 11 [place] [facility] Hospital course Narrative Note Date & Type Note Facility Hospital course Narrative No data available for this section [facility] [place] [facility] Discharge instructions Note Date & Type Note Facility Hospital Discharge instructions No data available for this section [facility] [place] Progress note Note Date & Type Note Facility Progress note No data available for this section [facility] [place] Summary Purpose Family History Relationship Description Onset Age of this Age Resolved Age Notes LastModified by Organization Details LastModified Time Mother Diabetes mellitus diagno sed with Diabet es [id number] Not available 09/05/2024 04:25:22 Notes:*Relative: Father*Prob orlin: 73 yrs *Relative: Mother*Problem: 78 yrs, congestive heart failure, dementia *Relative: Unspecified Relation*Problem: alive, LupusRelative: 'Siblings'; *Relative: Unspecified Relation*Problem: Dad of colon cancer Mom of covid related *Relative: Unspecified Relation*Problem: 1 brother(s) 3 sisters(s) 1 sons(s) 3 daughters(s) - healthy Advance Directives Advance Directive Response Recorded Date/ Time Advance Directives No February 19 1:14pm Advance Directive Response Recorded Date/ Time Advance Directives No February 19 12:14pm Chief Complaint and Reason for Visit Chief Complaint Admit Date Dysuria April 28, 2025 12:45 pm Chief Complaint Admit Date cough, congestion December 19, 2024 2 :29pm Additional Source Comments INFORMATION SOURCE (unrecogn ized section and content) DATE CREATED AUTHOR 08/11/2022 [facility] DATE CREATED AUTHOR AUTHOR'S ORGANIZ ATION 02/24/2024 [facility] DATE CREATED AUTHOR AUTHOR'S ORGANIZ ATION 01/16/2025 [facility] Care Teams (unrecognized sec tion and content) Team Status: Inactive Member Role Status Dates Esa Everett Attending Provider Active Start: Rita [facility] 2023 End: February 20, 2024 Team Status: Active Member Role Status Dates NON STAFF Primary Care Provider Active Team Status: Inactive Member Role Status Dates Tashia Sullivan , JOSE Attending Provider Active Start: December 19, 2024 End: December 19, 2024 NON STAFF Primary Care Provider Active Start: December 19, 2024 End: December 19, 2024 Team Status: Inactive Member Role Status Dates NON STAFF Primary Care Provider Active Start: April 28, 2025 End: April 28, 2025 Edith Ruth APRN Attending Provider Active Start: April 28, 2025 End: April 28, 2025 Goals (unrecognized section and content) Goals may be documented in a n alternate sectionGoals may be documented in an alternate section No data available for this sectionNone RecordedGoals may be documented in an alternate section [...] BE BASED ON THE PRIMARY CLINICAL RECORDS. [employer] [facility]. provides no warranty or guarantee of the accuracy or completeness of information in this document.
--- OUTSIDE RECORDS SUMMARY | 2025-08-08 07:03 | XMS_ITS | Patient Health Record ---
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 , Triglycerides 215 <=150 mg/dL Cholesterol 233 <=200 mg/dL HDL Cholesterol 34 40-60 mg/dL <40 mg/dl - HIGH CARDIOVASCULAR RISK > or =60 mg/dl - LOW CARDIOVASCULAR RISK LDL Cholesterol Calculated 156.0 100-129 mg/dl NEAR OR ABOVE OPTIMAL 160-189 mg/dl HIGH >190 mg/dl VERY HIGH <100 mg/dl OPTIMAL 130-159 mg/dl BORDERLINE HIGH VLDL CHOLESTEROL 43.0 Chol HDL Ratio 6.9 >11.0 HIGH RISK 3.3 - 4.4 LOW RISK 4.4 - 7.1 AVERAGE RISK 7.1 - 11.0 MODERATE RISK Performing Lab: see note ML - [facility] LB UA DIP NONAUTO WO MICRO (810 02) - IN OFFICE (Not yet reviewed by provider) Interpretation: Performing Lab: Notes/Report: COLOR straw CLARITY cloudy GLUCOSE n BILIRUBIN n KETONE n SPECIFIC GRAVITY 1.025 BLOOD 250 PH 5 PROTEIN trace UROBILINOGEN n NITRITE n LEUKOCYTE ESTERASE n BILIRUBIN CONJUGATED (DIRECT ) Reviewed date:04/02/2025 05:17:28 PM Interpretation: Performing Lab: Notes/Report: [facility] , Bilirubin Direct 0.1 0.0-0.2 mg/dL Performing Lab: see note ML - [facility] LB FREE T3 Reviewed date:04/02/2025 05:17:28 PM Interpretation: Performing Lab: Notes/Report: [facility] , Free T3 2.70 2.18-3.98 pg/mL Performing Lab: see note ML - [facility] LB IRON Reviewed date:04/02/2025 05:17:28 PM Interpretation: Performing Lab: Notes/Report: [facility] , Iron 26.0 50.0-170.0 ug/dL Performing Lab: see note ML - [facility] LB LIPID PROFILE Reviewed date:04/02/2025 05:17:28 PM Interpretation: Performing Lab: Notes/Report: [facility] , Triglycerides 134 <=150 mg/dL Cholesterol 200 <=200 mg/dL HDL Cholesterol 40 40-60 mg/dL <40 mg/dl - HIGH CARDIOVASCULAR RISK > or =60 mg/dl - LOW CARDIOVASCULAR RISK LDL Cholesterol Calculated 133.2 100-129 mg/dl NEAR OR ABOVE OPTIMAL 130-159 mg/dl BORDERLINE HIGH <100 mg/dl OPTIMAL 160-189 mg/dl HIGH >190 mg/dl VERY HIGH VLDL CHOLESTEROL 26.8 Chol HDL Ratio 5.0 7.1 - 11.0 MODERATE RISK 4.4 - 7.1 AVERAGE RISK >11.0 HIGH RISK 3.3 - 4.4 LOW RISK Performing Lab: see note ML - [facility] LB PROF 14(COMP METB) Reviewed date:04/02/2025 05:17:28 PM Interpretation: Performing Lab: Notes/Report: [facility] , Sodium 140 136-145 mmol/L Potassium 4.4 3.5-5.1 mmol/L Chloride 101 98-107 mmol/L Carbon Dioxide 28.9 21.0-32.0 mmol/L Anion Gap 14.5 Glucose 109 74-106 mg/dL Blood Urea Nitrogen 10.0 7.0-18.0 mg/dL Creatinine 0.78 0.55-1.02 mg/dL Estimated GFR ( Maria Luisa >60 >=60 mL/min/1.73m 2 Estimated GFR (Non- Smiley >60 >=60 mL/min/1.73m 2 BUN Creatinine Ratio 12.8 Calcium 9.2 8.5-10.1 mg/dL Bilirubin Total 0.2 0.2-1.0 mg/dL Aspartate Amino Transferase 26 15-37 U/L Alanine Aminotransferase 46 14-59 U/L Alkaline Phosphatase 104 46-116 U/L Total Protein 7.1 6.4-8.2 g/dL Albumin Level 3.3 3.4-5.0 g/dL Globulin 3.8 Albumin Globulin Ratio 0.9 Performing Lab: see note - [facility] T4 Reviewed date:04/02/2025 05:17:28 PM Interpretation: Performing Lab: Notes/Report: [facility] , T4 Thyroxine 9.40 4.80-13.90 ug/dL Performing Lab: see note - [facility] LB TSH Reviewed date:04/02/2025 05:17:28 PM Interpretation: Performing Lab: Notes/Report: [facility] , Thyroid Stimulating Hormone 1.458 0.358-3.740 uIU/mL Performing Lab: see note - [facility] Prothrombin Time INR Reviewed date:04/02/2025 05:17:28 PM Interpretation: Performing Lab: Notes/Report: [facility] , Prothrombin Time 10.6 9.0-11.6 sec INR 1.00 2.5-3.5 RECURRENT THROMBOSIS DESIRED INR: 2.0-3.0 CONDITIONS NOT LISTED BELOW 2.5-3.5 FOR PROSTHETIC HEART VALVE REPLACEMENT Performing Lab: see note - [facility] LB PTT Reviewed date:04/02/2025 05:17:28 PM Interpretation: Performing Lab: Notes/Report: [facility] , Partial Thromboplastin Time 30.2 22.3-36.2 sec Performing Lab: see note - [facility] LB AMMONIA Reviewed date:04/02/2025 05:17:28 PM Interpretation: Performing Lab: Notes/Report: [facility] , Ammonia 18 11-32 umol/L Performing Lab: see note - [facility] LB Campylobacter Culture Reviewed date:01/23/2025 09:01:18 AM Interpretation: Performing Lab: Notes/Report: [facility] , Campylobacter Culture See Below For Report No Campylobacter species isolated. Campylobacter Culture Performing Lab: see note LC - [facility] LB C. Difficile PCR Reviewed date:01/17/2025 09:24:34 AM Interpretation: Performing Lab: Notes/Report: [facility] , C. Difficile PCR NEGATIVE Performing Lab: see note ML - [facility] LB Ova + Parasite Exam Reviewed date:01/18/2025 08:38:03 PM Interpretation: Performing Lab: Notes/Report: STOOL [facility] , Ova + Parasite Exam Final report . trichrome stained smear. This test does not include testing These results were obtained using wet preparation(s) and for Cryptosporidium parvum, Cyclospora, or Microsporidia. Result 1 Comment . Performed at: [facility] Director Trading: Raman Martines PhD, Phone: [phone] a parasitic infection. No ova, cysts, or parasites seen. [address] [place] [phone] One negative specimen does not rule out the possibility of Performing Lab: see note - [facility] LB ECG 12 lead Reviewed date:01/10/2025 01:09:25 PM Interpretation: Performing Lab: Notes/Report: Source Facility: [place] [address] [place] [address] Electrocardiograph Report Signed Patient: LAURA ARIAS MR#: [id number] : 1980 Acct:[id number] Age/Sex: 44 / F ADM Date: 01/09/25 Loc: ER Attending Dr: Ordering Physician: Eren Magana M.D. Date of Service: 01/09/25 Procedure(s): ECG 12 lead Accession Number(s): [id number] cc: 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 Signed By: 01/10/25701 DD/ 51 TD/TT: Generator Man: [place] [address] Electrocardiograph Report Signed Patient: LAURA ARIAS MR#: [id number] : 1980 Acct:[id number] Age/Sex: 44 / F ADM Date: 01/09/25 Loc: ER Attending Dr: Ordering Physician: Eren Magana M.D. Date of Service: 01/09/25 Procedure(s): ECG 12 lead Accession Number(s): [id number] cc: 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 Signed By: 01/10/25701 DD/ 51 TD/TT: Generator Man: HCG Qualitative* Reviewed date:01/10/2025 01:09:25 PM Interpretation: Performing Lab: Notes/Report: [facility] , HCG Qualitative NEGATIVE NEGATIVE Performing Lab: see note ML - [facility] LB PROF CHEM 8 (BAS METB) Reviewed date:01/10/2025 01:09:25 PM Interpretation: Performing Lab: Notes/Report: [facility] , Sodium 140 136-145 mmol/L Potassium 3.7 3.5-5.1 mmol/L Chloride 102 98-107 mmol/L Carbon Dioxide 26.0 21.0-32.0 mmol/L Anion Gap 15.7 Glucose 128 74-106 mg/dL Blood Urea Nitrogen 8.0 7.0-18.0 mg/dL Creatinine 0.86 0.55-1.02 mg/dL Estimated GFR ( Maria Luisa >60 >=60 mL/min/1.73m 2 Estimated GFR (Non- Smiley >60 >=60 mL/min/1.73m 2 BUN Creatinine Ratio 9.3 Calcium 8.9 8.5-10.1 mg/dL Performing Lab: see note ML - [facility] LB LIVER PROFILE Reviewed date:01/10/2025 01:09:25 PM Interpretation: Performing Lab: Notes/Report: [facility] , Bilirubin Total 0.3 0.2-1.0 mg/dL Bilirubin Direct 0.1 0.0-0.2 mg/dL Aspartate Amino Transferase 42 15-37 U/L Alanine Aminotransferase 72 14-59 U/L Alkaline Phosphatase 104 46-116 U/L Total Protein 7.2 6.4-8.2 g/dL Albumin Level 3.2 3.4-5.0 g/dL Globulin 4.0 Albumin Globulin Ratio 0.8 Performing Lab: see note ML - [facility] LB LIPASE Reviewed date:01/10/2025 01:09:25 PM Interpretation: Performing Lab: Notes/Report: [facility] , Lipase 30.0 16.0-77.0 U/L Performing Lab: see note ML - [facility] LB CBC AUTO DIFF Reviewed date:01/10/2025 01:09:25 PM Interpretation: Performing Lab: Notes/Report: [facility] , White Blood Count 15.8 4.0-11.0 10 3/uL Red Blood Count 4.23 4.20-5.40 10 6/uL Hemoglobin 11.4 12.0-16.0 g/dL Hematocrit 36.5 36.0-48.0 % Mean Corpuscular Volume 86.3 81.0-99.0 fL Mean Corpuscular Hemoglobin 27.0 26.7-34.0 pg Mean Corpuscular HGB Conc 31.2 29.9-35.2 g/dL Red Cell Distribution Width 14.4 11.0-15.0 % Platelet Count 386 150-450 10 3/uL Mean Platelet Volume 9.1 9.5-13.5 fL Neutrophils Percent Auto 68.5 43.0-75.0 % Lymphocytes Percent Auto 19.4 20.5-60.0 % Monocytes Percent Auto 8.7 1.7-12.0 % Eosinophils Percent Auto 2.6 0.9-7.0 % Basophils Percent Auto 0.2 0.2-2.0 % Immature Granulocytes Pct Auto 0.6 0.0-0.5 % Neutrophils Absolute Auto 10.8 1.4-6.5 10 3/uL Lymphocytes Absolute Auto 3.1 1.2-3.8 10 3/uL Monocytes Absolute Auto 1.4 0.3-0.8 10 3/uL Eosinophils Absolute Auto 0.4 0.0-0.7 10 3/uL Basophils Absolute Auto 0.0 0.0-0.1 10 3/uL Immature Granulocytes Abs Auto 0.10 0.00-0.03 10 3/uL Performing Lab: see note - [facility] AMYLASE Reviewed date:01/10/2025 01:09:25 PM Interpretation: Performing Lab: Notes/Report: [facility] , Amylase 30 25-115 U/L Performing Lab: see note - [facility] US renal bladder Reviewed date:12/13/2024 01:19:24 PM Interpretation: Performing Lab: Notes/Report: Source Facility: [place] [address] Ultrasound Report Signed Patient: LAURA ARIAS MR#: [id number] : 1980 Acct:[id number] Age/Sex: 44 / F ADM Date: 12/13/24 Loc: US Attending Dr: Irvin Martinez M.D. Ordering Physician: Irvin Martinez M.D. Date of Service: 12/13/24 Procedure(s): US renal bladder Accession Number(s): [id number] cc: Irvin Martinez M.D. [place] [address] Patient Name: LAURA ARIAS MRN: [id number] date: 1980 Sex: F Assigned Patient Location: US Current Patient Location: US Accession/Order Number: [id number] Exam Date: 12/13/2024 09:55 Report Date: 12/13/2024 10:24 At the request of: IRVIN MARTINEZ Procedure: US renal bladder EXAMINATION: US renal bladder HISTORY: Hematuria COMPARISON: No relevant comparison available. TECHNIQUE: Ultrasound examination was performed of the bladder. FINDINGS: Right Kidney: Normal in size, contour and echotexture. No solid cortical mass, hydronephrosis or obstructing nephrolithiasis. Height: 5.62 cm Length: 12.50 cm Width: 4.81 cm Left Kidney: Normal in size, contour and echotexture. No solid cortical mass, hydronephrosis or obstructing nephrolithiasis Height: 6.94 cm Length: 13.06 cm Width: 5.41 cm Urinary bladder: Prevoid volume 246 mL. Post void volume 5 mL Ureteral jets: Visualized bilaterally US/US renal bladder IMPRESSION: Normal examination. Electronically authenticated by: RALF BENNETT Date: 12/13/2024 10:24 Dictated By: Ralf Bennett M.D. Signed By: 12/13/24 1027 DD/ 1024 TD/TT: Generator Man: [place] [address] Ultrasound Report Signed Patient: LAURA ARIAS MR#: [id number] : 1980 Acct:[id number] Age/Sex: 44 / F ADM Date: 12/13/24 Loc: US Attending Dr: Andrew Martinez M.D. Ordering Physician: Irvin Martinez M.D. Date of Service: 12/13/24 Procedure(s): US héctor al bladder Accession Number(s): [id number] cc: Irvin Martinez M.D. [place] [id number] Patient Name: LAURA ARIAS MRN: [id number] date: 1980 Sex: F Assigned Patient Location: US Current Patient Loca tion: US Accession/Order Numb er: [id number] Exam Date: 12/13/2024 09:55 Report Date: 12/13/2024 10:24 At the request of: IRVIN MARTINEZ Procedure: US renal bladder EXAMINATION: US chris l bladder HISTORY: Hematuria COMPARISON: No relev ant comparison available. TECHNIQUE: Ultrasoun d examination was performed of the bladder. FINDINGS: Right Kidney: Normal in size, contour and echotexture. No solid cortical mass, hydronephrosis or obstructing nephrolithiasis. Height: 5.62 cm Isa th: 12.50 cm Width: 4.81 cm Left Kidney: Normal in size, contour and echotexture. No solid cortical mass, hydronephrosis or obstructing nephrolithiasis Height: 6.94 cm Isa th: 13.06 cm Width: 5.41 cm Urinary bladder: Pre void volume 246 mL. Post void volume 5 mL Ureteral jets: Visua lized bilaterally U S/US renal bladder IMPRESSION: Normal examination. Electronically authenticated by: RALF BENNETT Date: 12/13/2024 10:24 Dictated By: Arie Bennett M.D. Signed By: 12/13/24 1027 DD/ 1024 TD/TT: Generator Man: Occult Blood* Reviewed date:04/04/2025 07:54:21 PM Interpretation: Performing Lab: Notes/Report: [facility] , Occult Blood Negative Performing Lab: see note - [facility] LB INSULIN Reviewed date:04/03/2025 12:28:18 PM Interpretation: Performing Lab: Notes/Report: [facility] , Insulin 22.6 2.6-24.9 uIU/mL Director Trading: Raman Martines PhD, Phone: [phone] [address] [place], [place] [id number] Performed at: - [facility] Performing Lab: see note - [facility] LB GLYCOHEMOGLOBIN A1C Reviewed date:04/02/2025 05:17:28 PM Interpretation: Performing Lab: Notes/Report: [facility] , Glycohemoglobin A1C 6.2 4.5-6.2 % ADA RECOMMENDED LIMIT 4.0 - 6.0 ACTION SUGGESTED > 7.0 ADA THERAPEUTIC TARGET < 7.0 Estimated Average Glucose 131 Performing Lab: see note - [facility] LB CBC AUTO DIFF Reviewed date:04/02/2025 05:17:28 PM Interpretation: Performing Lab: Notes/Report: [facility] , White Blood Count 9.1 4.0-11.0 10 3/uL Red Blood Count 4.03 4.20-5.40 10 6/uL Hemoglobin 11.1 12.0-16.0 g/dL Hematocrit 34.9 36.0-48.0 % Mean Corpuscular Volume 86.6 81.0-99.0 fL Mean Corpuscular Hemoglobin 27.5 26.7-34.0 pg Mean Corpuscular HGB Conc 31.8 29.9-35.2 g/dL Red Cell Distribution Width 13.4 11.0-15.0 % Platelet Count 402 150-450 10 3/uL Mean Platelet Volume 9.1 9.5-13.5 fL Neutrophils Percent Auto 69.7 43.0-75.0 % Lymphocytes Percent Auto 20.4 20.5-60.0 % Monocytes Percent Auto 7.5 1.7-12.0 % Eosinophils Percent Auto 1.4 0.9-7.0 % Basophils Percent Auto 0.6 0.2-2.0 % Immature Granulocytes Pct Auto 0.4 0.0-0.5 % Neutrophils Absolute Auto 6.3 1.4-6.5 10 3/uL Lymphocytes Absolute Auto 1.9 1.2-3.8 10 3/uL Monocytes Absolute Auto 0.7 0.3-0.8 10 3/uL Eosinophils Absolute Auto 0.1 0.0-0.7 10 3/uL Basophils Absolute Auto 0.1 0.0-0.1 10 3/uL Immature Granulocytes Abs Auto 0.04 0.00-0.03 10 3/uL Performing Lab: see note ML - [facility] LB US right upper quadrant Reviewed date:01/18/2025 08:38:03 PM Interpretation: Performing Lab: Notes/Report: Source Facility: [facility] [place] [address] [place] [address] Ultrasound Report Signed with Rene Patient: LAURA ARIAS MR#: [id number] : 1980 Acct:[id number] Age/Sex: 44 / F ADM Date: 01/15/25 Loc: US Attending Dr: Irvin Martinez M.D. Ordering Physician: Irvin Martinez M.D. Date of Service: 01/15/25 Procedure(s): US right upper quadrant Accession Number(s): [id number] cc: Irvin Martinez M.D. ADDENDUM The [place] [id number] Patient Name: LAURA ARIAS MRN: [id number] date: 1980 Sex: F Assigned Patient Location: US Current Patient Location: US Accession/Order Number: [id number] Exam Date: 01/15/2025 14:49 Report Date: 01/18/2025 08:17 At the request of: IRVIN MARTINEZ Procedure: US right upper quadrant Begin Addendum #1 The report should read: Liver: Craniocaudal length of the liver is 24 cm. Original Report EXAM: US right upper quadrant HISTORY: Right upper quadrant pain COMPARISON: CT abdomen and pelvis 01/10/2025 TECHNIQUE: Ultrasound of the right upper quadrant abdomen. FINDINGS: Liver: Diffusely echogenic and enlarged measuring 24 centimeters. No intrahepatic biliary ductal dilatation. Main portal vein appears patent with appropriate directional flow. Gallbladder: Echogenic foci suggesting gallstones. No pericholecystic fluid or wall thickening Common bile duct: Normal in diameter, measuring 0. 25cm. Right kidney: Normal in size and echogenicity measuring 12 cm. In length No hydronephrosis or renal calculus. Miscellaneous:Sonographic Dorsey sign is noted to be positive. Addendum Dictated By: Ralf Bennett M.D. Addendum Signed By: 01/18/25 0 820 Addendum Cosigned By: WESLEY/ TD/TT: / ADDENDUM US/US right upper quadrant IMPRESSION: Gallstones without pericholecystic fluid or wall thickening. Sonographic Dorsey's sign is noted to be positive. Equivocal for acute cholecystitis. Correlate with LFTs and consider hepatobiliary scintigraphy as clinically warranted. Hepatomegaly with steatosis. Electronically authenticated by: RALF BENNETT Date: 01/18/2025 08:17 Addendum Dictated By: Ralf Bennett M.D. Addendum Signed By: 01/18/25 0 820 Addendum Cosigned By: DD/ TD/TT: / The [address] [address] Patient Name: LAURA ARIAS MRN: [id number] date: 1980 Sex: F Assigned Patient Location: US Current Patient Location: Accession/Order Number: [id number] Exam Date: 01/15/2025 14:49 Report Date: 01/17/2025 15:33 At the request of: IRVIN MARTINEZ Procedure: US right upper quadrant EXAM: US right upper quadrant HISTORY: Right upper quadrant pain COMPARISON: CT abdomen and pelvis 01/10/2025 TECHNIQUE: Ultrasound of the right upper quadrant abdomen. FINDINGS: Liver: Diffusely echogenic and enlarged measuring 24 centimeters. No intrahepatic biliary ductal dilatation. Main portal vein appears patent with appropriate directional flow. Gallbladder: Echogenic foci suggesting gallstones. No pericholecystic fluid or wall thickening Common bile duct: Normal in diameter, measuring 0.25cm. Right kidney: Normal in size and echogenicity measuring 12 cm. In length No hydronephrosis or renal calculus. Miscellaneous:Sonographic Dorsey sign is noted to be positive. US/US right upper quadrant IMPRESSION: Gallstones without pericholecystic fluid or wall thickening. Sonographic Dorsey's sign is noted to be positive. Equivocal for acute cholecystitis. Correlate with LFTs and consider hepatobiliary scintigraphy as clinically warranted. Hepatomegaly with steatosis. Electronically authenticated by: GLENDA ACEVEDO Date: 01/17/2025 15:33 Dictated By: Glenda Acevedo M.D. Signed By: 01/17/25 1535 DD/ 153 TD/TT: Generator Man: The [address] [address] Ultrasound Report Signed with Addenda Patient: LAURA ARIAS MR#: [id number] : 1980 Acct:[id number] Age/Sex: 44 / F ADM Date: 01/15/25 Loc: US Attending Dr: Andrew Martinez M.D. Ordering Physician: Irvin Martinez M.D. Date of Service: 01/15/25 Procedure(s): US rig ht upper quadrant Accession Number(s): [id number] cc: Irvin Martinez M.D. ADDENDUM The [place] [id number] Patient Name: LAURA ARIAS MRN: [id number] date: 1980 Sex: F Assigned Patient Location: US Current Patient Loca tion: US Accession/Order Numb er: [id number] Exam Date: 01/15/2025 14:49 Report Date: 01/18/2025 08:17 At the request of: IRVIN MARTINEZ Procedure: US right upper quadrant Begin Addendum #1 The report should read: Liver: Craniocaudal length of the liver is 24 cm. Original Report EXAM: US right upper quadrant HISTORY: Right upper quadrant pain COMPARISON: CT abdom en and pelvis 01/10/2025 TECHNIQUE: Ultrasoun d of the right upper quadrant abdomen. FINDINGS: Liver: Diffusely echogenic and enlarged measuring 24 centimeters. No intrahepatic biliary ductal dilatation. Main portal vein appears patent with appropriate directio nal flow. Gallbladder: Echogen ic foci suggesting gallstones. No pericholecystic fluid or wall thickening Common bile duct: No rmal in diameter, measuring 0. 25cm. Right kidney: Normal in size and echogenicity measuring 12 cm. In length No hydronephrosis or re nal calculus. Miscellaneous:Sonogr aphic Dorsey sign is noted to be positive. Addendum Dictated By : Ralf Bennett M.D. Addendum Signed By: 01/18/25 0 820 Addendum Cosigned By: DD/ TD/TT: / ADDENDUM U S/US right upper quadrant IMPRESSION: Gallstones without pericholecystic fluid or wall thickening. Sonographic Dorsey's sign is not ed to be positive. Equivocal for acute cholecystitis. Correlate with LFTs and consider hepatobiliary scintigraphy as clinically warranted. Hepatomegaly with steatosis. Electronically authenticated by: RALF BENNETT Date: 01/18/2025 08:17 Addendum Dictated By : Ralf Bennett M.D. Addendum Signed By: 01/18/25 0 820 Addendum Cosigned By: DD/ TD/TT: / [address] [address] Patient Name: LAURA ARIAS MRN: [id number] date: 1980 Sex: F Assigned Patient Location: US Current Patient Location: Accession/Order Numb er: [id number] Exam Date: 01/15/2025 14:49 Report Date: 01/17/2025 15:33 At the request of: IRVIN MARTINEZ Procedure: US right upper quadrant EXAM: US right upper quadrant HISTORY: Right upper quadrant pain COMPARISON: CT abdom en and pelvis 01/10/2025 TECHNIQUE: Ultrasoun d of the right upper quadrant abdomen. FINDINGS: Liver: Diffusely echogenic and enlarged measuring 24 centimeters. No intrahepatic biliary ductal dilatation. Main portal vein appears patent with appropriate directio nal flow. Gallbladder: Echogen ic foci suggesting gallstones. No pericholecystic fluid or wall thickening Common bile duct: No rmal in diameter, measuring 0.25cm. Right kidney: Normal in size and echogenicity measuring 12 cm. In length No hydronephrosis or re nal calculus. Miscellaneous:Sonogr aphic Dorsey sign is noted to be positive. U S/US right upper quadrant IMPRESSION: Gallstones without pericholecystic fluid or wall thickening. Sonographic Dorsey's sign is not ed to be positive. Equivocal for acute cholecystitis. Correlate with LFTs and consider hepatobiliary scintigraphy as clinically warranted. Hepatomegaly with steatosis. Electronically authenticated by: GLENDA ACEVEDO Date: 01/17/2025 15:33 Dictated By: Glenda Acevedo M.D. Signed By: 01/17/25 1535 DD/ 1533 TD/TT: Generator Man: Salmonella/Shigella Screen Reviewed date:01/23/2025 09:01:18 AM Interpretation: Performing Lab: Notes/Report: [facility] , Salmonella/Shigella Screen See Below For Report Salmonella/Shigella Screen Salmonella/Shigella Screen No Salmonella or Shigella recovered. Salmonella/Shigella Screen Performing Lab: see note LC - [facility] LB E coli Shiga Toxin EIA Reviewed date:01/23/2025 09:01:18 AM Interpretation: Performing Lab: Notes/Report: [facility] , E coli Shiga Toxin EIA See Below For Report WILL FOLLOW E coli Shiga Toxin EIA E coli Shiga Toxin EIA Negative WILL FOLLOW E coli Shiga Toxin EIA E coli Shiga Toxin EIA Performed at: - [facility] WILL FOLLOW E coli Shiga Toxin EIA E coli Shiga Toxin EIA [address] [place], [place] [phone] WILL FOLLOW E coli Shiga Toxin EIA E coli Shiga Toxin EIA Director Trading: Jose Alfredo Martines PhD, Phone: [phone] WILL FOLLOW E coli Shiga Toxin EIA Performing Lab: see note SEE REPORT - General Office Assistant Id information not found for OBX-specific producer arborist manager legend - [facility] LB CT abdomen pelvis w con Reviewed date:01/23/2025 09:01:19 AM Interpretation: Performing Lab: Notes/Report: Source Facility: [facility] [address] [place] [address] CT Scan Report Signed with Rene Patient: LAURA ARIAS MR#: [id number] : 1980 Acct:[id number] Age/Sex: 44 / F ADM Date: 01/09/25 Loc: ER Attending Dr: Ordering Physician: Eren Magana M.D. Date of Service: 01/09/25 Procedure(s): CT abdomen pelvis w con Accession Number(s): [id number] cc: Irvin Martinez M.D. ADDENDUM [facility] [address] Patient Name: LAURA ARIAS MRN: [id number] date: 1980 Sex: F Assigned Patient Location: ER Current Patient Location: Accession/Order Number: [id number] Exam Date: 01/09/2025 23:59 Report Date: 01/20/2025 10:01 At the request of: EREN MAGANA Procedure: CT abdomen pelvis w con Begin Addendum #1 review of the images was made at the request of the ordering physician. The original report should read: Liver: Craniocaudal length of the liver approximately [address] OF THE ABDOMEN AND PELVIS WITH CONTRAST: 01/09/2025 11:59 PM EST CLINICAL HISTORY: Right upper quadrant pain. History of gallstones. COMPARISONS: Right upper quadrant ultrasound 04/13/[address] abdomen and pelvis without 07/18/2019. TECHNIQUE: Thin section axial CT images were obtained from the lung bases to the pubis symphysis. This CT exam was performed using one or more of the following dose reduction techniques: Automated exposure control, adjustment of the mA and/or kV according to patient size, or use of iterative reconstruction technique. Thin section coronal and sagittal images were reconstructed from the axial data set. All images were reviewed and interpreted. CONTRAST: Intravenous contrast was administered. Type and amount is documented at the local institution. FINDINGS: LUNG BASES: No consolidation or pleural fluid. LIVER: There is a severe hepatic steatosis with secondary hepatic enlargement. Craniocaudal length of spleen approximately almost 24 cm. No hepatic mass or cyst. Normal portal vein enhancement. GALLBLADDER: Small dependent calcified gallstone measures 4 to [address] evidence of cholecystitis. BILIARY TREE: No ductal dilatation. PANCREAS: Normal. SPLEEN: Normal. ADRENALS: Normal. KIDNEYS: Normal, without urolithiasis or hydronephrosis. URINARY BLADDER: Grossly unremarkable. PELVIC STRUCTURES: Bilateral tubal ligation clips. Incidental simple right ovarian follicular cyst measuring 2. 5 cm maximum. Physiologic. No follow-up needed. Pelvic structures otherwise negative. No mass or fluid collection. BOWEL: No evidence of obstruction, gross mass, or inflammatory change. There is no significant diverticulosis. There is no evidence of diverticulitis. APPENDIX: No active disease with normal appendix. LYMPH NODES: No pathologically enlarged lymph nodes identified. PERITONEUM: No intraperitoneal free air. No free intraperitoneal fluid. MESENTERY: Unremarkable. RETROPERITONEUM: The retroperitoneum is unremarkable. AORTO ILIAC ARTERIES: Normal in caliber. No dissection. BODY WALL: No body wall mass. OSSEOUS STRUCTURES: Unremarkable. Addendum Dictated By: Ralf Bennett M.D. Addendum Signed By: 01/20/25 1 236 Addendum Cosigned By: DD/ TD/TT: / ADDENDUM CT/CT abdomen pelvis w con IMPRESSION: 1. No acute abdominal or pelvic pathology. 2. Severe hepatic steatosis with associated hepatomegaly. 3. Tubal ligation clips. Electronically authenticated by: RALF BENNETT Date: 01/20/2025 10:01 Addendum Dictated By: Ralf Bennett M.D. Addendum Signed By: 01/20/25 1 236 Addendum Cosigned By: DD/ TD/TT: / [facility] [id number] Patient Name: LAURA ARIAS MRN: [id number] date: 1980 Sex: F Assigned Patient Location: ER Current Patient Location: ER Accession/Order Number: [id number] Exam Date: 01/09/2025 23:59 Report Date: 01/10/2025 01:19 At the request of: EREN MAGANA Procedure: CT abdomen pelvis w con CT OF THE ABDOMEN AND PELVIS WITH CONTRAST: 01/09/2025 11:59 PM EST CLINICAL HISTORY: Right upper quadrant pain. History of gallstones. COMPARISONS: Right upper quadrant ultrasound 04/13/[address] abdomen and pelvis without 07/18/2019. TECHNIQUE: Thin section axial CT images were obtained from the lung bases to the pubis symphysis. This CT exam was performed using one or more of the following dose reduction techniques: Automated exposure control, adjustment of the mA and/or kV according to patient size, or use of iterative reconstruction technique. Thin section coronal and sagittal images were reconstructed from the axial data set. All images were reviewed and interpreted. CONTRAST: Intravenous contrast was administered. Type and amount is documented at the local institution. FINDINGS: LUNG BASES: No consolidation or pleural fluid. LIVER: There is a severe hepatic steatosis with secondary hepatic enlargement. Craniocaudal length of spleen approximately almost 24 cm. No hepatic mass or cyst. Normal portal vein enhancement. GALLBLADDER: Small dependent calcified gallstone measures 4 to [address] evidence of cholecystitis. BILIARY TREE: No ductal dilatation. PANCREAS: Normal. SPLEEN: Normal. ADRENALS: Normal. KIDNEYS: Normal, without urolithiasis or hydronephrosis. URINARY BLADDER: Grossly unremarkable. PELVIC STRUCTURES: Bilateral tubal ligation clips. Incidental simple right ovarian follicular cyst measuring 2.5 cm maximum. Physiologic. No follow-up needed. Pelvic structures otherwise negative. No mass or fluid collection. BOWEL: No evidence of obstruction, gross mass, or inflammatory change. There is no significant diverticulosis. There is no evidence of diverticulitis. APPENDIX: No active disease with normal appendix. LYMPH NODES: No pathologically enlarged lymph nodes identified. PERITONEUM: No intraperitoneal free air. No free intraperitoneal fluid. MESENTERY: Unremarkable. RETROPERITONEUM: The retroperitoneum is unremarkable. AORTO ILIAC ARTERIES: Normal in caliber. No dissection. BODY WALL: No body wall mass. OSSEOUS STRUCTURES: Unremarkable. CT/CT abdomen pelvis w con IMPRESSION: 1. No acute abdominal or pelvic pathology. 2. Severe hepatic steatosis with associated hepatomegaly. 3. Tubal ligation clips. Electronically authenticated by: PILAR POTTS Date: 01/10/2025 01:19 Dictated By: Pilar Potts D.O. Signed By: 01/10/25 0121 DD/ 0119 TD/TT: Generator Man: [place] [address] CT Scan Report Signed with Addenda Patient: LAURA ARIAS MR#: [id number] : 1980 Acct:[id number] Age/Sex: 44 / F ADM Date: 01/09/25 Loc: ER Attending Dr: Ordering Physician: Eren Magana M.D. Date of Service: 01/09/25 Procedure(s): CT abd omen pelvis w con Accession Number(s): [id number] cc: Irvin Martinez M.D. ADDENDUM [facility] [place] [address] Patient Name: LAURA ARIAS MRN: [id number] date: 1980 Sex: F Assigned Patient Location: ER Current Patient Loca tion: US Accession/Order Numb er: [id number] Exam Date: 01/09/2025 23:59 Report Date: 01/20/2025 10:01 At the request of: EREN MAGANA Procedure: CT abdome n pelvis w con Begin Addendum #1 review of the images was made at the request of the ordering physician. The original report should read: Liver: Craniocaudal length of the liver approximately [address] OF THE ABDOMEN AN D PELVIS WITH CONTRAST: 01/09/2025 11:59 PM EST CLINICAL HISTORY: Ri ght upper quadrant pain. History of gallstones. COMPARISONS: Right u pper quadrant ultrasound 04/13/[address] abdomen and pelvis without 07/18/2019. TECHNIQUE: Thin sect ion axial CT images were obtained from the lung bases to the pubis symphysis. This CT exam was performed using one or more of the following dose reduc tion techniques: Automated exposure control, adjustment of the mA and/or kV according to patient size, or use of iterative reconstruction technique. Thin sect ion coronal and sagittal images were reconstructed from the axial data set. All images were reviewed and interpreted. CONTRAST: Intravenou s contrast was administered. Type and amount is documented at the local institution. FINDINGS: LUNG BASES: No consolidation or pleural fluid. LIVER: There is a se jessica hepatic steatosis with secondary hepatic enlargement. Craniocaudal length of spleen approximately almost 24 cm. No hepatic mass or cyst. Normal portal vein enhancement. GALLBLADDER: Small dependent calcified gallstone measures 4 to [address] evidence of cholecystitis. BILIARY TREE: No andry elizabeth dilatation. PANCREAS: Normal. SPLEEN: Normal. ADRENALS: Normal. KIDNEYS: Normal, wit hout urolithiasis or hydronephrosis. URINARY BLADDER: Mateusz ssly unremarkable. PELVIC STRUCTURES: Bilateral tubal ligation clips. Incidental simple right ovarian follicular c yst measuring 2. 5 cm maximum. Physiologic. No follow-up needed. Pelvic struc tures otherwise negative. No mass or fluid collection. BOWEL: No evidence o f obstruction, gross mass, or inflammatory change. There is no significant diverticulosis. There is no evidence of diverticulitis. APPENDIX: No active disease with normal appendix. LYMPH NODES: No pathologically enlarged lymph nodes identified. PERITONEUM: No intraperitoneal free air. No free intraperitoneal fluid. MESENTERY: Unremarkable. RETROPERITONEUM: The retroperitoneum is unremarkable. AORTO ILIAC ARTERIES : Normal in caliber. No dissection. BODY WALL: No body w all mass. OSSEOUS STRUCTURES: Unremarkable. Addendum Dictated By : Ralf Bennett M.D. Addendum Signed By: 01/20/25 1 236 Addendum Cosigned By: DD/ TD/TT: / ADDENDUM C T/CT abdomen pelvis w con IMPRESSION: 1. No acute abdomina l or pelvic pathology. 2. Severe hepatic steatosis with associated hepatomegaly. 3. Tubal ligation clips. Electronically authenticated by: RALF BENNETT Date: 01/20/2025 10:01 Addendum Dictated By : Ralf Bennett M.D. Addendum Signed By: 01/20/25 1 236 Addendum Cosigned By: DD/ TD/TT: / [place] [address] Patient Name: LAURA ARIAS MRN: [id number] date: 1980 Sex: F Assigned Patient Location: ER Current Patient Loca tion: ER Accession/Order Numb er: [id number] Exam Date: 01/09/2025 23:59 Report Date: 01/10/2025 01:19 At the request of: EREN MAGANA Procedure: CT abdome n pelvis w con CT OF THE ABDOMEN AN D PELVIS WITH CONTRAST: 01/09/2025 11:59 PM EST CLINICAL HISTORY: Ri ght upper quadrant pain. History of gallstones. COMPARISONS: Right u pper quadrant ultrasound 04/13/[address] abdomen and pelvis without 07/18/2019. TECHNIQUE: Thin sect ion axial CT images were obtained from the lung bases to the pubis symphysis. This CT exam was performed using one or more of the following dose reduc tion techniques: Automated exposure control, adjustment of the mA and/or kV according to patient size, or use of iterative reconstruction technique. Thin sect ion coronal and sagittal images were reconstructed from the axial data set. All images were reviewed and interpreted. CONTRAST: Intravenou s contrast was administered. Type and amount is documented at the local institution. FINDINGS: LUNG BASES: No consolidation or pleural fluid. LIVER: There is a se jessica hepatic steatosis with secondary hepatic enlargement. Craniocaudal length of spleen approximately almost 24 cm. No hepatic mass or cyst. Normal portal vein enhancement. GALLBLADDER: Small dependent calcified gallstone measures 4 to [address] evidence of cholecystitis. BILIARY TREE: No andry elizabeth dilatation. PANCREAS: Normal. SPLEEN: Normal. ADRENALS: Normal. KIDNEYS: Normal, wit hout urolithiasis or hydronephrosis. URINARY BLADDER: Mateusz ssly unremarkable. PELVIC STRUCTURES: Bilateral tubal ligation clips. Incidental simple right ovarian follicular c yst measuring 2.5 cm maximum. Physiologic. No follow-up needed. Pelvic struc tures otherwise negative. No mass or fluid collection. BOWEL: No evidence o f obstruction, gross mass, or inflammatory change. There is no significant diverticulosis. There is no evidence of diverticulitis. APPENDIX: No active disease with normal appendix. LYMPH NODES: No pathologically enlarged lymph nodes identified. PERITONEUM: No intraperitoneal free air. No free intraperitoneal fluid. MESENTERY: Unremarkable. RETROPERITONEUM: The retroperitoneum is unremarkable. AORTO ILIAC ARTERIES : Normal in caliber. No dissection. BODY WALL: No body w all mass. OSSEOUS STRUCTURES: Unremarkable. C T/CT abdomen pelvis w con IMPRESSION: 1. No acute abdomina l or pelvic pathology. 2. Severe hepatic steatosis with associated hepatomegaly. 3. Tubal ligation clips. Electronically authenticated by: PILAR POTTS Date: 01/10/2025 01:19 Dictated By: Pilar Potts D.O. Signed By: 01/10/25 0121 DD/ 0119 TD/TT: Generator Man: Reason For Referral No Information Medications Medication [...] Twice Daily for 90 days 04/29/2025 Active eal Blood Glucose Test Str - Use 1 strip to check glucose daily DX E11.9 for 90 days 04/29/2025 Unknown Lisinopril 10 MG 1 tablet Orally Once a day Unknown Social History Tobacco Use: Social History Observation Description Date Details (start date - stop date) Former Smoker 12/01/2005 - 03/01/2024 Alcohol Screen (Audit-C) Question Answer Notes Did you have a drink containing alcohol in the p ast year? No Points 0 Interpretation Negative Tobacco Control (Standard) Question Answer Notes Tobacco use: Former smoker When did you start smoking? 12/01/2005 When did you stop smoking? 03/01/2024 How long has it been since you last smoked? 1-3 months AUDIT-C (Standard) Question Answer Notes Did you have a drink containing alcohol in the p ast year? No Points 0 Interpretation Negative Problems Problem Type SNOMED Code ICD Code Onset Dates Problem Status W/U Status Risk Notes Problem Palpitations (39323969) Palpitations (R00.2) Active confirmed Problem Chest pain (12450090) Chest pain (R07.9) Active confirmed Problem Psoriasis (0980218) Psoriasis (L40.9) Active confirmed Problem Hypertension (77634428) Hypertension (I10) Active confirmed Problem Osteoarthritis (996560930) Osteoarthritis (M19.90) Active confirmed Problem Anxiety (70634780) Anxiety (F41.9) Active confi rmed Problem Edema (44532626) Edema (R60.9) Active confirmed Problem Sleep apnea (04283551) Sleep apnea (G47.30) Active confirmed Problem Insomnia (221722741) Insomnia (G47.00) Active confirmed Problem Hematuria (70915754) Hematuria (R31.9) Active confirmed Problem Lumbar radiculopathy (694813986) Lumbar radiculopathy (M54.16) Active confirmed Problem Sinusitis (04123303) Sinusitis (J32.9) Active confirmed Problem Acute bronchitis (32402091) Acute bronchitis (J20.9) Active confirmed Problem Fatty liver (679522073) Fatty liver (K76.0) Active confirmed Problem Well adult (415260136) Well adult (Z00.00) Active confirmed Problem Cervical lymphadenopathy (171520554) Cervical lymphadenopathy (R59.0) Active confirmed Problem Right upper quadrant pain (355078210) Right upper quadrant abdominal pain (R10.11) Active confirmed Problem Diverticulitis of colon (467329358) Diverticulitis large intestine (K57.32) Active confirmed Problem Gastroenteritis (34057264) Gastroenteritis (K52.9) Active confirmed Problem Overweight (344407556) Over weight (E66.3) Active confirmed Problem Iron deficiency anemia (50624341) Anemia, iron deficiency (D50.9) Active confirmed Problem Ocular migraine (49480178) Ocular migraine (G43.109) Active confirmed Problem Night sweats (39694575) Night sweats (R61) Active confirmed Problem Chronic gastritis (9824647) Chronic gastritis (K29.50) Active confirmed Problem Ankle edema (43836143) Ankle edema (R60.0) Active confirmed Problem Otitis externa (4003132) Otitis external (H60.90) Active confirmed Problem Diaphragmatic hernia (02823008) Hernia, hiatal (K44.9) Active confirmed Problem Peripheral vertigo (75710487) Vertigo, peripheral (H81.399) Active confirmed Problem Edema (444541171) Edema of leg (R60.0) Active confirmed Problem Disease caused by Severe acute respiratory syndrome coronavirus 2 (disorder) (068613495) COVID-19 virus infection (U07.1) Active confirmed Problem Candidiasis of vagina (disorder) (77638805) Yeast vaginitis (B37.31) Active confirmed Vital Signs Temperature 98.4 degrees Fahrenheit 04/28/2025 Blood pressure diastolic 72 mm Hg 04/28/2025 Height 66 in 04/28/2025 Blood pressure systolic 124 mm Hg 04/28/2025 Weight 277.0 lbs 04/28/2025 BMI 44.7 kg/m2 04/28/2025 Encounters Encounter Location Date Provider Diagnosis [facility] [address] [place] [address] 04/29/2025 Mark Hoy Fever R50.9 [facility] [address] [place] [address] 04/29/2025 Mark Hoy [facility] [address] [place] [address] 05/16/2025 Mark Hoy [facility] [address] [place] [address] 05/23/2025 Mark Hoy [facility] [address] [place] [address] 01/10/2025 Mark Hoy Fatty liver K76.0 [facility] [address] [place] [address] 01/13/2025 Mark Hoy Fatty liver K76.0 [facility] [address] [facility] [place] [address] 01/15/2025 Mark Hoy [facility] [address] [facility] [place] [address] 01/17/2025 Mark Hoy [facility] [address] [facility] [place] [address] 04/02/2025 Mark Hoy [facility] [address] [facility] [place] [address] 04/26/2025 Mark Hoy Acute bronchitis, unspecified organism J20.9 [facility] [address] [facility] [place] [address] 11/30/2024 Mark Hoy Edema R60.9 [facility] [address] [facility] [place] [address] 12/13/2024 Mark Hoy Abdominal pain R10.9 [facility] [address] [facility] [place] [address] 12/22/2024 Mark Hoy [facility] [address] [facility] [place] [address] 03/30/2025 Mark Hoy Well adult Z00.00 [facility] [address] [facility] [place] [address] 04/28/2025 Mark Hoy Fever R50.9 and Low back pain, unspecified M54.50 [facility] [address] [facility] [place] [address] 11/29/2024 Mark Hoy Edema R60.9 ; Edema of leg R60.0 ; Sleep apnea G47.30 and Hematuria R31.9 [facility] [address] [facility] [place] [address] 12/24/2024 Mark Hoy Acute bronchitis, unspecified organism J20.9 [facility] [address] [facility] [place] [address] 01/13/2025 Mark Hoy Right upper quadrant abdominal pain R10.11 [facility] [address] [facility] [place] [address] 03/16/2025 Mark Hoy Hypertension I10 and Vertigo R42 Assessments Encounter Date Diagnosis (ICD Code) Assessment Notes Treatment Notes Treatment Clinical Notes Section Notes 12/24/2024 Acute bronchitis, unspecified organism (ICD-10 - J20.9) Rest and drink more liquids, especially water. You may use a humidifier or vaporizer to help keep the drainage moist. Fhcj-dwu-fzxicki Nasal Saline may help the stuffy and runny nose. Use Ibuprofen and or Tylenol as needed for fever, chills, body aches or pain. Children 5 years old should not be given gxqu-gmt-oohiezt cough and cold medications such as guaifenesin and dextromethorphan. If you're over age 5, you may try cdct-jyv-cqsvomo cold medications such as guaifenesin and dextromethorphan, or multi-symptom cold reliever such as Dayquil to help reduce the symptoms. Antibiotics have been prescribed. You should take these until completed and follow the directions. Antibiotics can sometimes cause upset stomach, and in rare cases, serious allergic reactions or serious gastrointestinal problems. If you start having severe abdominal pain, severe vomiting, or bloody diarrhea, you should be reevaluated by your physician or urgent care immediately. Follow up with your Primary Care Provider or return to clinic if symptoms do not improve within 3-5 days. If you develop severe symptoms such as shortness of breath, repeated vomiting, coughing up blood, or chest pain you should go to the emergency room or call 911 01/13/2025 Right upper quadrant abdominal pain (ICD-10 - R10.11) 03/16/2025 Hypertension (ICD-10 - I10) will try offBP meds and see 03/16/2025 Vertigo (ICD-10 - R42) Serous otits - not chronic 03/30/2025 Well adult (ICD-10 - Z00.00) 04/28/2025 Fever (ICD-10 - R50.9) 04/28/2025 Low back pain, unspecified (ICD-10 - M54.50) 11/30/2024 Edema (ICD-10 - R60.9) 12/13/2024 Abdominal pain (ICD-10 - R10.9) 01/10/2025 Fatty liver (ICD-10 - K76.0) 01/13/2025 Fatty liver (ICD-10 - K76.0) 04/26/2025 Acute bronchitis, unspecified organism (ICD-10 - J20.9) 04/29/2025 Fever (ICD-10 - R50.9) 11/29/2024 Edema (ICD-10 - R60.9) 11/29/2024 Edema of leg (ICD-10 - R60.0) 11/29/2024 Sleep apnea (ICD-10 - G47.30) 11/29/2024 Hematuria (ICD-10 - R31.9) Plan Of Treatment Pending Test Test Name Order Date UA (URINALYSIS, COMPLETE) 12/13/2024 HEMOGLOBIN A1C (GLYCO) 03/30/2025 IRON, TOTAL 03/30/2025 MERCURY, BLOOD 04/30/2023 LIPID PANEL (CHOL/TRIG/HDL/LDL) 03/30/20 25 US Lower Extremity LT 04/08/2024 US Lower Extremity RT 04/08/2024 UA DIP NONAUTO WO MICRO (15988) - IN OFF ICE 04/28/2025 Urine Culture 12/13/2024 MTHFR A223V GENE MUT 04/30/2023 Sleep study - Diagnostic Polysonogram Insulin Level 03/30/2025 CMP - Comprehensive Metabolic Panel 12/01 Lead, Blood (Adult) (LC) 04/30/2023 US Abdomen - Limited 04/13/2024 STOOL OCCULT BLOOD 03/30/2025 US Abd Pelvis and Transvaginal 4 AMMONIA 01/10/2025 CBC AUTO DIFF 01/10/2025 CBC AUTO DIFF 12/13/2024 CBC AUTO DIFF 04/30/2023 CULTURE URINE 04/30/2023 ESTRADIOL 04/30/2023 FSH 04/30/2023 GLYCOHEMOGLOBIN A1C 04/30/2023 HOMOCYSTEINE 04/30/2023 LIVER PROFILE 01/13/2025 LIVER PROFILE 01/10/2025 PROF 14(COMP METB) 04/30/2023 PROGESTERONE 04/30/2023 PROLACTIN 04/30/2023 PTT 01/10/2025 THYROID PROFILE WITH TSH 04/08/2024 UA RANDOM W or MICROSCOPIC 04/30/2023 URINE MICROSCOPIC ONLY 12/13/2024 US ABD 01/13/2025 US PELVIS AND TRANSVAG 04/13/2024 THYROID PANEL (T4/TSH/FREE T3) 5 THYROID PANEL (T4/TSH/FREE T3) 3 PROTIME-INR 01/10/2025 CMP (COMP MET ATKINS) w/eGFR CKD-EPI 2024 CBC WITH DIFF 03/30/2025 Insurance Providers Payer Name Payer Address Payer Phone Subscriber Number Group Number Insured Name Patient Relationship to Insured Coverage Start Date Coverage End Date [employer] [address] [place] [address] [phone] [id number] Laura Arias Self - patient is the insured Medical (General) History Medical History History ICD Code Otitis external H60.90 Over weight E66.3 COVID-19 virus infection U07.1 Palpitations R00.2 Cervical lymphadenopathy R59.0 Acute bronchitis J20.9 Edema of leg R60.0 Night sweats R61 Vertigo, peripheral H81.399 Lumbar radiculopathy M54.16 Psoriasis L40.9 Well adult Z00.00 Sinusitis J32.9 Gastroenteritis K52.9 Chronic gastritis K29.50 Hernia, hiatal K44.9 Diverticulitis large intestine K57.32 Anemia, iron deficiency D50.9 Chest pain R07.9 Ankle edema R60.0 Osteoarthritis M19.90 Anxiety F41.9 Insomnia G47.00 Ocular migraine G43.109 Hypertension I10 Surgical History Surgery Date(Month/Year) Right Knee Arthroscopy EGD/Colonoscopy 05/2018
--- OUTSIDE RECORDS SUMMARY | 2025-08-08 07:03 | XMS_ITS | Clinical Summary ---
Author Organization [facility] Healthcare Address [address] [place] [address] Care Team Providers Care Registered Nurse Float Pool Name Role Phone Isac Cook MD Primary Care Provider [phone] Allergies Active Allergy Reactions Criticality Noted Date Comments Latex Hives,Itching,Rash,Swelling Low 12/01/18 85 Simvastatin Rash Low 04/24/2022 Wound Dressing Adhesive Rash Low 01/22/2024 Medications lisinopril 20 MG tablet Take 20 mg by mouth in the morning. Active dilTIAZem ER (Tiazac) 180 MG 24 hr capsule Take 180 mg by mouth in the morning. Active azithromycin (Zithromax Z-[place]) 250 MG tabletIndication s:Upper respiratory tract infection, unspecified type As directed 6 tablet 4 Active albuterol HFA (Ventolin HFA) 90 mcg/act inhalerIndicatio ns:Upper respiratory tract infection, unspecified type Inhale 2 puffs every 4 (four) hours if needed for wheezing 18 g 1 4 Active metFORMIN XR (Glucophage-XR) 500 MG 24 hr tabletIndication s:Encounter for weight management TAKE 1 TABLET BY MOUTH IN THE EVENING WITH A MEAL DO NOT CRUSH, CHEW, OR SPLIT 30 tablet 3 4 Active Family History Medical History Relation Name Comments Colon cancer Father liver failure Father Dementia Mother Diabetes Mother Heart failure Mother covid Mother ischemic stroke Mother Relation Name Status Comments Father Mother Social History Tobacco Use Types Packs/Day Years Used Date Smoking Tobacco: Never Assessed Comments No Sex and Gender Information Value Date Recorded Sex Assigned at Female 12/24/2023 12:26 PM EST Legal Sex Female 12:48 PM EST Gender Identity Female 12/24/2023 12:26 PM EST Sexual Orientation Straight 12/24/2023 12 :26 PM EST Last Filed Vital Signs Vital Sign Reading Time Taken Comments Blood Pressure 124/72 01/22/2024 9:54 AM EST Pulse - - Temperature - - Respiratory Rate - - Oxygen Saturation - - Inhaled Oxygen Concentration - - Weight 127 kg (280 lb) 01/22/2024 9:54 AM EST Height 167.6 cm (5' 6 ) 12/25/2023 9:08 AM EST Body Mass Index 45.19 12/25/2023 9:08 AM EST Plan of Treatment Health Maintenance Due Date Last Done Comments Pap Smear 2002 Cervical Cancer Screening 2011 HPV/Cotest 2011 Mammogram 2021 Influenza Vaccine (#1) 2025 Care Teams Registered Nurse Float Pool Relationship Specialty Start Date End Date Isac Cook MD PCP - General Family Medicine 12/25/23
--- OUTSIDE RECORDS SUMMARY | 2025-08-08 07:03 | XMS_ITS | Clinical Summary ---
Author Organization [facility] Address [address] [place] [address] Care Team Providers Care Senior Test Analyst Name Role Phone Unavailable Primary Care Provider Unavailabl e Social History Tobacco Use Types Packs/Day Years Used Date Smoking Tobacco: Never Assessed [place] Safety & Environment Answer Date Rec orded Fear of Current or Ex-Partner Not on file Emotionally Abused Not on file 01/22/2024 Physically Abused Not on file 01/22/2024 Sexually Abused Not on file 01/22/2024 Physically or Sexually Abused Not on file Comments Unknown Sex and Gender Information Value Date Recorded Sex Assigned at Not on file Legal Sex Female 12:40 AM EDT Gender Identity Not on file Sexual Orientation Not on file Plan of Treatment Not on file
--- NOTE | 2025-08-08 07:18 | ED.GENADUL1 ---
HPI HPI - General Adult General Chief complaint: Extremity Injury, Lower Stated complaint: lower extremity injury - [facility] Time Seen by Provider: 08/08/25 07:08 Source: patient Mode of arrival: Wheelchair Limitations: no limitations History of Present Illness HPI narrative: 45-year-old female presents for right knee pain. Just before coming into the emergency department she was at work and when she stepped her knee twisted. She has pain anteriorly. She did not fall. She has a history of issues with this knee and has had to have meniscus surgery on it in the past. No other injury was sustained and the pain is moderate to severe and she is nauseous. Related Data Home Medications ?Medication ?Instructions ?Recorded ?Confirmed diltiazem HCl 180 mg capsule,24 180 mg PO QPM 01/27/24 02/23/24 hr,extended release lisinopril 20 mg tablet 20 mg PO QPM 01/27/24 01/09/25 metformin 500 mg tablet,extended 500 mg PO DAILY 01/27/24 02/23/24 release 24 hr Previous Rx's ?Medication ?Instructions ?Recorded hydrocodone 5 mg-acetaminophen 325 1 tab PO Q4H PRN pain 4 days #16 02/19/24 mg tablet tabs ibuprofen 800 mg tablet 800 mg PO Q8H PRN pain 14 days #40 02/19/24 tabs hydrocodone 5 mg-acetaminophen 325 1 tab PO Q6H PRN pain 7 days #30 01/10/25 mg tablet tabs ondansetron 4 mg disintegrating 4 mg PO Q6H PRN nausea and 01/10/25 tablet vomiting #20 tabs ibuprofen 800 mg tablet 800 mg PO Q8H PRN pain #20 tabs 08/08/25 Allergies Allergy/AdvReac Type Severity Reaction Status Date / Time adhesive tape Allergy blistering Verified 08/08/25 06:57 latex Allergy Rash Verified 08/08/25 06:57 simvastatin Allergy body aches Verified 08/08/25 06:57 Opioid HPI Opioid Management Most Recent Opioid Data: Last Pain Scale 9 01/09/25, 23:46 Review of Systems ROS Narrative A ten point review of systems is negative except as noted above. [facility] Medical History (Updated 08/08/25 @ 07:47 by Khris Womack MD) Methylenetetrahydrofolate reductase (MTHFR) deficiency ?E72.12 - Methylenetetrahydrofolate reductase deficiency (ICD-10) Thrombophilia ?D68.59 - Other primary thrombophilia (ICD-10) Hernia ?K46.9 - Unspecified abdominal hernia without obstruction or gangrene (ICD-10) Irregular periods/menstrual cycles ?N92.6 - Irregular menstruation, unspecified (ICD-10) Request for sterilization ?Z30.2 - Encounter for sterilization (ICD-10) Pelvic pain ?R10.2 - Pelvic and perineal pain (ICD-10) MTHFR gene mutation ?Z15.89 - Genetic susceptibility to other disease (ICD-10) Panic attacks ?F41.0 - Panic disorder [episodic paroxysmal anxiety] (ICD-10) Depression ?F32.A - Depression, unspecified (ICD-10) Anxiety ?F41.9 - Anxiety disorder, unspecified (ICD-10) COVID-19 (11/09/23) ?U07.1 - COVID-19 (ICD-10) Electronic cigarette use ?Z78.9 - Other specified health status (ICD-10) Pneumonia ?J18.9 - Pneumonia, unspecified organism (ICD-10) Migraine ?G43.909 - Migraine, unspecified, not intractable, without status migrainosus (ICD-10) IBS (irritable bowel syndrome) ?K58.9 - Irritable bowel syndrome without diarrhea (ICD-10) Heartburn ?R12 - Heartburn (ICD-10) GERD (gastroesophageal reflux disease) ?K21.9 - Gastro-esophageal reflux disease without esophagitis (ICD-10) Anemia ?D64.9 - Anemia, unspecified (ICD-10) PVC's (premature ventricular contractions) ?I49.3 - Ventricular premature depolarization (ICD-10) High cholesterol ?E78.00 - Pure hypercholesterolemia, unspecified (ICD-10) Hypertension ?I10 - Essential (primary) hypertension (ICD-10) Metabolic syndrome ?E88.810 - Metabolic syndrome (ICD-10) PCOS (polycystic ovarian syndrome) ?E28.2 - Polycystic ovarian syndrome (ICD-10) Elevated hemoglobin A1c ?R73.09 - Other abnormal glucose (ICD-10) Ovarian cyst ?N83.209 - Unspecified ovarian cyst, unspecified side (ICD-10) Surgical History (Updated 02/16/24 @ 11:07 by Dina Guevara) History of esophagogastroduodenoscopy (EGD) ?Z98.890 - Other specified postprocedural states (ICD-10) History of colonoscopy ?Z98.890 - Other specified postprocedural states (ICD-10) History of wisdom tooth extraction ?K08.409 - Partial loss of teeth, unspecified cause, unspecified class (ICD-10) History of arthroscopy of knee ?Z98.890 - Other specified postprocedural states (ICD-10) History of laparoscopy ?Z98.890 - Other specified postprocedural states (ICD-10) History of dilation and curettage ?Z98.890 - Other specified postprocedural states (ICD-10) History of section ?Z98.891 - History of uterine scar from previous surgery (ICD-10) History of tubal ligation ?Z98.51 - Tubal ligation status (ICD-10) Family History (Updated 01/27/24 @ 09:26 by Josselin Shannon NP) Other Family history of colon cancer Family history of diabetes mellitus Family history of heart disease Family history of hypertension Family history of stroke Heart failure Liver failure Social History (Updated 01/27/24 @ 09:17 by Josselin Shannon NP) Within the past year, how often did you have a drink containing alcohol: monthly or less Do you use any of these nicotine containing products: vaping products Non-prescribed substance use: denies use 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 General: The patient appears in no apparent distress. Skin: Warm, dry, no pallor noted. There is no rash noted. Head: Normocephalic, atraumatic Eye: Normal conjunctiva, no drainage Ears, Nose, Mouth, and Throat: oral mucosa is moist. Nares patent. Cardiovascular: Regular Rate and Rhythm Respiratory: Patient is in no distress, no accessory muscle use GI: Nontender Musculoskeletal: The right knee is examined. There is no swelling or obvious deformity. No abrasions or bruises. The knee joint is stable. Neurological: A&O, normal speech Psychiatric: Cooperative Constitutional Vital Signs, click to edit/add: Last Vital Signs Temp 99.5 F 08/08/25 06:58 Pulse 93 H 08/08/25 06:58 Resp 18 08/08/25 06:58 BP 119/72 08/08/25 06:58 Pulse Ox 96 08/08/25 06:58 O2 Del Method Room Air 08/08/25 06:58 Course Vital Signs Vital signs: Vital Signs Temperature 99.5 F 08/08/25 06:58 Pulse Rate 93 H 08/08/25 06:58 Respiratory Rate 18 08/08/25 06:58 Blood Pressure 119/72 08/08/25 06:58 Pulse Oximetry 96 08/08/25 06:58 Oxygen Delivery Method Room Air 08/08/25 06:58 Temperature 99.5 F 08/08/25 06:58 Pulse Rate 93 H 08/08/25 06:58 Respiratory Rate 18 08/08/25 06:58 Blood Pressure 119/72 08/08/25 06:58 Pulse Oximetry 96 08/08/25 06:58 Oxygen Delivery Method Room Air 08/08/25 06:58 Medical Decision Making MDM Narrative Medical decision making narrative: X-ray of her knee on my interpretation shows no acute findings. Ronan wrap applied, application checked by me and felt be appropriate, she is neurovascular intact. She was also placed on crutches and prescribed ibuprofen and will follow-up with her established orthopedist. Treatment diagnosis and follow-up were discussed with the patient. Differential Diagnosis Differential Diagnosis: Knee sprain, fracture, effusion Imaging Data Right knee x-ray: My impression: No acute findings Discharge Plan Discharge Chief Complaint: Extremity Injury, Lower Clinical Impression: Right knee sprain Patient Disposition: Home, Self-Care Time of Disposition Decision: 07:47 Condition: Good Mode of Transportation: Private Vehicle Prescriptions / Home Meds: New ibuprofen 800 mg tablet 800 mg PO Q8H PRN (Reason: pain) Qty: 20 0RF No Action hydrocodone-acetaminophen 5-325 mg tablet 1 tab PO Q6H PRN (Reason: pain) 7 Days Qty: 30 0RF ondansetron 4 mg tablet,disintegrating 4 mg PO Q6H PRN (Reason: nausea and vomiting) Qty: 20 0RF diltiazem HCl 180 mg capsule,extended release 24 hr 180 mg PO QPM lisinopril 20 mg tablet 20 mg PO QPM metformin 500 mg tablet extended release 24 hr 500 mg PO DAILY ibuprofen 800 mg tablet 800 mg PO Q8H PRN (Reason: pain) 14 Days Qty: 40 0RF hydrocodone-acetaminophen 5-325 mg tablet 1 tab PO Q4H PRN (Reason: pain) 4 Days Qty: 16 0RF Print Language: Latvian Instructions: Knee Sprain (ED), Crutch Instructions (ED), How to Use an Elastic Bandage (ED) Referrals: Isac Cook MD [Primary Care Provider, Family Practice] - As needed Blake Styles DO [Physician] - 1 week
--- NOTE | 2025-08-08 07:24 | XR_ITS ---
[facility] [id number] Patient Name: LAURA TRUJILLO MRN: [id number] date: 1980 Sex: F Assigned Patient Location: ER Current Patient Location: Accession/Order Number: [id number] Exam Date: 08/08/2025 07:18 Report Date: 08/08/2025 09:05 At the request of: EREN MAGANA MD Procedure: XR knee RT 3V RIGHT KNEE - 3 views COMPARISON: None CLINICAL DATA: Right knee pain following twisting injury at work. AP, lateral ventricle oblique views were obtained. There is no acute fracture or dislocation. The joint spaces are maintained. There is slight squaring off the articular margins. A trace amount of joint fluid is seen. There is no focal soft tissue swelling. XR/XR knee RT 3V IMPRESSION: NO ACUTE BONY INJURY. Impression dictated by: Ricah Waters M.D. 08/08/2025 9:05 AM Dictation Location: [email or web address] Electronically authenticated by: [id number] Y Date: 08/08/2025 09:05
[2025-08-08] MEDS: ONDANSETRON 4 MG RAPDIS TABLET SL (07:30)
[2025-08-08] MEDS: IBUPROFEN 400 MG TABLET 800 MG PO (07:58)
--- NOTE | 2025-08-08 08:09 | PC.NURSE ---
tutu bandage applied to injured knee, pt tolerated well, crutch training povided
== END 2025-08-08 08:23 | disposition home or self-care (01) ==
PROVIDERS: Emergency Provider Emergency Medicine; PCP Family Medicine
DX: S83.91XA Sprain of unspecified site of right knee, initial encounter (principal); F17.290 Nicotine dependence, other tobacco product, uncomplicated; X50.1XXA Overexertion from prolonged static or awkward postures, initial encounter
CPT/HCPCS: 73562; 99283; Q0162